=== PATIENT | female | born 1935 | race Caucasian/White ===

== ENCOUNTER 2022-09-24 17:08 | Emergency (ER) | payer MEDICARE ==
--- NOTE | 2022-09-24 18:20 | ED ---
Recheck HPI - General Chief Complaint: Recheck/Abnormal Lab/Rx Stated Complaint: abn labs Time Seen by Provider: 09/24/22 18:20 Source: patient, family Mode of arrival: wheelchair - History of Present Illness Initial Comments: Jo Ann is a pleasant 87-year-old female presents the ER today after outpatient labs revealed a hemoglobin of 6.8. Patient was admitted to [facility] in July she had a cardiac cath which identified clean coronary arteries however she had atrial fibrillation and was started on eliquis and Plavix. Since that time she has had frequent nosebleeds she's been seen in the ER for the nosebleeds. Today she had outpatient follow-up with the cardiology office they performed labs and called her to tell her that her hemoglobin was 6.8. Patient does re port that she has some fatigue, she gets short of breath with any activity. She is not having any chest pain. - Related Data Home Medications Medication Instructions Recorded Confirmed Apixaban [Eliquis] 2.5 mg PO DIRECTED 09/24/22 09/24/22 Clopidogrel [Plavix] 75 mg PO DIRECTED 09/24/22 09/24/22 Empagliflozin [Jardiance] 10 mg PO DIRECTED 09/24/22 09/24/22 Metoprolol Succinate [Toprol XL] 100 mg PO DIRECTED 09/24/22 09/24/22 Allergies Allergy/AdvReac Type Severity Reaction Status Date / Time codeine Allergy Unknown Verified 09/24/22 18:10 Review of Systems ROS Statement: Those systems with pertinent positive or pertinent negative responses have been documented in the HPI. ROS Other: All systems not noted in ROS Statement are negative. Past Medical History Past Medical History: Atrial Flutter, Hyperlipidemia, Hypertension, Myocardial Infarction ([place]) History of Any Multi-Drug Resistant Organisms: None Reported Past Surgical History: Adenoidectomy, Heart Catheterization, Tonsillectomy Past Psychological History: No Psychological Hx Reported Smoking Status: Never smoker Past Alcohol Use History: None Reported Past Drug Use History: None Reported General Exam - General Exam Comments Initial Comments: Physical Exam GENERAL: Patient is well-developed and well-nourished. Patient is nontoxic and well-hydrated and is in no distress HENT: Normocephalic, Atraumatic EYES: PERRL, EOMI Conjuntival pallor PULMONARY: Unlabored respirations CARDIOVASCULAR: Tachycardic Warm and well perfused extremities ABDOMEN: Non-distended SKIN: Pale : Deferred NEUROLOGIC: Alert and oriented Normal speech Normal gait MUSCULOSKELETAL: Moving all extremities with no apparent injury PSYCHIATRIC: No SI/HI Course Vital Signs 09/24/22 09/24/22 09/24/22 17:10 20:30 20:40 Temperature 97.7 F Pulse Rate 125 H Respiratory 18 Rate Blood Pressure 114/70 102/72 104/69 O2 Sat by Pulse 97 Oximetry 09/24/22 09/24/22 09/24/22 20:50 21:00 21:20 Temperature 97.1 F L 97.1 F L 98.0 F Pulse Rate 94 93 94 Respiratory 18 18 18 Rate Blood Pressure 103/72 98/67 102/68 O2 Sat by Pulse Oximetry 09/24/22 21:40 Temperature 97.5 F L Pulse Rate 100 Respiratory 16 Rate Blood Pressure 100/65 O2 Sat by Pulse Oximetry Medical Decision Making - Medical Decision Making Patient was seen and evaluated history is obtained from the patient and review of her medical records from [facility]. Patient had outpatient lab with a hemoglobin of 6.8, labs were repeated today and her 7.5 however patient does have symptomatic anemia with tachycardia and exertional dyspnea. Patient consented to blood transfusion, considering that she is a cardiac patient with acute anemia secondary to blood loss and she is symptomatic we will transfuse one unit. A unit of blood was ordered for transfusion. Patient received transf usion without reaction, heart rate improved patient reported feeling somewhat better and was comfortable with plan for discharge home continued outpatient management. Was pt. sent in by a medical professional or institution (, PA, ADVERTISING DISPATCH CLERK, urgent care, hospital, or prison...) When possible be specific @ -Yes, some by char filter operator helper office Did you speak to anyone other than the patient for history (EMS, parent, family, police, friend...)? What history was obtained from this source @ -No Did you review nursing and triage notes (agree or disagree)? Why? @ -I reviewed and agree with nursing and triage notes Were old charts reviewed (outside hosp., previous admission, EMS record, old EKG, old radiological studies, urgent care reports/EKG's, prison records)? Report findings @ -Charts from [facility] were reviewed Differential Diagnosis (chest pain, altered mental status, abdominal pain women, abdominal pain men, vaginal bleeding, weakness, fever, dyspnea, syncope, headache, dizziness, GI bleed, back pain, seizure, CVA, palpatations, mental health, musculoskeletal)? @ -not applicable EKG interpreted by me (3pts min.). @ -As above X-rays interpreted by me (1pt min.). @ -None done CT interpreted by me (1pt min.). @ -None done U/S interpreted by me (1pt. min.). @ -None done What testing was considered but not performed or refused? (CT, X-rays, U/S, labs)? Why? @ -None What meds were considered but not given or refused? Why? @ -None Did you discuss the management of the patient with other professionals (professionals i.e. , PA, ADVERTISING DISPATCH CLERK, lab, RT, psych nurse, social contact worker, scuba instructor, teacher, chief customer officer, correctional case manager)? Give summary @ -No Was smoking cessation discussed for >3mins.? @ -No Was critical care preformed (if so, how long)? @ -Acute symptomatic anemia requiring blood transfusion, critical care time 30 minutes Were there social determinants of health that impacted care today? How? (Homelessness, low income, unemployed, alcoholism, drug addiction, transportation, low edu. Level, literacy, decrease access to med. care, penitentiary, rehab)? @ -No Was there de-escalation of care discussed even if they declined (Discuss DNR or withdrawal of care, Hospice)? DNR status @ -No What co-morbidities impacted this encounter? (DM, HTN, Smoking, COPD, CAD, Cancer, CVA, ARF, Chemo, Hep., AIDS, mental health diagnosis, sleep apnea, morbid obesity)? @ -None Was patient admitted / discharged? Hospital course, mention meds given and route, prescriptions, significant lab abnormalities, going to OR and other p ertinent info. @ -Discharge Undiagnosed new problem with uncertain prognosis? @ -No Drug Therapy requiring intensive monitoring for toxicity (Heparin, Nitro, Insulin, Cardizem)? @ -No Were any procedures done? @ -No Diagnosis/symptom? @ -Symptomatic anemia Acute, or Chronic, or Acute on Chronic? @ -Acute Uncomplicated (without systemic symptoms) or Complicated (systemic symptoms)? @ -Complicated Side effects of treatment? @ -No Exacerbation, Progression, or Severe Exacerbation? @ -No Poses a threat to life or bodily function? How? (Chest pain, [place], [place], pneumonia, PE, COPD, DKA, ARF, appy, cholecystitis, CVA, Diverticulitis, Homicidal, Suicidal, threat to staff... and all critical care pts) @ -Yes - Lab Data Result diagrams: 09/24/22 18:19 09/24/22 18:19 Lab Results 09/24/22 09/24/22 09/24/22 Range/Units 17:40 18:00 18:19 WBC 6.9 (3.8-10.6) k/uL RBC 2.64 L (3.80-5.40) m/uL Hgb 7.5 L (11.4-16.0) gm/dL Hct 23.3 L (34.0-46.0) % MCV 88.4 (80.0-100.0) fL MCH 28.4 (25.0-35.0) pg MCHC 32.2 (31.0-37.0) g/dL RDW 15.7 H (11.5-15.5) % Plt Count 330 (150-450) k/uL MPV 7.8 Neutrophils % 56 % Lymphocytes % 23 % Monocytes % 11 % Eosinophils % 6 % Basophils % 1 % Neutrophils # 3.9 (1.3-7.7) k/uL Lymphocytes # 1.6 (1.0-4.8) k/uL Monocytes # 0.8 (0-1.0) k/uL Eosinophils # 0.4 (0-0.7) k/uL Basophils # 0.1 (0-0.2) k/uL Hypochromasia Marked Poikilocytosis Moderate Sodium (137-145) mmol/L Potassium (3.5-5.1) mmol/L Chloride (98-107) mmol/L Carbon Dioxide (22-30) mmol/L Anion Gap mmol/L BUN (7-17) mg/dL Creatinine (0.52-1.04) mg/dL Est GFR (CKD-EPI)AfAm (>60 ml/min/1.73 sqM) Est GFR (CKD-EPI)NonAf (>60 ml/min/1.73 sqM) Glucose (74-99) mg/dL Calcium (8.4-10.2) mg/dL Total Bilirubin (0.2-1.3) mg/dL AST (14-36) U/L ALT (4-34) U/L Alkaline Phosphatase (38-126) U/L Total Protein (6.3-8.2) g/dL Albumin (3.5-5.0) g/dL Blood Type O Negative Blood Type Confirm O Negative Blood Type Recheck No Previous Record Bld Type Recheck Status CABO Indicated Antibody Screen NEGATIVE Crossmatch See Detail Spec Expiration Date 09/27/2022 - 233909/24/22 Range/Units 18:19 WBC (3.8-10.6) k/uL RBC (3.80-5.40) m/uL Hgb (11.4-16.0) gm/dL Hct (34.0-46.0) % MCV (80.0-100.0) fL MCH (25.0-35.0) pg MCHC (31.0-37.0) g/dL RDW (11.5-15.5) % Plt Count (150-450) k/uL MPV Neutrophils % % Lymphocytes % % Monocytes % % Eosinophils % % Basophils % % Neutrophils # (1.3-7.7) k/uL Lymphocytes # (1.0-4.8) k/uL Monocytes # (0-1.0) k/uL Eosinophils # (0-0.7) k/uL Basophils # (0-0.2) k/uL Hypochromasia Poikilocytosis Sodium 136 L (137-145) mmol/L Potassium 3.9 (3.5-5.1) mmol/L Chloride 108 H (98-107) mmol/L Carbon Dioxide 15 L (22-30) mmol/L Anion Gap 13 mmol/L BUN 23 H (7-17) mg/dL Creatinine 0.72 (0.52-1.04) mg/dL Est GFR (CKD-EPI)AfAm 88 (>60 ml/min/1.73 sqM) Est GFR (CKD-EPI)NonAf 76 (>60 ml/min/1.73 sqM) Glucose 137 H (74-99) mg/dL Calcium 9.0 (8.4-10.2) mg/dL Total Bilirubin 0.8 (0.2-1.3) mg/dL AST 26 (14-36) U/L ALT 21 (4-34) U/L Alkaline Phosphatase 81 (38-126) U/L Total Protein 6.3 (6.3-8.2) g/dL Albumin 3.3 L (3.5-5.0) g/dL Blood Type Blood Type Confirm Blood Type Recheck Bld Type Recheck Status Antibody Screen Crossmatch Spec Expiration Date Disposition Clinical Impression: Symptomatic anemia Disposition: HOME SELF-CARE Condition: Stable Additional Instructions: Follow with your primary care for continued monitoring, return to the ER for evaluation of any worsening fatigue, shortness of breath or any new or concerning symptoms. Is patient prescribed a controlled substance at d/c from ED?: No Referrals: Lynette Valdez DO [Primary Care Provider] - 1-2 days
[2022-09-24 18:38] LABS: Basophils # (A) 0.1 k/uL (0-0.2); Basophils % (A) 1 %; Eosinophils # (A) 0.4 k/uL (0-0.7); Eosinophils % (A) 6 %; HCT 23.3 % (34.0-46.0); HGB 7.5 gm/dL (11.4-16.0); Hypochromasia Marked; Lymphocytes # (A) 1.6 k/uL (1.0-4.8); Lymphocytes % (A) 23 %; MCH 28.4 pg (25.0-35.0); MCHC 32.2 g/dL (31.0-37.0); MCV 88.4 fL (80.0-100.0); Mean Platelet Volume 7.8; Monocytes # (A) 0.8 k/uL (0-1.0); Monocytes % (A) 11 %; Neutrophils # (A) 3.9 k/uL (1.3-7.7); Neutrophils % (A) 56 %; Platelet Count 330 k/uL (150-450); Poikilocytosis Moderate; RBC 2.64 m/uL (3.80-5.40); RDW 15.7 % (11.5-15.5); WBC 6.9 k/uL (3.8-10.6)
[2022-09-24 18:58] LABS: ALT 21 U/L (4-34); AST 26 U/L (14-36); African American GFR (CKD) 88 (>60 ml/min/1.73 sqM); Albumin 3.3 g/dL (3.5-5.0); Alkaline Phosphatase 81 U/L (38-126); Anion Gap 13 mmol/L; Blood Urea Nitrogen 23 mg/dL (7-17); Carbon Dioxide 15 mmol/L (22-30); Chloride 108 mmol/L (98-107); Glucose 137 mg/dL (74-99); Non-African American GFR(CKD) 76 (>60 ml/min/1.73 sqM); Potassium 3.9 mmol/L (3.5-5.1); Sodium 136 mmol/L (137-145); Total Bilirubin 0.8 mg/dL (0.2-1.3); Total Protein 6.3 g/dL (6.3-8.2)
[2022-09-24 22:44] VITALS: RESP 16
[2022-09-24 23:04] VITALS: BP 105/73; PULSE 75; TEMP 98
== END 2022-09-24 23:24 | disposition home or self-care (01) ==
LOC: EC 17:08
DX: D64.9 Anemia, unspecified (principal); I10 Essential (primary) hypertension; I25.2 Old myocardial infarction; I48.91 Unspecified atrial fibrillation; Z88.5 Allergy status to narcotic agent; Z79.01 Long term (current) use of anticoagulants; Z79.899 Other long term (current) drug therapy
CPT/HCPCS: 36415; 86900; 86901; 80053; 85025; 86850; 86920; 99284; 36430; P9016

== ENCOUNTER → 2022-10-08 | Outpatient (CLI) | payer MEDICARE ==
[2022-10-09 02:56] LABS: ALT 23 U/L (8-44); AST 25 U/L (13-35); Albumin 3.3 d/dL (3.8-4.9); Albumin/Globulin Ratio 1.43 Ratio (1.60-3.17); Alkaline Phosphatase 79 U/L (41-126); BUN/Creat Ratio 22.89 Ratio (12.00-20.00); Blood Urea Nitrogen 20.6 mg/dL (9.0-27.0); Calcium 8.7 mg/dL (8.7-10.3); Carbon Dioxide 17.8 mmol/L (21.6-31.8); Chloride 103 mmol/L (96-109); Chol/HDL Ratio 2.99 Ratio; Globulin 2.3 d/dL (1.6-3.3); Glucose 101 mg/dL (70-110); LDL Cholesterol,Calculated 40.6 mg/dL (0.0-131.0); Potassium 3.9 mmol/L (3.5-5.5); Sodium 137 mmol/L (135-145); Total Bilirubin 0.7 mg/dL (0.3-1.2); Total Protein 5.6 d/dL (6.2-8.2)
[2022-10-09 03:05] LABS: HCT 27.5 % (37.2-46.3); HGB 7.7 d/dL (12.0-15.0); MCH 25.7 pg (27.0-32.0); MCV 91.7 FL (80.0-97.0); Mean Platelet Volume 10.2 FL (9.5-12.2); NRBC Per 100 WBC 0 X 10*3/uL (0.00-0.01); Platelet Count 273 X 10*3/uL (140-440); RDW 17.2 % (11.5-14.5); WBC 7.16 X 10*3/uL (4.50-10.00)
== END | disposition home or self-care (01) ==
LOC: LABWHC1 16:18
PROVIDERS: ATTEND Family Medicine
DX: I10 Essential (primary) hypertension (principal); E11.9 Type 2 diabetes mellitus without complications; D64.9 Anemia, unspecified; I48.91 Unspecified atrial fibrillation
CPT/HCPCS: 36415; 80053; 80061; 83036; 84443; 85027

== ENCOUNTER → 2022-12-21 | Outpatient (CLI) | payer MEDICARE ==
[2022-12-21 11:03] LABS: HCT 33.4 % (37.2-46.3); HGB 9.8 d/dL (12.0-15.0); MCH 24.2 pg (27.0-32.0); MCHC 29.3 d/dL (32.0-37.0); MCV 82.5 FL (80.0-97.0); Mean Platelet Volume 9.8 FL (9.5-12.2); NRBC Per 100 WBC 0 X 10*3/uL (0.00-0.01); Platelet Count 242 X 10*3/uL (140-440); RBC 4.05 X 10*6/uL (4.10-5.20); RDW 21.2 % (11.5-14.5)
[2022-12-21 11:38] LABS: ALT 20 U/L (8-44); AST 22 U/L (13-35); Albumin/Globulin Ratio 1.15 Ratio (1.60-3.17); Alkaline Phosphatase 94 U/L (41-126); Blood Urea Nitrogen 31.3 mg/dL (9.0-27.0); Chloride 99 mmol/L (96-109); Globulin 2.6 d/dL (1.6-3.3); Glucose 125 mg/dL (70-110); Potassium 2.3 mmol/L (3.5-5.5); Sodium 143 mmol/L (135-145); Total Bilirubin 1.2 mg/dL (0.3-1.2); Total Protein 5.6 d/dL (6.2-8.2)
== END | disposition home or self-care (01) ==
LOC: LABWHC1 07:18
PROVIDERS: ATTEND Family Medicine
DX: R69 Illness, unspecified (principal)
CPT/HCPCS: 36415; 80053; 85027

== ENCOUNTER 2022-12-28 06:26 | Inpatient (IN) | payer MEDICARE ==
--- NOTE | 2022-12-28 06:43 | ED ---
General Adult HPI - General Source: patient, family, RN notes reviewed Mode of arrival: wheelchair Limitations: altered mental status <Amish Baez - Last Filed: 12/28/22 06:42> <Britt Maradiaga - Last Filed: 12/28/22 16:28> - General Chief complaint: Altered Mental Status Stated complaint: Confusion, leg edema, shaky Time Seen by Provider: 12/28/22 06:42 - History of Present Illness Initial comments: 87-year-old female presents emergency department with family for evaluation of increased confusion, weakness. Patient recently has been placed on Lasix and is had 25 pound weight loss during diuresis. Patient noticed that she's had some notable change in mental status and generalized weakness without any focal weakness patient denies any chest pain she does still have some mild leg edema. They are concerned about possible urinary tract infection. (Amish Baez) 87-year-old female with past history of A. fib, hypertension, hyperlipidemia who presents to the emergency department with weakness. Daughters are at bedside and provided the history. States the patient has been more weak and confused recently. She has had significant water weight gain. It was recommended by her primary that she be admitted to the hospital for diuresis however the patient did not want to be admitted. They then placed the patient on a second diuretic for which the patient has been taking and she lost a significant amount of weight within the past 3 weeks. Patient denies any pain. She denies any difficulty breathing. No abdominal pain. Denies any difficulties having bowel movements. No reported fevers. No falls. No other alleviating, precipitating or modifying factors (Britt Maradiaga) - Related Data Home Medications Medication Instructions Recorded Confirmed B-Core 2 tab PO TID 12/28/22 12/28/22 Cardio Plus 2 cap PO TID 12/28/22 12/28/22 Chlorophyll 1 tab PO TID 12/28/22 12/28/22 L.acidoph,Paracasei, B.lactis 1 cap PO DAILY 12/28/22 12/28/22 [Probiotic] Lifeblood 2 tab PO W/LUNCH 12/28/22 12/28/22 Metoprolol Succinate (ER) [Toprol 25 mg PO HS 12/28/22 12/28/22 Xl] Acton-3 3 cap PO BID 12/28/22 12/28/22 Potassium Chloride [Klor-Con M20] 20 meq PO BID@0600,1200 12/28/22 12/28/22 Prot 1 dose PO TID 12/28/22 12/28/22 Renafood 3 tab PO BID 12/28/22 12/28/22 Therafood 2 tab PO W/LUNCH 12/28/22 12/28/22 Torsemide [Demadex] 20 mg PO DAILY 12/28/22 12/28/22 Vitamin C 1 tab PO DAILY@1900 12/28/22 12/28/22 metOLazone 2.5 mg PO Q2D 12/28/22 12/28/22 Allergies Allergy/AdvReac Type Severity Reaction Status Date / Time codeine Allergy Unknown Verified 12/28/22 12:14 ticagrelor [From Brilinta] AdvReac ASHISH Verified 12/28/22 12:15 Review of Systems ROS Other: All systems not noted in ROS Statement are negative. <Amish Baez - Last Filed: 12/28/22 06:42> ROS Other: All systems not noted in ROS Statement are negative. <Britt Maradiaga - Last Filed: 12/28/22 16:28> ROS Statement: Those systems with pertinent positive or pertinent negative responses have been documented in the HPI. Past Medical History Past Medical History: Atrial Flutter, Hyperlipidemia, Hypertension, Myocardial Infarction ([place]) History of Any Multi-Drug Resistant Organisms: None Reported Past Surgical History: Adenoidectomy, Heart Catheterization, Tonsillectomy Past Psychological History: No Psychological Hx Reported Smoking Status: Never smoker Past Alcohol Use History: None Reported Past Drug Use History: None Reported <Amish Baez - Last Filed: 12/28/22 06:42> General Exam Limitations: altered mental status General appearance: alert, in no apparent distress Head exam: Present: atraumatic, normocephalic, normal inspection <Amish Baez - Last Filed: 12/28/22 06:42> General appearance: alert, in no apparent distress Head exam: Present: atraumatic, normocephalic, normal inspection Eye exam: Present: normal appearance, PERRL, EOMI. Absent: scleral icterus, conjunctival injection, periorbital swelling ENT exam: Present: normal exam, mucous membranes moist Neck exam: Present: normal inspection. Absent: tenderness, meningismus, lymphadenopathy Respiratory exam: Present: rales. Absent: respiratory distress, wheezes, rhonchi, stridor Cardiovascular Exam: Present: tachycardia, irregular rhythm, normal heart sounds. Absent: systolic murmur, diastolic murmur, rubs, gallop, clicks GI/Abdominal exam: Present: soft, normal bowel sounds. Absent: distended, tenderness, guarding, rebound, rigid Extremities exam: Present: normal inspection, full ROM, normal capillary refill. Absent: tenderness, pedal edema, joint swelling, calf tenderness Back exam: Present: normal inspection Neurological exam: Present: alert, oriented X3, CN II-XII intact Psychiatric exam: Present: normal affect, normal mood Skin exam: Present: warm, dry, intact, normal color. Absent: rash <Britt Maradiaga - Last Filed: 12/28/22 16:28> - General Exam Comments Initial Comments: Visual Physical Exam Vital signs reviewed General: Well-appearing, nontoxic, no acute distress. Head: Normocephalic, atraumatic Eyes: PERRLA, EOMI ENT: Airway patent Chest: Nonlabored breathing Skin: No visual rash, normal skin tone Neuro: Alert and oriented 3 Musculoskeletal: No gross abnormalities (Amish Baez) Course Vital Signs 12/28/22 12/28/22 12/28/22 06:32 08:50 09:00 Temperature 97.8 F Pulse Rate 111 H 86 86 Respiratory 18 20 20 Rate Blood Pressure 118/67 145/79 149/85 O2 Sat by Pulse 95 98 98 Oximetry 12/28/22 12/28/22 12/28/22 10:00 12:00 13:00 Temperature Pulse Rate 103 H 110 H 107 H Respiratory 20 20 16 Rate Blood Pressure 98/62 98/60 109/87 O2 Sat by Pulse 98 94 L 94 L Oximetry 12/28/22 12/28/22 14:00 16:00 Temperature Pulse Rate 102 H 95 Respiratory 20 20 Rate Blood Pressure 109/64 105/60 O2 Sat by Pulse 94 L 98 Oximetry Medical Decision Making <Amish Baez - Last Filed: 12/28/22 06:42> - Lab Data Result diagrams: 12/28/22 08:46 12/28/22 08:46 <Britt Maradiaga - Last Filed: 12/28/22 16:28> - Medical Decision Making I performed a quick note portion of this chart signed Amish Baez PA-C (Amish Baez) Was pt. sent in by a medical professional or institution (HOMAR Adame, UNMANNED AIRCRAFT SYSTEMS ROBOTICIST, urgent care, hospital, or shelter...) When possible be specific @ -[No] Did you speak to anyone other than the patient for history (EMS, parent, family, police, friend...)? What history was obtained from this source @ -[No] Did you review nursing and triage notes (agree or disagree)? Why? @ -[I reviewed and agree with nursing and triage notes] Were old charts reviewed (outside hosp., previous admission, EMS record, old EKG, old radiological studies, urgent care reports/EKG's, shelter records)? Report findings @ -[No old charts were reviewed] Differential Diagnosis (chest pain, altered mental status, abdominal pain women, abdominal pain men, vaginal bleeding, weakness, fever, dyspnea, syncope, headache, dizziness, GI bleed, back pain, seizure, CVA, palpatations, mental health, musculoskeletal)? @ -[not applicable] EKG interpreted by me (3pts min.). @ -Yes and demonstrates A. fib with a rate of 108. QRS 117. QTC of 439. Multiple PVCs. No identifiable ST segment elevation or depression. Significant baseline artifact X-rays interpreted by me (1pt min.). @ -[None done] CT interpreted by me (1pt min.). @ -[None done] U/S interpreted by me (1pt. min.). @ -[None done] What testing was considered but not performed or refused? (CT, X-rays, U/S, labs)? Why? @ -[None] What meds were considered but not given or refused? Why? @ -[None] Did you discuss the management of the patient with other professionals (professionals i.e. HOMAR Adame, UNMANNED AIRCRAFT SYSTEMS ROBOTICIST, lab, RT, psych nurse, social and political studies professor, assistant offset press operator, teacher, training systems officer, manager case)? Give summary @ -[No] Was smoking cessation discussed for >3mins.? @ -[No] Was critical care preformed (if so, how long)? @ -[No] Were there social determinants of health that impacted care today? How? (Homelessness, low income, unemployed, alcoholism, drug addiction, transportation, low edu. Level, literacy, decrease access to med. care, correction, rehab)? @ -[No] Was there de-escalation of care discussed even if they declined (Discuss DNR or withdrawal of care, Hospice)? DNR status @ -[No] What co-morbidities impacted this encounter? (DM, HTN, Smoking, COPD, CAD, Cancer, CVA, ARF, Chemo, Hep., AIDS, mental health diagnosis, sleep apnea, morbid obesity)? @ -[None] Was patient admitted / discharged? Hospital course, mention meds given and route, prescriptions, significant lab abnormalities, going to OR and other pertinent info. @ -Upon arrival patient was placed into room 6. Thorough history and physical exam is performed. IV access is established and laboratory studies were conducted. Potassium markedly low at 2.3. Troponin is mildly elevated at 0.044. Chest x-ray demonstrated some pulmonary vascular congestion. Due to patient's reported altered mental status, hypokalemia and elevated troponin she will be admitted. Spoke with Dr. Damon who agreed to admit the patient. I we'll trend the patient's troponins. I will replace her potassium before having her Lasix. Cardiology will be counseled it. Patient is waiting a bed on the floor Undiagnosed new problem with uncertain prognosis? @ -[No] Drug Therapy requiring intensive monitoring for toxicity (Heparin, Nitro, Insulin, Cardizem)? @ -[No] Were any procedures done? @ -[No] Diagnosis/symptom? @ -[default] Acute, or Chronic, or Acute on Chronic? @ -[default] Uncomplicated (without systemic symptoms) or Complicated (systemic symptoms)? @ -[default] Side effects of treatment? @ -[No] Exacerbation, Progression, or Severe Exacerbation? @ -[No] Poses a threat to life or bodily function? How? (Chest pain, [place], [place], pneumonia, PE, COPD, DKA, ARF, appy, cholecystitis, CVA, Diverticulitis, Homicidal, Suic idal, threat to staff... and all critical care pts) @ -[No] (Britt Maradiaga) - Lab Data Lab Results 12/28/22 12/28/22 12/28/22 Range/Units 08:46 08:46 08:46 WBC 7.4 (3.8-10.6) k/uL RBC 4.24 (3.80-5.40) m/uL Hgb 10.6 L (11.4-16.0) gm/dL Hct 35.0 (34.0-46.0) % MCV 82.6 (80.0-100.0) fL MCH 25.0 (25.0-35.0) pg MCHC 30.3 L (31.0-37.0) g/dL RDW 19.5 H (11.5-15.5) % Plt Count 239 (150-450) k/uL MPV 8.3 Neutrophils % 60 % Lymphocytes % 26 % Monocytes % 8 % Eosinophils % 2 % Basophils % 0 % Neutrophils # 4.4 (1.3-7.7) k/uL Lymphocytes # 1.9 (1.0-4.8) k/uL Monocytes # 0.6 (0-1.0) k/uL Eosinophils # 0.2 (0-0.7) k/uL Basophils # 0.0 (0-0.2) k/uL Hypochromasia Marked Anisocytosis Slight Microcytosis Slight Sodium 138 (137-145) mmol/L Potassium 2.3 L* (3.5-5.1) mmol/L Chloride 93 L (98-107) mmol/L Carbon Dioxide 35 H (22-30) mmol/L Anion Gap 10 mmol/L BUN 39 H (7-17) mg/dL Creatinine 0.78 (0.52-1.04) mg/dL Est GFR (CKD-EPI)AfAm 79 (>60 ml/min/1.73 sqM) Est GFR (CKD-EPI)NonAf 69 (>60 ml/min/1.73 sqM) Glucose 175 H (74-99) mg/dL Calcium 8.9 (8.4-10.2) mg/dL Magnesium 1.8 (1.6-2.3) mg/dL Total Bilirubin 1.6 H (0.2-1.3) mg/dL AST 29 (14-36) U/L ALT 23 (4-34) U/L Alkaline Phosphatase 107 (38-126) U/L Troponin I (0.000-0.034) ng/mL NT-Pro-B Natriuret Pep 857 pg/mL Total Protein 6.2 L (6.3-8.2) g/dL Albumin 3.1 L (3.5-5.0) g/dL Urine Color Yellow Urine Appearance Clear (Clear) Urine pH 6.0 (5.0-8.0) Ur Specific [place] 1.013 (1.001-1.035) Urine Protein Trace H (Negative) Urine Glucose (UA) Negative (Negative) Urine Ketones Negative (Negative) Urine Blood Negative (Negative) Urine Nitrite Negative (Negative) Urine Bilirubin Negative (Negative) Urine Urobilinogen <2.0 (<2.0) mg/dL Ur Leukocyte Esterase Negative (Negative) 12/28/22 Range/Units 08:46 WBC (3.8-10.6) k/uL RBC (3.80-5.40) m/uL Hgb (11.4-16.0) gm/dL Hct (34.0-46.0) % MCV (80.0-100.0) fL MCH (25.0-35.0) pg MCHC (31.0-37.0) g/dL RDW (11.5-15.5) % Plt Count (150-450) k/uL MPV Neutrophils % % Lymphocytes % % Monocytes % % Eosinophils % % Basophils % % Neutrophils # (1.3-7.7) k/uL Lymphocytes # (1.0-4.8) k/uL Monocytes # (0-1.0) k/uL Eosinophils # (0-0.7) k/uL Basophils # (0-0.2) k/uL Hypochromasia Anisocytosis Microcytosis Sodium (137-145) mmol/L Potassium (3.5-5.1) mmol/L Chloride (98-107) mmol/L Carbon Dioxide (22-30) mmol/L Anion Gap mmol/L BUN (7-17) mg/dL Creatinine (0.52-1.04) mg/dL Est GFR (CKD-EPI)AfAm (>60 ml/min/1.73 sqM) Est GFR (CKD-EPI)NonAf (>60 ml/min/1.73 sqM) Glucose (74-99) mg/dL Calcium (8.4-10.2) mg/dL Magnesium (1.6-2.3) mg/dL Total Bilirubin (0.2-1.3) mg/dL AST (14-36) U/L ALT (4-34) U/L Alkaline Phosphatase (38-126) U/L Troponin I 0.044 H* (0.000-0.034) ng/mL NT-Pro-B Natriuret Pep pg/mL Total Protein (6.3-8.2) g/dL Albumin (3.5-5.0) g/dL Urine Color Urine Appearance (Clear) Urine pH (5.0-8.0) Ur Specific [place] (1.001-1.035) Urine Protein (Negative) Urine Glucose (UA) (Negative) Urine Ketones (Negative) Urine Blood (Negative) Urine Nitrite (Negative) Urine Bilirubin (Negative) Urine Urobilinogen (<2.0) mg/dL Ur Leukocyte Esterase (Negative) Disposition <Amish Baez - Last Filed: 12/28/22 06:42> Is patient prescribed a controlled substance at d/c from ED?: No Time of Disposition: 11:12 Decision to Admit Reason: Admit from EC Decision Date: 12/28/22 Decision Time: 11:12 <Britt Maradiaga - Last Filed: 12/28/22 16:28> Clinical Impression: Hypokalemia, CHF exacerbation, Elevated troponin Disposition: ADMITTED IP TO THIS HOSP Condition: Stable
[2022-12-28 09:05] LABS: Anisocytosis Slight; Basophils % (A) 0 %; Eosinophils # (A) 0.2 k/uL (0-0.7); Eosinophils % (A) 2 %; HGB 10.6 gm/dL (11.4-16.0); Hypochromasia Marked; Lymphocytes # (A) 1.9 k/uL (1.0-4.8); Lymphocytes % (A) 26 %; MCHC 30.3 g/dL (31.0-37.0); MCV 82.6 fL (80.0-100.0); Mean Platelet Volume 8.3; Microcytosis Slight; Monocytes # (A) 0.6 k/uL (0-1.0); Monocytes % (A) 8 %; Neutrophils # (A) 4.4 k/uL (1.3-7.7); Neutrophils % (A) 60 %; Platelet Count 239 k/uL (150-450); RBC 4.24 m/uL (3.80-5.40); RDW 19.5 % (11.5-15.5); WBC 7.4 k/uL (3.8-10.6)
[2022-12-28 09:12] LABS: Appearance,Urine Clear (Clear); Bilirubin,Urine Negative (Negative); Blood,Urine Negative (Negative); Color,Urine Yellow; Glucose,Urine (UA) Negative (Negative); Ketones,Urine Negative (Negative); Leukocyte Esterase,Urine Negative (Negative); Nitrite,Urine Negative (Negative); Protein,Urine Trace (Negative); Specific Gravity,Urine 1.013 (1.001-1.035); Urobilinogen,Urine <2.0 mg/dL (<2.0)
[2022-12-28 09:47] LABS: ALT 23 U/L (4-34); AST 29 U/L (14-36); African American GFR (CKD) 79 (>60 ml/min/1.73 sqM); Albumin 3.1 g/dL (3.5-5.0); Alkaline Phosphatase 107 U/L (38-126); Anion Gap 10 mmol/L; Blood Urea Nitrogen 39 mg/dL (7-17); Calcium 8.9 mg/dL (8.4-10.2); Carbon Dioxide 35 mmol/L (22-30); Chloride 93 mmol/L (98-107); Glucose 175 mg/dL (74-99); Magnesium 1.8 mg/dL (1.6-2.3); Non-African American GFR(CKD) 69 (>60 ml/min/1.73 sqM); Sodium 138 mmol/L (137-145); Total Bilirubin 1.6 mg/dL (0.2-1.3); Total Protein 6.2 g/dL (6.3-8.2)
[2022-12-28 09:48] LABS: Potassium 2.3 mmol/L (3.5-5.1)
[2022-12-28 09:50] LABS: NT-Pro-B-Type Natriuretic Pept 857 pg/mL
--- NOTE | 2022-12-28 10:22 | XR ---
EXAMINATION TYPE: XR chest 2V DATE OF EXAM: 12/28/2022 10:18 AM COMPARISON: Chest radiographs from 09/18/2022 TECHNIQUE: XR chest 2V Frontal and lateral views of the chest. CLINICAL INDICATION:Female, 87 years old with history of Cough/pain; FINDINGS: Lungs/Pleura: Moderate size right pleural effusion and small left pleural effusion. No pneumothorax. Right basilar atelectasis. Pulmonary vascularity: Pulmonary vascular congestion. Heart/mediastinum: Cardiomediastinal silhouette is enlarged and stable. Musculoskeletal: No acute osseous pathology. IMPRESSION: Cardiomegaly, pulmonary vascular congestion and bilateral pleural effusions. Correlate with BNP for c ongestive heart failure. Superimposed infectious process is not excluded.
[2022-12-28] MEDS ORDERED: POTASSIUM CHLORIDE 20 MEQ in WATER FOR INJECTION 1 100ML.BAG IVPB STA (11:09)
[2022-12-28] MEDS ORDERED: POTASSIUM CHLORIDE ER 20 MEQ TAB.ER PO STA (11:09)
[2022-12-28] MEDS ORDERED: NALOXONE 0.4 MG/ML 1 ML VIAL IV PRN (11:19)
[2022-12-28] MEDS ORDERED: Potassium Replacement Protocol 1 EACH MISC MISCELLANE PRN (11:28)
--- NOTE | 2022-12-28 13:30 | P.CRDCN ---
History of Present Illness History of present illness: HISTORY OF PRESENT ILLNESS: This is a 87-year-old female with a past medical history significant for acute coronary syndrome secondary to embolization, cardiomyopathy, hypertension, hyperlipidemia, permanent atrial fibrillation, and congestive heart failure. Patient follows in the office with Dr. Paredes. We have been asked to see the patient in consultation for congestive heart failure. Patient examined at the bedside. Patient is hard of hearing. Patient's feeling members are at the bedside. Patient was brought to the hospital for worsening shortness of breath over the past few days. She denies having any chest pain or pressure. The patient's family states she has lost almost 20 pounds in the past few weeks. It is noted that she was seen by Dr. Paredes 12/07/2022. Apparently patient was not responding well to Lasix and she was changed to Demadex. * EKG reveals atrial fibrillation with mild RVR * Chest xray cardiomegaly, pulmonary vascular congestion and bilateral pleural effusions. * Laboratory data: WBC 7.4. Hemoglobin 10.6. Platelet count 239. Sodium 138. Potassium 2.3. BUN 39. Creatinine 0.78. Troponin 0.044. ProBNP 857. * Current home cardiac medications include Demadex 20 mg daily and metoprolol succinate 25 mg at night * Most recent echocardiogram obtained in October 2022 at [facility] revealing ejection fraction 43% with global hypokinesia, trace aortic valve regurgitation, moderate tricuspid valve regurgitation and mild pulmonary hypertension * Cardiac catheterization history: July 2022 at [facility] revealing acute coronary syndrome due to coronary embolism of the distal OM with 95% stenosis status post coronary thrombectomy with 0% residual stenosis. No evidence of underlying atherosclerotic coronary disease. REVIEW OF SYSTEMS: At the time of my exam: CONSTITUTIONAL: Denies fever or chills. HEENT: Denies blurred vision, vision changes, or eye pain. Denies hemoptysis CARDIOVASCULAR: Denies chest pain. Denies orthopnea. Denies PND. Denies palpitations RESPIRATORY: Denies shortness of breath. GASTROINTESTINAL: Denies abdominal pain. Denies nausea or vomiting. HEMATOLOGIC: Denies bleeding disorders. GENITOURINARY: Denies any blood in urine. SKIN: Denies pruitis. Denies rash. PHYSICAL EXAM: VITAL SIGNS: Reviewed. GENERAL: Well-developed in no acute distress. HEENT: Head is normocephalic. Pupils are equal, round. Sclerae anicteric. Mucous membranes of the mouth are moist. Neck supple. No JVD or thyromegaly LUNGS: Respirations even and unlabored. Lungs essentially clear to auscultation bilaterally. HEART: Irregular rate and rhythm. S1 and S2 heard. ABDOMEN: Soft. Nondistended. Nontender. EXTREMITIES: Normal range of motion. No clubbing or cyanosis. Peripheral pulses intact. Minimal bilateral lower extremity edema NEUROLOGIC: Awake and alert. Oriented x 3. ASSESSMENT: Shortness of breath Bilateral pleural effusions, right greater than left Abnormal troponins, flat, not suggestive of acute coronary syndrome Chronic heart failure with reduced ejection fraction, 43%, proBNP 857 History of ACS due to embolization of distal OM with 95% stenosis with thrombectomy Permanent atrial fibrillation, not on anticoagulation on an outpatient basis secondary to history of rectal bleeding per family Hypertension Hyperlipidemia Hypokalemia PLAN: No need to repeat echocardiogram as this was performed in October 2022 Resume home cardiac medications Continue oral diuretics Consult IR for possible right-sided thoracentesis Further recommendations pending patient course Nurse practitioner note has been reviewed by physician. Signing provider agrees with the documented findings, assessment, and plan of care. Past Medical History Past Medical History: Atrial Flutter, Hyperlipidemia, Hypertension, Myocardial I nfarction ([place]) History of Any Multi-Drug Resistant Organisms: None Reported Past Surgical History: Adenoidectomy, Heart Catheterization, Tonsillectomy Past Psychological History: No Psychological Hx Reported Smoking Status: Never smoker Past Alcohol Use History: None Reported Past Drug Use History: None Reported Medications and Allergies Home Medications Medication Instructions Recorded Confirmed Type B-Core 2 tab PO TID 12/28/22 12/28/22 History Cardio Plus 2 cap PO TID 12/28/22 12/28/22 History Chlorophyll 1 tab PO TID 12/28/22 12/28/22 History L.acidoph,Paracasei, B.lactis 1 cap PO DAILY 12/28/22 12/28/22 History [Probiotic] Lifeblood 2 tab PO W/LUNCH 12/28/22 12/28/22 History Metoprolol Succinate (ER) [Toprol 25 mg PO HS 12/28/22 12/28/22 History Xl] [place]-3 3 cap PO BID 12/28/22 12/28/22 History Potassium Chloride [Klor-Con M20] 20 meq PO BID@0600,1200 12/28/22 12/28/22 History Prot 1 dose PO TID 12/28/22 12/28/22 History Renafood 3 tab PO BID 12/28/22 12/28/22 History Therafood 2 tab PO W/LUNCH 12/28/22 12/28/22 History Torsemide [Demadex] 20 mg PO DAILY 12/28/22 12/28/22 History Vitamin C 1 tab PO DAILY@1900 12/28/22 12/28/22 History metOLazone 2.5 mg PO Q2D 12/28/22 12/28/22 History Allergies Allergy/AdvReac Type Severity Reaction Status Date / Time codeine Allergy Unknown Verified 12/28/22 12:14 ticagrelor [From Brilinta] AdvReac ASHISH Verified 12/28/22 12:15 Physical Exam Vitals: Vital Signs Temp Pulse Resp BP Pulse Ox 12/28/22 10:00 103 H 20 98/62 98 12/28/22 09:00 86 20 149/85 98 12/28/22 08:50 86 20 145/79 98 12/28/22 06:32 97.8 F 111 H 18 118/67 95 Intake and Output 12/27/22 12/28/22 12/28/22 22:59 06:59 14:59 Other: Weight 82.1 kg Results 12/28/22 08:46 12/28/22 08:46 Cardiac Enzymes 12/28/22 12/28/22 Range/Units 08:46 08:46 AST 29 (14-36) U/L Troponin I 0.044 H* (0.000-0.034) ng/mL CBC 12/28/22 Range/Units 08:46 WBC 7.4 (3.8-10.6) k/uL RBC 4.24 (3.80-5.40) m/uL Hgb 10.6 L (11.4-16.0) gm/dL Hct 35.0 (34.0-46.0) % Plt Count 239 (150-450) k/uL Comprehensive Metabolic Panel 12/28/22 Range/Units 08:46 Sodium 138 (137-145) mmol/L Potassium 2.3 L* (3.5-5.1) mmol/L Chloride 93 L (98-107) mmol/L Carbon Dioxide 35 H (22-30) mmol/L BUN 39 H (7-17) mg/dL Creatinine 0.78 (0.52-1.04) mg/dL Glucose 175 H (74-99) mg/dL Calcium 8.9 (8.4-10.2) mg/dL AST 29 (14-36) U/L ALT 23 (4-34) U/L Alkaline Phosphatase 107 (38-126) U/L Total Protein 6.2 L (6.3-8.2) g/dL Albumin 3.1 L (3.5-5.0) g/dL Current Medications Generic Name Dose Route Start Last Admin Trade Name Freq PRN Reason Stop Dose Admin Furosemide 40 mg 12/28/22 16:00 Furosemide 10 Mg/Ml 2 Ml Vial IV 12/28/22 16:01 ONCE ONE Potassium Chloride 20 meq/ IV 100 mls @ 50 mls/hr 12/28/22 11:09 12/28/22 1 1:30 Solution IVPB 12/28/22 13:08 50 mls/hr ONCE STA Administration Miscellaneous Information 1 each 12/28/22 11:28 Potassium Replacement Protocol 1 Each Misc MISCELLANE DAILY PRN Per Protocol Protocol Naloxone HCl 0.2 mg 12/28/22 11:19 Naloxone 0.4 Mg/Ml 1 Ml Vial IV Q2M PRN Opioid Reversal Intake and Output 12/27/22 12/28/22 12/28/22 22:59 06:59 14:59 Other: Weight 82.1 kg 12/28/22 08:46 12/28/22 08:46
[2022-12-28] MEDS: TORSEMIDE 20 MG TAB PO SCH (13:38)
[2022-12-28] MEDS: metOLazone 2.5 MG TAB PO SCH (13:38)
[2022-12-28 14:46] LABS: INR 1.2 (<1.2); Partial Thromboplastin Time 24.9 sec (22.0-30.0); Prothrombin Time 13.1 sec (10.0-12.5)
--- NOTE | 2022-12-28 14:54 | US ---
EXAMINATION TYPE: US chest DATE OF EXAM: 12/28/2022 COMPARISON: Chest x-ray today CLINICAL INDICATION: Female, 87 years old with history of u/s chest to assess for fluid pocket.; TECHNIQUE: Targeted ultrasound of the posterior lower bilateral hemithoraces EXAM MEASUREMENTS: Right Pleural Effusion pocket size: 10.9 cm Right skin surface to fluid distance: 2.9 cm Left Pleural Effusion pocket size: 6.8 cm Left skin surface to fluid distance: 2.8 cm Right side marked for possible thoracentesis outside the dept. Left side NOT marked for possible thoracentesis outside the dept. Pulmonologists are able to review the images in the patient?s EMR. IMPRESSIONS: 1. Moderate right pleural effusion. 2. Small left pleural effusion.
[2022-12-28] MEDS ORDERED: FUROSEMIDE 10 MG/ML 2 ML VIAL IV ONE (16:00)
[2022-12-28] MEDS ORDERED: METOPROLOL SUCCINATE (ER) 50 MG TAB.ER.24H PO STA (19:41)
[2022-12-28] MEDS: METOPROLOL SUCCINATE (ER) 25 MG TAB.ER.24H PO SCH (20:32)
[2022-12-29 06:03] LABS: Glucose,Whole Blood 169 mg/dL (70-110)
[2022-12-29] MEDS: TORSEMIDE 20 MG TAB PO SCH (09:10)
[2022-12-29 09:21] LABS: African American GFR (CKD) 77 (>60 ml/min/1.73 sqM); Anion Gap 12 mmol/L; Blood Urea Nitrogen 39 mg/dL (7-17); Calcium 8.8 mg/dL (8.4-10.2); Carbon Dioxide 32 mmol/L (22-30); Chloride 95 mmol/L (98-107); Glucose 143 mg/dL (74-99); Non-African American GFR(CKD) 67 (>60 ml/min/1.73 sqM); Sodium 139 mmol/L (137-145)
[2022-12-29 09:24] LABS: Anisocytosis Slight; Basophils # (A) 0.1 k/uL (0-0.2); Basophils % (A) 1 %; Eosinophils # (A) 0.1 k/uL (0-0.7); Eosinophils % (A) 2 %; HGB 10.9 gm/dL (11.4-16.0); Hypochromasia Marked; Lymphocytes # (A) 1.5 k/uL (1.0-4.8); Lymphocytes % (A) 22 %; MCH 25.5 pg (25.0-35.0); MCHC 30.4 g/dL (31.0-37.0); Mean Platelet Volume 9.1; Microcytosis Slight; Monocytes # (A) 0.7 k/uL (0-1.0); Monocytes % (A) 10 %; Neutrophils # (A) 4.4 k/uL (1.3-7.7); Neutrophils % (A) 63 %; Platelet Count 210 k/uL (150-450); RBC 4.28 m/uL (3.80-5.40); RDW 19.5 % (11.5-15.5); WBC 6.9 k/uL (3.8-10.6)
[2022-12-29 09:25] LABS: Potassium 2.6 mmol/L (3.5-5.1)
--- NOTE | 2022-12-29 10:51 | P.HPIM ---
History of Present Illness H&P Date: 12/29/22 Chief Complaint: Dyspnea, bilateral lower extremity edema This is a 87-year-old female with past medical history significant for permanent atrial fibrillation, atrial flutter, hypertension, hyperlipidemia, CAD, [place], cardiomyopathy, CHF, presented to the ER with worsening dyspnea. Family members at bedside report patient had shortness of breath for the last month.Followed up last with Dr. Owens on , at which time ,diuretics were changed over to torsemide and placed on metolazone every 2 days. Patient lost 24 pounds over 10 days, developed increased confusion accompanied by increased weakness. Family reports patient baseline is alert and oriented 3, writes letters and is usually active. On Wednesday night patient had increased confusion, alert only to her name and tripped on a heavy stationary rubber rug. Troponins serially 0.044, 0.035, 0.062.EKG report atrial fibrillation with heart rates low 100s, further review as per cardiology. Potassium 2.3 on admission, currently 2.6, receiving further supplementation. O2 sat in the low 90s on room air. BNP 857, chest x-ray reporting cardiomegaly, pulmonary vascular congestion and bilateral pleural effusions. Ultrasound of the chest reported moderate right pleural effusion, marked for potential thoracentesis, small left pleural effusion. INR 1.2. Afebrile, normal WBC. Hemoglobin 10.9, platelets 210. Sodium 139, potassium 2.6, bicarb 32, BUN 39, creatinine 0.8. Blood sugars controlled. Denies chest pain, palpitations, maintaining O2 sats in the mid to high 90s on room air. Review of Systems ROS Statement: Those systems with pertinent positive or pertinent negative responses have been documented in the HPI. ROS Other: All systems not noted in ROS Statement are negative. Past Medical History Past Medical History: Atrial Flutter, Hyperlipidemia, Hypertension, Myocardial Infarction ([place]) Last Myocardial Infarction Date:: august 13, 2022 History of Any Multi-Drug Resistant Organisms: None Reported Past Surgical History: Adenoidectomy, Heart Catheterization, Tonsillectomy Past Anesthesia/Blood Transfusion Reactions: No Reported Reaction Past Psychological History: No Psychological Hx Reported Smoking Status: Never smoker Past Alcohol Use History: None Reported Past Drug Use History: None Reported Medications and Allergies Home Medications Medication Instructions Recorded Confirmed Type B-Core 2 tab PO TID 12/28/22 12/28/22 History Cardio Plus 2 cap PO TID 12/28/22 12/28/22 History Chlorophyll 1 tab PO TID 12/28/22 12/28/22 History L.acidoph,Paracasei, B.lactis 1 cap PO DAILY 12/28/22 12/28/22 History [Probiotic] Lifeblood 2 tab PO W/LUNCH 12/28/22 12/28/22 History Metoprolol Succinate (ER) [Toprol 25 mg PO HS 12/28/22 12/28/22 History Xl] [place]-3 3 cap PO BID 12/28/22 12/28/22 History Potassium Chloride [Klor-Con M20] 20 meq PO BID@0600,1200 12/28/22 12/28/22 History Prot 1 dose PO TID 12/28/22 12/28/22 History Renafood 3 tab PO BID 12/28/22 12/28/22 History Therafood 2 tab PO W/LUNCH 12/28/22 12/28/22 History Torsemide [Demadex] 20 mg PO DAILY 12/28/22 12/28/22 History Vitamin C 1 tab PO DAILY@1900 12/28/22 12/28/22 History metOLazone 2.5 mg PO Q2D 12/28/22 12/28/22 History Allergies Allergy/AdvReac Type Severity Reaction Status Date / Time codeine Allergy Unknown Verified 12/28/22 12:14 ticagrelor [From Brilinta] AdvReac ASHISH Verified 12/28/22 12:15 Physical Exam Vitals: Vital Signs Temp Pulse Pulse Resp BP BP Pulse Ox 12/29/22 09:09 97.5 F L 79 16 103/64 96 12/29/22 04:29 98.3 F 104 H 19 114/83 92 L 12/28/22 23:08 109 H 18 95/64 93 L 12/28/22 20:47 97.9 F 100 18 106/71 92 L 12/28/22 20:30 114 H 18 98/70 95 12/28/22 19:36 141 H 18 103/74 95 12/28/22 17:00 114 H 20 104/38 98 12/28/22 16:00 95 20 105/60 98 12/28/22 14:00 102 H 20 109/64 94 L 12/28/22 13:00 107 H 16 109/87 94 L 12/28/22 12:00 110 H 20 98/60 94 L Intake and Output 12/28/22 12/29/22 12/29/22 22:59 06:59 14:59 Output Total 250 Balance -250 Output: Urine 250 Other: Voiding Method External Catheter # Voids 1 # Bowel Movements 1 2 Weight 82.1 kg PHYSICAL EXAM: VITAL SIGNS: As above GENERAL: Sitting up in bed, no acute distress, [place] HEENT: Normocephalic Conjunctivae normal. eyes normal. NECK: Supple, No JVD. No thyroid enlargement. No LNs CARDIOVASCULAR: S1, S2.irregular. No murmur RESPIRATION: Unlabored, essentially clear with bilateral bases diminished No rhonchi or crackles. No bronchial breathing. ABDOMEN: Soft, nondistended, nontender . No guarding. no masses palpable. No ascites, No hepatosplenomegaly.Bowel sounds heard. LEGS: Positive pitting edema PSYCHIATRY: Alert and oriented X2, mood and affect normal. NERVOUS SYSTEM: Cranial N 2-12 grossly normal. Skin: Warm and dry, no rash Results CBC & Chem 7: 12/29/22 08:05 12/29/22 08:05 Labs: Abnormal Lab Results - Last 24 Hours (Table) 12/28/22 12/28/22 12/29/22 Range/Units 12:02 14:30 06:01 Hgb (11.4-16.0) gm/dL MCHC (31.0-37.0) g/dL RDW (11.5-15.5) % PT 13.1 H (10.0-12.5) sec INR 1.2 H (<1.2) Potassium (3.5-5.1) mmol/L Chloride (98-107) mmol/L Carbon Dioxide (22-30) mmol/L BUN (7-17) mg/dL Glucose (74-99) mg/dL POC Glucose (mg/dL) 169 H (70-110) mg/dL Troponin I 0.035 H* (0.000-0.034) ng/mL 12/29/22 12/29/22 12/29/22 Range/Units 08:05 08:05 08:05 Hgb 10.9 L (11.4-16.0) gm/dL MCHC 30.4 L (31.0-37.0) g/dL RDW 19.5 H (11.5-15.5) % PT (10.0-12.5) sec INR (<1.2) Potassium 2.6 L* (3.5-5.1) mmol/L Chloride 95 L (98-107) mmol/L Carbon Dioxide 32 H (22-30) mmol/L BUN 39 H (7-17) mg/dL Glucose 143 H (74-99) mg/dL POC Glucose (mg/dL) (70-110) mg/dL Troponin I 0.062 H* (0.000-0.034) ng/mL Thrombosis Risk Factor Assmnt - Choose All That Apply Any of the Below Risk Factors Present?: Yes Each Factor Represents 1 point: Obesity (BMI >25) Other Risk Factors: Yes Each Risk Factor Represents 3 Points: Age 75 years or older Thrombosis Risk Factor Assessment Total Risk Factor Score: 4 Thrombosis Risk Factor Assessment Level: Moderate Risk Assessment and Plan Assessment: Dyspnea, secondary to bilateral pleural effusions, right greater than left Metabolic encephalopathy secondary to the above Reported Weight loss of 24 pounds within the last 10 days secondary to diuresing Fall, possibly related to the above Hypokalemia secondary to diuresing Chronic systolic CHF, EF 43%, proBNP 857 Elevated troponins, not suggestive of ACS as per cardiology Chronic atrial fibrillation, not on anticoagulation secondary to history of rectal bleeding CAD, history of [place] Obesity, BMI 29 Plan: Continue on current medication regime ,monitoring and symptomatic treatment. Potassium supplementation in progress. Magnesium level ordered. Oral diuretics /Cardiology following. Pulmonary and interventional radiology consulted, potential thoracentesis. PT OT consulted. The impression and plan of care has been dictated as directed. : I performed a history and examination of this patient, discussed the same with the dictator. I agree with the dictator's note ,documented as a scribe. Any additional findings or plans will be noted.
[2022-12-29 11:37] LABS: Glucose,Whole Blood 185 mg/dL (70-110)
--- NOTE | 2022-12-29 11:50 | P.PN ---
Subjective HISTORY OF PRESENT ILLNESS: This is a 87-year-old female with a past medical history significant for acute coronary syndrome secondary to embolization, cardiomyopathy, hypertension, hyperlipidemia, permanent atrial fibrillation, and congestive heart failure. Patient follows in the office with Dr. Paredes. We have been asked to see the patient in consultation for congestive heart failure. Patient examined at the bedside. Patient is hard of hearing. Patient's feeling members are at the bedside. Patient was brought to the hospital for worsening shortness of breath over the past few days. She denies having any chest pain or pressure. The patient's family states she has lost almost 20 pounds in the past few weeks. It is noted that she was seen by Dr. Paredes 12/07/2022. Apparently patient was not responding well to Lasix and she was changed to Demadex. * EKG reveals atrial fibrillation with mild RVR * Chest xray cardiomegaly, pulmonary vascular congestion and bilateral pleural effusions. * Laboratory data: WBC 7.4. Hemoglobin 10.6. Platelet count 239. Sodium 138. Potassium 2.3. BUN 39. Creatinine 0.78. Troponin 0.044. ProBNP 857. * Current home cardiac medications include Demadex 20 mg daily and metoprolol succinate 25 mg at night * Most recent echocardiogram obtained in October 2022 at [facility] revealing ejection fraction 43% with global hypokinesia, trace aortic valve regurgitation, moderate tricuspid valve regurgitation and mild pulmonary hypertension * Cardiac catheterization history: July 2022 at [facility] revealing acute coronary syndrome due to coronary embolism of the distal OM with 95% stenosis status post coronary thrombectomy with 0% residual stenosis. No evid ence of underlying atherosclerotic coronary disease. 12/29/2022 Patient examined this morning at the bedside. Patient currently denies chest pain or pressure. She denies shortness of breath. She remains on oral diuretics. She has been evaluated by pulmonary this morning with no plans for thoracentesis. PHYSICAL EXAM: VITAL SIGNS: Reviewed. GENERAL: Well-developed in no acute distress. HEENT: Head is normocephalic. Pupils are equal, round. Sclerae anicteric. Mucous membranes of the mouth are moist. Neck supple. No JVD or thyromegaly LUNGS: Respirations even and unlabored. Lungs essentially clear to auscultation bilaterally. HEART: Irregular rate and rhythm. S1 and S2 heard. ABDOMEN: Soft. Nondistended. Nontender. EXTREMITIES: Normal range of motion. No clubbing or cyanosis. Peripheral pulses intact. Minimal bilateral lower extremity edema NEUROLOGIC: Awake and alert. Oriented x 3. ASSESSMENT: Shortness of breath Bilateral pleural effusions, right greater than left Abnormal troponins, flat, not suggestive of acute coronary syndrome Chronic heart failure with reduced ejection fraction, 43%, proBNP 857 History of ACS due to embolization of distal OM with 95% stenosis with thrombectomy Permanent atrial fibrillation, not on anticoagulation on an outpatient basis secondary to history of rectal bleeding per family Hypertension Hyperlipidemia Hypokalemia PLAN: No need to repeat echocardiogram as this was performed in October 2022 Resume home cardiac medications Continue oral diuretics Pulmonary following. We will defer thoracentesis to their service. Further recommendations pending patient course Nurse practitioner note has been reviewed by physician. Signing provider agrees with the documented findings, assessment, and plan of care. Objective - Vital Signs Vital signs: Vital Signs Temp 98.3 F 12/29/22 04:29 Pulse 104 H 12/29/22 04:29 Resp 19 12/29/22 04:29 BP 114/83 12/29/22 04:29 Pulse Ox 92 L 12/29/22 04:29 FiO2 Intake & Output 12/28/22 12/29/22 12/29/22 18:59 06:59 18:59 Output Total 1999 Balance -1999 Weight 82.1 kg Output: Urine 1999 Other: Voiding Method External Catheter # Voids 1 # Bowel Movements 1 - Labs CBC & Chem 7: 12/29/22 08:05 12/29/22 08:05 Labs: Abnormal Lab Results - Last 24 Hours (Table) 12/28/22 12/28/22 12/28/22 Range/Units 08:46 08:46 08:46 Hgb 10.6 L (11.4-16.0) gm/dL MCHC 30.3 L (31.0-37.0) g/dL RDW 19.5 H (11.5-15.5) % PT (10.0-12.5) sec INR (<1.2) Potassium 2.3 L* (3.5-5.1) mmol/L Chloride 93 L (98-107) mmol/L Carbon Dioxide 35 H (22-30) mmol/L BUN 39 H (7-17) mg/dL Glucose 175 H (74-99) mg/dL POC Glucose (mg/dL) (70-110) mg/dL Total Bilirubin 1.6 H (0.2-1.3) mg/dL Troponin I (0.000-0.034) ng/mL Total Protein 6.2 L (6.3-8.2) g/dL Albumin 3.1 L (3.5-5.0) g/dL Urine Protein Trace H (Negative) 12/28/22 12/28/22 12/28/22 Range/Units 08:46 12:02 14:30 Hgb (11.4-16.0) gm/dL MCHC (31.0-37.0) g/dL RDW (11.5-15.5) % PT 13.1 H (10.0-12.5) sec INR 1.2 H (<1.2) Potassium (3.5-5.1) mmol/L Chloride (98-107) mmol/L Carbon Dioxide (22-30) mmol/L BUN (7-17) mg/dL Glucose (74-99) mg/dL POC Glucose (mg/dL) (70-110) mg/dL Total Bilirubin (0.2-1.3) mg/dL Troponin I 0.044 H* 0.035 H* (0.000-0.034) ng/mL Total Protein (6.3-8.2) g/dL Albumin (3.5-5.0) g/dL Urine Protein (Negative) 12/29/22 Range/Units 06:01 Hgb (11.4-16.0) gm/dL MCHC (31.0-37.0) g/dL RDW (11.5-15.5) % PT (10.0-12.5) sec INR (<1.2) Potassium (3.5-5.1) mmol/L Chloride (98-107) mmol/L Carbon Dioxide (22-30) mmol/L BUN (7-17) mg/dL Glucose (74-99) mg/dL POC Glucose (mg/dL) 169 H (70-110) mg/dL Total Bilirubin (0.2-1.3) mg/dL Troponin I (0.000-0.034) ng/mL Total Protein (6.3-8.2) g/dL Albumin (3.5-5.0) g/dL Urine Protein (Negative)
[2022-12-29] MEDS: POTASSIUM CHLORIDE ER 20 MEQ TAB.ER PO SCH ×3 (12:07→17:01)
--- NOTE | 2022-12-29 14:13 | P.CNPUL ---
History of Present Illness Consult date: 12/29/22 Requesting physician: Akin Hopper Reason for consult: pleural effusion Chief complaint: Increased confusion and weakness History of present illness: This is an 87-year-old female with known history of chronic atrial fibrillation, hypertension, dyslipidemia, cardiomyopathy, LV dysfunction, congestive heart failure, patient has been following up with Dr. Owens on outpatient basis, and since then 12/07/22, patient has been Receiving treatment for congestive heart failure with multiple diuretics including Demadex and metolazone. Patient has been diuresing and responding well to diuretics and she lost basically over 24 pounds in a period of 10 days. However the patient has been developing increased confusion and weakness,, although the shortness of breath has not been a major issue patient was brought into the ER, chest x-ray showed bilateral pleural effusions, right more so than left. Patient was also noted to have significant fluid retention in her lower extremities. Patient was admitted, and this consult was initiated. Patient is not on any anticoagulation therapy, I evaluated the patient with daughter at bedside, and recommended that we continue diuretics for now, will consider thoracentesis of the patient's pleural effusion does not improve after diuresis. Reviewed the results of the ultrasound, thoracentesis could be performed, but considering the patient's history and considering her congestive heart failure history I would recommend medical therapy for now and if that fails would definitely recommend thoracentesis. Review of Systems CONSTITUTIONAL: Negative. Except for generalized weakness HEENT: Negative CARDIOVASCULAR: As noted in HPI RESPIRATORY: No shortness of breath no chest pain no cough no wheezing GASTROINTESTINAL: Negative. HEMATOLOGIC: Negative GENITOURINARY: Negative SKIN: No rash NEUROLOGIC : Worsening confusion according to daughter. Past Medical History Past Medical History: Atrial Flutter, Hyperlipidemia, Hypertension, Myocardial Infarction (CT) Last Myocardial Infarction Date:: august 13, 2022 History of Any Multi-Drug Resistant Organisms: None Reported Past Surgical History: Adenoidectomy, Heart Catheterization, Tonsillectomy Past Anesthesia/Blood Transfusion Reactions: No Reported Reaction Past Psychological History: No Psychological Hx Reported Smoking Status: Never smoker Past Alcohol Use History: None Reported Past Drug Use History: None Reported Medications and Allergies Home Medications Medication Instructions Recorded Confirmed Type B-Core 2 tab PO TID 12/28/22 12/28/22 History Cardio Plus 2 cap PO TID 12/28/22 12/28/22 History Chlorophyll 1 tab PO TID 12/28/22 12/28/22 History L.acidoph,Paracasei, B.lactis 1 cap PO DAILY 12/28/22 12/28/22 History [Probiotic] Lifeblood 2 tab PO W/LUNCH 12/28/22 12/28/22 History Metoprolol Succinate (ER) [Toprol 25 mg PO HS 12/28/22 12/28/22 History Xl] [place]-3 3 cap PO BID 12/28/22 12/28/22 History Potassium Chloride [Klor-Con M20] 20 meq PO BID@0600,1200 12/28/22 12/28/22 History Prot 1 dose PO TID 12/28/22 12/28/22 History Renafood 3 tab PO BID 12/28/22 12/28/22 History Therafood 2 tab PO W/LUNCH 12/28/22 12/28/22 History Torsemide [Demadex] 20 mg PO DAILY 12/28/22 12/28/22 History Vitamin C 1 tab PO DAILY@1900 12/28/22 12/28/22 History metOLazone 2.5 mg PO Q2D 12/28/22 12/28/22 History Allergies Allergy/AdvReac Type Severity Reaction Status Date / Time codeine Allergy Unknown Verified 12/28/22 12:14 ticagrelor [From Brilinta] AdvReac ASHISH Verified 12/28/22 12:15 Physical Exam Vitals: Vital Signs Temp Pulse Pulse Resp BP BP Pulse Ox 12/29/22 12:06 101 H 18 96/61 94 L 12/29/22 09:09 97.5 F L 79 16 103/64 96 12/29/22 04:29 98.3 F 104 H 19 114/83 92 L 12/28/22 23:08 109 H 18 95/64 93 L 12/28/22 20:47 97.9 F 100 18 106/71 92 L 12/28/22 20:30 114 H 18 98/70 95 12/28/22 19:36 141 H 18 103/74 95 12/28/22 17:00 114 H 20 104/38 98 12/28/22 16:00 95 20 105/60 98 Intake and Output 12/28/22 12/29/22 12/29/22 22:59 06:59 14:59 Output Total 250 Balance -250 Output: Urine 250 Other: Voiding Method External Catheter External Catheter # Voids 1 1 # Bowel Movements 1 1 Weight 82.1 kg Physical Exam: Revealed 87-year-old female in no distress on room air, O2 sats is 94% Head: Atraumatic, normocephalic. HEENT:[Neck is supple.] [No neck masses.] [No thyromegaly.] [No JVD.] Chest: [Clear throughout, no crackles, no rhonchi, no wheezes.] Cardiac Exam: Irregular irregular rhythm. Normal S1 and S2, 2/6 systolic murmur thought the precordium Abdomen: [Soft, nontender, no megaly, no rebound, no guarding, normal bowel sounds.] Extremities: [No clubbing, no edema, no cyanosis.] Neurological Exam: Patient is awake, alert oriented 3. No gross focal neurologic deficit Psychiatric: Normal mood, affect and normal mental status examination Results - Laboratory Findings CBC and BMP: 12/29/22 08:05 12/29/22 08:05 PT/INR, D-dimer PT 13.1 sec (10.0-12.5) H 12/28/22 14:30 INR 1.2 (<1.2) H 12/28/22 14:30 Abnormal lab findings: Abnormal Labs 12/28/22 12/28/22 12/28/22 08:46 08:46 08:46 Hgb 10.6 L MCHC 30.3 L RDW 19.5 H PT INR Potassium 2.3 L* Chloride 93 L Carbon Dioxide 35 H BUN 39 H Glucose 175 H POC Glucose (mg/dL) Total Bilirubin 1.6 H Troponin I Total Protein 6.2 L Albumin 3.1 L Urine Protein Trace H 12/28/22 12/28/22 12/28/22 08:46 12:02 14:30 Hgb MCHC RDW PT 13.1 H INR 1.2 H Potassium Chloride Carbon Dioxide BUN Glucose POC Glucose (mg/dL) Total Bilirubin Troponin I 0.044 H* 0.035 H* Total Protein Albumin Urine Protein 12/29/22 12/29/22 12/29/22 06:01 08:05 08:05 Hgb 10.9 L MCHC 30.4 L RDW 19.5 H PT INR Potassium Chloride Carbon Dioxide BUN Glucose POC Glucose (mg/dL) 169 H Total Bilirubin Troponin I 0.062 H* Total Protein Albumin Urine Protein 12/29/22 12/29/22 08:05 11:36 Hgb MCHC RDW PT INR Potassium 2.6 L* Chloride 95 L Carbon Dioxide 32 H BUN 39 H Glucose 143 H POC Glucose (mg/dL) 185 H Total Bilirubin Troponin I Total Protein Albumin Urine Protein - Diagnostic Findings Chest x-ray: image reviewed (As noted in HPI) Assessment and Plan Assessment: Impression: Acute on chronic systolic congestive heart failure with bilateral pleural effusions Chronic systolic congestive heart failure Abnormal troponins, being addressed by cardiology Chronic atrial fibrillation, not on anticoagulation therapy because of previous history of rectal bleeding Benign essential hypertension Dyslipidemia Electrolytes imbalance with hypokalemia Possible metabolic encephalopathy with increased confusion at home according to daughter. Recommendation: Continue present treatment plan Continue Demadex and metolazone Continue to monitor and correct electrolytes accordingly Resume home meds/beta blockers for her atrial fibrillation We will reassess in the next 24 hours, if no improvement in her pleural effusion could consider thoracentesis/right sided thoracentesis. We will continue to follow Time with Patient: Greater than 30
[2022-12-29] MEDS: TRIAMCINOLONE 0.1% CREAM 80 GM TUBE TOPICAL SCH ×2 (15:14→21:22)
[2022-12-29 16:49] LABS: Glucose,Whole Blood 169 mg/dL (70-110)
[2022-12-29 20:18] LABS: Glucose,Whole Blood 154 mg/dL (70-110)
[2022-12-29] MEDS: METOPROLOL SUCCINATE (ER) 25 MG TAB.ER.24H PO SCH (21:21)
[2022-12-30 06:07] LABS: Glucose,Whole Blood 163 mg/dL (70-110)
--- NOTE | 2022-12-30 07:22 | XR ---
EXAMINATION TYPE: XR chest 1V portable DATE OF EXAM: 12/30/2022 7:17 AM COMPARISON: Chest radiographs from 12/28/2022 TECHNIQUE: XR chest 1V portable Portable AP radiograph of the chest. CLINICAL INDICATION:Female, 87 years old with history of CHF; FINDINGS: Lungs/Pleura: Moderate size right pleural effusion and small left pleural effusion redemonstrated. No pneumothorax. Right basilar atelectasis/consolidation. Pulmonary vascularity: Decreased pulmonary vascular congestion. Heart/mediastinum: Cardiomediastinal silhouette is enlarged and stable. Musculoskeletal: No acute osseous pathology. IMPRESSION: Similar moderate right and small left pleural effusions with right basilar atelectasis/consolidation. Decreased pulmonary vascular congestion from prior exam.
[2022-12-30 09:06] LABS: African American GFR (CKD) 71 (>60 ml/min/1.73 sqM); Anion Gap 10 mmol/L; Blood Urea Nitrogen 46 mg/dL (7-17); Calcium 8.8 mg/dL (8.4-10.2); Carbon Dioxide 36 mmol/L (22-30); Chloride 95 mmol/L (98-107); Glucose 176 mg/dL (74-99); Non-African American GFR(CKD) 61 (>60 ml/min/1.73 sqM); Potassium 2.8 mmol/L (3.5-5.1); Sodium 141 mmol/L (137-145)
[2022-12-30] MEDS: TRIAMCINOLONE 0.1% CREAM 80 GM TUBE TOPICAL SCH ×3 (09:56→19:41)
[2022-12-30] MEDS: POTASSIUM BICARBONATE/CIT AC 20 MEQ TABLET.EFF NG-TUBE SCH ×3 (09:56→14:28)
[2022-12-30] MEDS: TORSEMIDE 20 MG TAB PO SCH (09:56)
[2022-12-30 11:24] LABS: Glucose,Whole Blood 202 mg/dL (70-110)
[2022-12-30] MEDS: LACTOBACILLUS ACIDOPHILUS/PECT 1 EACH CAPSULE PO SCH (11:55)
[2022-12-30] MEDS: PSYLLIUM HUSK 100% 6 GM PACKET PO SCH (11:55)
[2022-12-30] MEDS: ACETAMINOPHEN TAB 325 MG TAB PO PRN (11:55)
--- NOTE | 2022-12-30 12:37 | P.PN ---
Subjective HISTORY OF PRESENT ILLNESS: This is a 87-year-old female with a past medical history significant for acute coronary syndrome secondary to embolization, cardiomyopathy, hypertension, hyperlipidemia, permanent atrial fibrillation, and congestive heart failure. Patient follows in the office with Dr. Paredes. We have been asked to see the patient in consultation for congestive heart failure. Patient examined at the bedside. Patient is hard of hearing. Patient's feeling members are at the bedside. Patient was brought to the hospital for worsening shortness of breath over the past few days. She denies having any chest pain or pressure. The patient's family states she has lost almost 20 pounds in the past few weeks. It is noted that she was seen by Dr. Paredes 12/07/2022. Apparently patient was not responding well to Lasix and she was changed to Demadex. * EKG reveals atrial fibrillation with mild RVR * Chest xray cardiomegaly, pulmonary vascular congestion and bilateral pleural effusions. * Laboratory data: WBC 7.4. Hemoglobin 10.6. Platelet count 239. Sodium 138. Potassium 2.3. BUN 39. Creatinine 0.78. Troponin 0.044. ProBNP 857. * Current home cardiac medications include Demadex 20 mg daily and metoprolol succinate 25 mg at night * Most recent echocardiogram obtained in October 2022 at [facility] revealing ejection fraction 43% with global hypokinesia, trace aortic valve regurgitation, moderate tricuspid valve regurgitation and mild pulmonary hypertension * Cardiac catheterization history: July 2022 at [facility] revealing acute coronary syndrome due to coronary embolism of the distal OM with 95% stenosis status post coronary thrombectomy with 0% residual stenosis. No evid ence of underlying atherosclerotic coronary disease. 12/29/2022 Patient examined this morning at the bedside. Patient currently denies chest pain or pressure. She denies shortness of breath. She remains on oral diuretics. She has been evaluated by pulmonary this morning with no plans for thoracentesis. 12/30/2022 Patient examined this morning at the bedside. Patient's family is present. Patient currently denies any chest pain or pressure. She denies any shortness of breath. She is laying flat in bed and appears comfortable. Patient was offered thoracentesis today by pulmonary services in which patient and family declined. PHYSICAL EXAM: VITAL SIGNS: Reviewed. GENERAL: Well-developed in no acute distress. HEENT: Head is normocephalic. Pupils are equal, round. Sclerae anicteric. Mucous membranes of the mouth are moist. Neck supple. No JVD or thyromegaly LUNGS: Respirations even and unlabored. Lungs essentially clear to auscultation bilaterally. HEART: Irregular rate and rhythm. S1 and S2 heard. ABDOMEN: Soft. Nondistended. Nontender. EXTREMITIES: Normal range of motion. No clubbing or cyanosis. Peripheral pulses intact. Minimal bilateral lower extremity edema NEUROLOGIC: Awake and alert. Oriented x 3. ASSESSMENT: Shortness of breath Bilateral pleural effusions, right greater than left Abnormal troponins, flat, not suggestive of acute coronary syndrome Chronic heart failure with reduced ejection fraction, 43%, proBNP 857 History of ACS due to embolization of distal OM with 95% stenosis with throm bectomy Permanent atrial fibrillation, not on anticoagulation on an outpatient basis secondary to history of rectal bleeding per family Hypertension Hyperlipidemia Hypokalemia PLAN: Patient was offered thoracentesis today by pulmonary services in which patient and family declined Continue current cardiac medications Patient is currently stable from a cardiac standpoint with no further inpatient recommendations We will sign off. Please reconsult if needed. Nurse practitioner note has been reviewed by physician. Signing provider agrees with the documented findings, assessment, and plan of care. Objective - Vital Signs Vital signs: Vital Signs Temp 98.3 F 12/30/22 09:45 Pulse 101 H 12/30/22 09:45 Resp 18 12/30/22 09:45 BP 123/88 12/30/22 09:45 Pulse Ox 97 12/30/22 09:45 FiO2 Intake & Output 12/29/22 12/30/22 12/30/22 18:59 06:59 18:59 Intake Total 0 Output Total 250 Balance -250 0 Intake: Oral 0 Output: Urine 250 Other: Voiding Method External Catheter Diaper Diaper Incontinent Incontinent # Voids 1 1 # Bowel Movements 1 1 - Labs CBC & Chem 7: 12/29/22 08:05 12/30/22 08:19 Labs: Abnormal Lab Results - Last 24 Hours (Table) 12/29/22 12/29/22 12/30/22 Range/Units 16:47 20:15 06:03 Potassium (3.5-5.1) mmol/L Chloride (98-107) mmol/L Carbon Dioxide (22-30) mmol/L BUN (7-17) mg/dL Glucose (74-99) mg/dL POC Glucose (mg/dL) 169 H 154 H 163 H (70-110) mg/dL 12/30/22 12/30/22 Range/Units 08:19 11:23 Potassium 2.8 L (3.5-5.1) mmol/L Chloride 95 L (98-107) mmol/L Carbon Dioxide 36 H (22-30) mmol/L BUN 46 H (7-17) mg/dL Glucose 176 H (74-99) mg/dL POC Glucose (mg/dL) 202 H (70-110) mg/dL
--- NOTE | 2022-12-30 12:56 | CDI ---
Documentation Clarification Form Date: From: Odalys Anthony Phone: [phone] Admit Date: 12/28/2022 11:27:00 AM Patient Name: Jo Ann Skinner Visit Number: [id number] Discharge Date: ATTENTION: The Clinical Documentation Specialists (CDI) and [facility] Coding Staff appreciate your assistance in clarifying documentation. Please respond to the clarification below the line at the bottom and electronically sign. The CDI & [facility] Coding staff will review the response and follow-up if needed. Please note: Queries are made part of the Legal Health Record. If you have any questions, please contact the author of this message via ITS. Dr. Akin Hopper Your patient has elevated troponin levels. Please clarify if there is an additional diagnosis and/or clinical significance related to this value. Patient history/risk factors: "87-year-old female with past medical history significant for permanent atrial fibrillation, atrial flutter, hypertension, hyperlipidemia, CAD, NM, cardiomyopathy, CHF, presented to the ER with worsening dyspnea." - Per Medical H&P on 12/29 Clinical indicators: "Dyspnea, secondary to bilateral pleural effusions" "Abnormal troponins, flat, not suggestive of acute coronary syndrome" - Per Cardiology Note on 12/29 "Acute on chronic systolic congestive heart failure with bilateral pleural effusions" - Per Pulmonology Note on 12/29 Troponin: 12/28 - 0.044, 0.035, 12/29 - 0.062 Treatment: Per Cardiology Note on 12/29 "No need to repeat echocardiogram as this was performed in October 2022 Resume home cardiac medications Continue oral diuretics" "Continue Demadex and metolazone" - Per Pulmonology Note on 12/29 Is there an additional diagnosis and/or clinical significance related to the above lab result/information: [ X ] 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
--- NOTE | 2022-12-30 13:42 | P.PN ---
Subjective Progress Note Date: 12/30/22 Principal diagnosis: Acute on chronic systolic congestive heart failure with bilateral pleural effusions This is an 87-year-old female with known history of chronic atrial fibrillation, hypertension, dyslipidemia, cardiomyopathy, LV dysfunction, congestive heart failure, patient has been following up with Dr. Owens on outpatient basis, and since then 12/07/22, patient has been Receiving treatment for congestive heart failure with multiple diuretics including Demadex and metolazone. Patient has been diuresing and responding well to diuretics and she lost basically over 24 pounds in a period of 10 days. However the patient has been developing increased confusion and weakness,, although the shortness of breath has not been a major issue patient was brought into the ER, chest x-ray showed bilateral pleural effusions, right more so than left. Patient was also noted to have significant fluid retention in her lower extremities. Patient was admitted, and this consult was initiated. Patient is not on any anticoagulation therapy, I evaluated the patient with daughter at bedside, and recommended that we continue diuretics for now, will consider thoracentesis of the patient's pleural effusion does not improve after diuresis. Reviewed the results of the ultrasound, thoracentesis could be performed, but considering the patient's history and considering her congestive heart failure history I would recommend medical therapy for now and if that fails would definitely recommend thoracentesis. Patient was reevaluated today on 12/30/2022, patient is resting in bed, O2 sats is 95% on room air, multiple family members at bedside. Reviewed chest x-ray findings with the family members and explained to them that the patient continues to have significant right-sided pleural effusion, and would recommend thoracentesis if family is agreeable. Apparently family seems to be more inclined to consider comfort care measures, this has not been fully decided yet, but they seem to be inclined to consider that trial. Family members Prefer not to have thoracentesis for the time being, prefer to continue present medical management for now, and again they seem to be more inclined to seriously consider comfort care on this patient. Not to mention the patient is not in any distress at this point, she is on room air, and O2 sats is 95%. Labs today were reviewed, creatinine is 0.86 potassium is 2.8 Objective - Vital Signs Vital signs: Vital Signs Temp 98.3 F 12/30/22 09:45 Pulse 100 12/30/22 12:00 Resp 17 12/30/22 12:00 BP 131/67 12/30/22 12:00 Pulse Ox 95 12/30/22 12:00 FiO2 Intake & Output 12/29/22 12/30/22 12/30/22 18:59 06:59 18:59 Intake Total 0 Output Total 250 Balance -250 0 Intake: Oral 0 Output: Urine 250 Other: Voiding Method External Catheter Diaper Diaper Incontinent Incontinent # Voids 1 1 # Bowel Movements 1 1 - Exam Physical Exam: Revealed 87-year-old female in no distress on room air, O2 sats is 94% Head: Atraumatic, normocephalic. HEENT:[Neck is supple.] [No neck masses.] [No thyromegaly.] [No JVD.] Chest: [Clear throughout, no crackles, no rhonchi, no wheezes.] Cardiac Exam: Irregular irregular rhythm. Normal S1 and S2, 2/6 systolic murmur thought the precordium Abdomen: [Soft, nontender, no megaly, no rebound, no guarding, normal bowel sounds.] Extremities: [No clubbing, 2+ bipedal edema, no cyanosis.] Neurological Exam: Patient is awake, alert oriented 3. No gross focal neurologic deficit Psychiatric: Normal mood, affect and normal mental status examination - Labs CBC & Chem 7: 12/29/22 08:05 12/30/22 08:19 Labs: Abnormal Lab Results - Last 24 Hours (Table) 12/29/22 12/29/22 12/30/22 Range/Units 16:47 20:15 06:03 Potassium (3.5-5.1) mmol/L Chloride (98-107) mmol/L Carbon Dioxide (22-30) mmol/L BUN (7-17) mg/dL Glucose (74-99) mg/dL POC Glucose (mg/dL) 169 H 154 H 163 H (70-110) mg/dL 12/30/22 12/30/22 Range/Units 08:19 11:23 Potassium 2.8 L (3.5-5.1) mmol/L Chloride 95 L (98-107) mmol/L Carbon Dioxide 36 H (22-30) mmol/L BUN 46 H (7-17) mg/dL Glucose 176 H (74-99) mg/dL POC Glucose (mg/dL) 202 H (70-110) mg/dL Assessment and Plan Assessment: Impression: Acute on chronic systolic congestive heart failure with bilateral pleural effusions Chronic systolic congestive heart failure Abnormal troponins, being addressed by cardiology Chronic atrial fibrillation, not on anticoagulation therapy because of previous history of rectal bleeding Benign essential hypertension Dyslipidemia Electrolytes imbalance with hypokalemia Possible metabolic encephalopathy with increased confusion at home according to daughter. Recommendation: Family is declining thoracentesis at this point. Continue present treatment plan Continue Demadex and metolazone Continue to monitor and correct electrolytes accordingly Resume home meds/beta blockers for her atrial fibrillation Family is considering possibly comfort care measures We will continue to follow Time with Patient: Less than 30
[2022-12-30] MEDS: metOLazone 2.5 MG TAB PO SCH (14:28)
[2022-12-30 16:24] LABS: Glucose,Whole Blood 197 mg/dL (70-110)
[2022-12-30] MEDS: METOPROLOL SUCCINATE (ER) 25 MG TAB.ER.24H PO SCH (19:41)
[2022-12-30 20:48] LABS: Glucose,Whole Blood 232 mg/dL (70-110)
[2022-12-31 06:11] LABS: Glucose,Whole Blood 173 mg/dL (70-110)
[2022-12-31] MEDS: PSYLLIUM HUSK 100% 6 GM PACKET PO SCH (09:38)
[2022-12-31] MEDS: TORSEMIDE 20 MG TAB PO SCH (09:38)
[2022-12-31] MEDS: TRIAMCINOLONE 0.1% CREAM 80 GM TUBE TOPICAL SCH ×3 (09:38→20:51)
[2022-12-31] MEDS: LACTOBACILLUS ACIDOPHILUS/PECT 1 EACH CAPSULE PO SCH (09:38)
[2022-12-31] MEDS ORDERED: POTASSIUM CHLORIDE 20 MEQ in WATER FOR INJECTION 1 100ML.BAG IVPB ONE (11:00)
[2022-12-31 11:41] LABS: Glucose,Whole Blood 186 mg/dL (70-110)
[2022-12-31] MEDS: POTASSIUM CHLORIDE ER 20 MEQ TAB.ER PO SCH ×4 (11:45→20:11)
[2022-12-31] MEDS: ACETAMINOPHEN TAB 325 MG TAB PO PRN (12:09)
--- NOTE | 2022-12-31 12:16 | P.PN ---
Subjective Progress Note Date: 12/30/22 H&P Date: 12/29/22 Chief Complaint: Dyspnea, bilateral lower extremity edema This is a 87-year-old female with past medical history significant for permanent atrial fibrillation, atrial flutter, hypertension, hyperlipidemia, CAD, [place], cardiomyopathy, CHF, presented to the ER with worsening dyspnea. Family members at bedside report patient had shortness of breath for the last month.Followed up last with Dr. Owens on , at which time ,diuretics were changed over to torsemide and placed on metolazone every 2 days. Patient lost 24 pounds over 10 days, developed increased confusion accompanied by increased weakness. Family reports patient baseline is alert and oriented 3, writes letters and is usually active. On Wednesday night patient had increased confusion, alert only to her name and tripped on a heavy stationary rubber rug. Troponins serially 0.044, 0.035, 0.062.EKG report atrial fibrillation with heart rates low 100s, further review as per cardiology. Potassium 2.3 on admission, currently 2.6, receiving further supplementation. O2 sat in the low 90s on room air. BNP 857, chest x-ray reporting cardiomegaly, pulmonary vascular congestion and bilateral pleural effusions. Ultrasound of the chest reported moderate right pleural effusion, marked for potential thoracentesis, small left pleural effusion. INR 1.2. Afebrile, normal WBC. Hemoglobin 10.9, platelets 210. Sodium 139, potassium 2.6, bicarb 32, BUN 39, creatinine 0.8. Blood sugars controlled. Denies chest pain, palpitations, maintaining O2 sats in the mid to high 90s on room air. 12/30/22 CXR reported similar moderate right and small pleural effusions with right basilar atelectasis/consolidation, decreased pulmonary vascular congestion from prior exam. Pulmonary consult in place. Sitting up in bed, feels better, eating breakfast. Denies chest pain, palpitations or shortness of breath. Potential thoracentesis discussed, pending pulmonary recommendations. Objective - Vital Signs Vital signs: Vital Signs Temp 97 F L 12/30/22 16:19 Pulse 101 H 12/30/22 16:19 Resp 18 12/30/22 16:19 BP 95/61 12/30/22 16:19 Pulse Ox 95 12/30/22 16:19 FiO2 Intake & Output 12/29/22 12/30/22 12/30/22 18:59 06:59 18:59 Intake Total 0 Output Total 250 Balance -250 0 Intake: Oral 0 Output: Urine 250 Other: Voiding Method External Catheter Diaper Diaper Incontinent Incontinent # Voids 1 1 # Bowel Movements 1 1 - Exam PHYSICAL EXAM: VITAL SIGNS: As above GENERAL: Sitting up in bed, no acute distress, [place] HEENT: Normocephalic Conjunctivae normal. eyes normal. NECK: Supple, No JVD. CARDIOVASCULAR: S1, S2.irregular. No murmur RESPIRATION: Unlabored, clear with bilateral bases diminished. ABDOMEN: Soft, nondistended, nontender . No guarding. +BS LEGS: Minimal edema. PSYCHIATRY: Alert and oriented X3, mood and affect normal. NERVOUS SYSTEM: Cranial N 2-12 grossly normal. Skin: Warm and dry, no rash - Labs CBC & Chem 7: 12/29/22 08:05 12/31/22 09:57 Labs: Abnormal Lab Results - Last 24 Hours (Table) 12/29/22 12/29/22 12/30/22 Range/Units 16:47 20:15 06:03 Potassium (3.5-5.1) mmol/L Chloride (98-107) mmol/L Carbon Dioxide (22-30) mmol/L BUN (7-17) mg/dL Glucose (74-99) mg/dL POC Glucose (mg/dL) 169 H 154 H 163 H (70-110) mg/dL 12/30/22 12/30/22 12/30/22 Range/Units 08:19 11: 16:20 Potassium 2.8 L (3.5-5.1) mmol/L Chloride 95 L (98-107) mmol/L Carbon Dioxide 36 H (22-30) mmol/L BUN 46 H (7-17) mg/dL Glucose 176 H (74-99) mg/dL POC Glucose (mg/dL) 202 H 197 H (70-110) mg/dL Assessment and Plan Assessment: Dyspnea, secondary to bilateral pleural effusions, right greater than left. Metabolic encephalopathy secondary to the above Reported Weight loss of 24 pounds within the last 10 days secondary to diuresing Fall, possibly related to the above Hypokalemia secondary to diuresing Chronic systolic CHF, EF 43%, proBNP 857 Elevated troponins, not suggestive of ACS as per cardiology Chronic atrial fibrillation, not on anticoagulation secondary to history of rectal bleeding CAD, history of [place] Obesity, BMI 29 Plan: Continue on current medication regime ,monitoring and symptomatic treatment. Repeat potassium level ordered .Oral diuretics. Potential thoracentesis, Pulmonary evaluation pending. The impression and plan of care has been dictated as directed. : I performed a history and examination of this patient, discussed the same with the dictator. I agree with the dictator's note ,documented as a scribe. Any additional findings or plans will be noted.
--- NOTE | 2022-12-31 12:28 | P.PN ---
Subjective Progress Note Date: 12/31/22 H&P Date: 12/29/22 Chief Complaint: Dyspnea, bilateral lower extremity edema This is a 87-year-old female with past medical history significant for permanent atrial fibrillation, atrial flutter, hypertension, hyperlipidemia, CAD, [place], cardiomyopathy, CHF, presented to the ER with worsening dyspnea. Family members at bedside report patient had shortness of breath for the last month.Followed up last with Dr. Owens on , at which time ,diuretics were changed over to torsemide and placed on metolazone every 2 days. Patient lost 24 pounds over 10 days, developed increased confusion accompanied by increased weakness. Family reports patient baseline is alert and oriented 3, writes letters and is usually active. On Wednesday night patient had increased confusion, alert only to her name and tripped on a heavy stationary rubber rug. Troponins serially 0.044, 0.035, 0.062.EKG report atrial fibrillation with heart rates low 100s, further review as per cardiology. Potassium 2.3 on admission, currently 2.6, receiving further supplementation. O2 sat in the low 90s on room air. BNP 857, chest x-ray reporting cardiomegaly, pulmonary vascular congestion and bilateral pleural effusions. Ultrasound of the chest reported moderate right pleural effusion, marked for potential thoracentesis, small left pleural effusion. INR 1.2. Afebrile, normal WBC. Hemoglobin 10.9, platelets 210. Sodium 139, potassium 2.6, bicarb 32, BUN 39, creatinine 0.8. Blood sugars controlled. Denies chest pain, palpitations, maintaining O2 sats in the mid to high 90s on room air. 12/30/22 CXR reported similar moderate right and small pleural effusions with right basilar atelectasis/consolidation, decreased pulmonary vascular congestion from prior exam. Pulmonary consult in place. Sitting up in bed, feels better, eating breakfast. Denies chest pain, palpitations or shortness of breath. Potential thoracentesis discussed, pending pulmonary recommendations. 12/31/2022 evaluated by pulmonary, thoracentesis recommended, family declined. Family had also considered home with hospice, but now leaning towards proceeding with subacute rehab. Maintained on Demadex and metolazone, potassium 2.5, IV and oral supplements initiated. Magnesium level ordered and pending. Maintaining O2 sats in the low 90s on room air currently. Denies chest pain, palpitations. Objective - Vital Signs Vital signs: Vital Signs Temp 98 F 12/31/22 07:55 Pulse 107 H 12/31/22 07:57 Resp 16 12/31/22 07:55 BP 92/58 12/31/22 07:55 Pulse Ox 92 L 12/31/22 07:55 FiO2 Intake & Output 12/30/22 12/31/22 12/31/22 18:59 06:59 18:59 Intake Total 0 Balance 0 Intake: Oral 0 Other: Voiding Method Diaper Diaper Diaper Incontinent Incontinent Incontinent # Voids 1 # Bowel Movements 1 4 - Exam PHYSICAL EXAM: VITAL SIGNS: As above GENERAL: Alert and oriented 2-3, Resting in bed, no acute distress, [place] HEENT: Normocephalic Conjunctivae normal. eyes normal. NECK: Supple, No JVD. CARDIOVASCULAR: S1, S2.irregular. No murmur RESPIRATION: Unlabored, clear with bilateral bases diminished. ABDOMEN: Soft, nondistended, nontender . No guarding. +BS LEGS: no edema. NERVOUS SYSTEM: Cranial N 2-12 grossly normal. Skin: Warm and dry, no rash - Labs CBC & Chem 7: 12/29/22 08:05 12/31/22 09:57 Labs: Abnormal Lab Results - Last 24 Hours (Table) 12/30/22 12/30/22 12/31/22 Range/Units 16:20 20:46 06:02 Potassium (3.5-5.1) mmol/L POC Glucose (mg/dL) 197 H 232 H 173 H (70-110) mg/dL 12/31/22 12/31/22 Range/Units 09:57 11:37 Potassium 2.5 L* (3.5-5.1) mmol/L POC Glucose (mg/dL) 186 H (70-110) mg/dL Assessment and Plan Assessment: Dyspnea, secondary to bilateral pleural effusions, right greater than left. Metabolic encephalopathy secondary to the above and electrolyte abnorm. Reported Weight loss of 24 pounds within the last 10 days secondary to diuresing Fall, possibly related to the above Hypokalemia secondary to diuresing Chronic systolic CHF, EF 43%, proBNP 857 Elevated troponins, not suggestive of ACS as per cardiology Chronic atrial fibrillation, not on anticoagulation secondary to history of rectal bleeding CAD, history of [place] Obesity, BMI 29 Hypokalemia Plan: Continue on current medication regime ,monitoring and symptomatic treatmen t. Potassium supplements ordered with repeat potassium level at 1600 .magnesium level ordered. Discharge planning in progress for subacute rehab potential for tomorrow pending stable electrolytes. Discussed with case management. The impression and plan of care has been dictated as directed. : I performed a history and examination of this patient, discussed the same with the dictator. I agree with the dictator's note ,documented as a scribe. Any additional findings or plans will be noted.
--- NOTE | 2022-12-31 14:08 | P.PN ---
Subjective Progress Note Date: 12/31/22 This is an 87-year-old female with known history of chronic atrial fibrillation, hypertension, dyslipidemia, cardiomyopathy, LV dysfunction, congestive heart failure, patient has been following up with Dr. Owens on outpatient basis, and since then 12/07/22, patient has been Receiving treatment for congestive heart failure with multiple diuretics including Demadex and metolazone. Patient has been diuresing and responding well to diuretics and she lost basically over 24 pounds in a period of 10 days. However the patient has been developing increased confusion and weakness,, although the shortness of breath has not been a major issue patient was brought into the ER, chest x-ray showed bilateral ple ural effusions, right more so than left. Patient was also noted to have significant fluid retention in her lower extremities. Patient was admitted, and this consult was initiated. Patient is not on any anticoagulation therapy, I evaluated the patient with daughter at bedside, and recommended that we continue diuretics for now, will consider thoracentesis of the patient's pleural effusion does not improve after diuresis. Reviewed the results of the ultrasound, thoracentesis could be performed, but considering the patient's history and considering her congestive heart failure history I would recommend medical therapy for now and if that fails would definitely recommend thoracentesis. Patient was reevaluated today on 12/30/2022, patient is resting in bed, O2 sats is 95% on room air, multiple family members at bedside. Reviewed chest x-ray findings with the family members and explained to them that the patient continues to have significant right-sided pleural effusion, and would recommend thoracentesis if family is agreeable. Apparently family seems to be more inclined to consider comfort care measures, this has not been fully decided yet, but they seem to be inclined to consider that trial. Family members Prefer not to have thoracentesis for the time being, prefer to continue present medical management for now, and again they seem to be more inclined to seriously consider comfort care on this patient. Not to mention the patient is not in any distress at this point, she is on room air, and O2 sats is 95%. Labs today were reviewed, creatinine is 0.86 potassium is 2.8 The patient is seen today 12/31/2022 and follow-up on the selective care unit. She is currently sitting up in a chair. Awake and alert in no acute distress. Maintaining good O2 saturations in the 90s on room air. Blood glucose 173. Potassium level 2.5. Currently being replaced. She is on Demadex and Zaroxolyn. Family is at the bedside and still prefer no intervention including thoracentesis. The patient is in no pulmonary distress. Objective - Vital Signs Vital signs: Vital Signs Temp 98 F 12/31/22 07:55 Pulse 107 H 12/31/22 07:57 Resp 16 12/31/22 07:55 BP 92/58 12/31/22 07:55 Pulse Ox 92 L 12/31/22 07:55 FiO2 Intake & Output 12/30/22 12/31/22 12/31/22 18:59 06:59 18:59 Intake Total 0 Balance 0 Intake: Oral 0 Other: Voiding Method Diaper Diaper Diaper Incontinent Incontinent Incontinent # Voids 1 # Bowel Movements 1 4 - Exam GENERAL EXAM: Alert, pleasant 87-year-old female, up in a chair, on room air, comfortable in no apparent distress. HEAD: Normocephalic. EYES: Normal reaction of pupils, equal size. NOSE: Clear with pink turbinates. THROAT: No erythema or exudates. NECK: No masses, no JVD. CHEST: No chest wall deformity. LUNGS: Equal air entry with crackles, diminished in the bilateral bases right greater than left. CVS: S1 and S2 normal with no audible murmur, regular rhythm. ABDOMEN: No hepatosplenomegaly, normal bowel sounds, no guarding or rigidity. SPINE: No scoliosis or deformity SKIN: No rashes CENTRAL NERVOUS SYSTEM: No focal deficits, tone is normal in all 4 extremities. EXTREMITIES: There is no peripheral edema. No clubbing, no cyanosis. Peripheral pulses are intact. - Labs CBC & Chem 7: 12/29/22 08:05 12/31/22 09:57 Labs: Abnormal Lab Results - Last 24 Hours (Table) 12/30/22 12/30/22 12/31/22 Range/Units 16:20 20:46 06:02 Potassium (3.5-5.1) mmol/L POC Glucose (mg/dL) 197 H 232 H 173 H (70-110) mg/dL 12/31/22 12/31/22 Range/Units 09:57 11:37 Potassium 2.5 L* (3.5-5.1) mmol/L POC Glucose (mg/dL) 186 H (70-110) mg/dL Assessment and Plan Assessment: Acute on chronic systolic congestive heart failure with bilateral pleural effusions, right greater than left Chronic systolic congestive heart failure Abnormal troponins, being addressed by cardiology Chronic atrial fibrillation, not on anticoagulation therapy because of previous history of rectal bleeding Benign essential hypertension Dyslipidemia Electrolytes imbalance with hypokalemia Possible metabolic encephalopathy with increased confusion at home according to daughter Plan: The patient was seen and evaluated Labs and medications reviewed Potassium being replaced Currently on Demadex and Zaroxolyn Currently stable and on room air Sitting up in a chair DO NOT RESUSCITATE/DO NOT INTUBATE CODE STATUS Plan is for subacute rehab at discharge We will continue to follow I have personally seen and examined the patient, performed the documentation and the assessment and plan as written. Number of minutes spent on the visit: 10.
[2022-12-31] MEDS ORDERED: Magnesium Replacement Protocol 1 EACH MISC MISCELLANE PRN (14:15)
[2022-12-31 16:15] LABS: Glucose,Whole Blood 224 mg/dL (70-110)
[2022-12-31] MEDS ORDERED: MAGNESIUM SULFATE-D5W PMX 1 GM in DEXTROSE/WATER 1 100ML.BAG IVPB ONE (17:06)
[2022-12-31] MEDS: INSULIN ASPART (NovoLOG) 100 UNIT/ML VIAL SQ SCH ×2 (17:21→20:11)
[2022-12-31 20:02] LABS: Glucose,Whole Blood 192 mg/dL (70-110)
[2022-12-31] MEDS: METOPROLOL SUCCINATE (ER) 25 MG TAB.ER.24H PO SCH (20:12)
[2022-12-31] MEDS: ZINC OXIDE PASTE (Z-GUARD) 1 APPLIC APPLIC TOPICAL PRN ×2 (20:50→23:56)
[2022-12-31] MEDS: POTASSIUM BICARBONATE/CIT AC 20 MEQ TABLET.EFF NG-TUBE SCH ×2 (22:38→23:56)
[2023-01-01 06:32] LABS: Glucose,Whole Blood 129 mg/dL (70-110)
[2023-01-01] MEDS: INSULIN ASPART (NovoLOG) 100 UNIT/ML VIAL SQ SCH ×2 (06:36→13:05)
[2023-01-01] MEDS: LACTOBACILLUS ACIDOPHILUS/PECT 1 EACH CAPSULE PO SCH (09:11)
[2023-01-01] MEDS: TORSEMIDE 20 MG TAB PO SCH (09:11)
[2023-01-01] MEDS: PSYLLIUM HUSK 100% 6 GM PACKET PO SCH (09:11)
[2023-01-01] MEDS: TRIAMCINOLONE 0.1% CREAM 80 GM TUBE TOPICAL SCH (09:12)
[2023-01-01 09:55] LABS: African American GFR (CKD) 62 (>60 ml/min/1.73 sqM); Anion Gap 14 mmol/L; Blood Urea Nitrogen 46 mg/dL (7-17); Calcium 8.7 mg/dL (8.4-10.2); Carbon Dioxide 25 mmol/L (22-30); Chloride 97 mmol/L (98-107); Glucose 145 mg/dL (74-99); Non-African American GFR(CKD) 53 (>60 ml/min/1.73 sqM); Sodium 136 mmol/L (137-145)
[2023-01-01 10:12] LABS: Potassium 4.6 mmol/L (3.5-5.1)
--- NOTE | 2023-01-01 10:42 | P.DS ---
Providers Date of admission: 12/28/22 11:27 Expected date of discharge: 01/01/23 Attending physician: Akin Hopper MD Consults: 12/29/22 08:40 Consult Physician Routine Consulting Provider: Roverto Wells Consult Reason/Comments: Pleural effusion Do you want consulting provider notified?: Yes Primary care physician: Lynette Valdez Hospital Course: Final Diagnoses: Dyspnea, secondary to bilateral pleural effusions, right greater than left. Metabolic encephalopathy secondary to the above and electrolyte abnorm. Reported Weight loss of 24 pounds within the last 10 days secondary to diuresing Fall, possibly related to the above Hypokalemia secondary to diuresing Chronic systolic CHF, EF 43%, proBNP 857 Elevated troponins, not suggestive of ACS as per cardiology Chronic atrial fibrillation, not on anticoagulation secondary to history of rectal bleeding CAD, history of [place] Obesity, BMI 29 Hospital course:This is a 87-year-old female with past medical history signi ficant for permanent atrial fibrillation, atrial flutter, hypertension, hyperlipidemia, CAD, [place], cardiomyopathy, CHF, presented to the ER with worsening dyspnea. Family members at bedside report patient had shortness of breath for the last month.Followed up last with Dr. Owens on , at which time ,diuretics were changed over to torsemide and placed on metolazone every 2 days. Patient lost 24 pounds over 10 days, developed increased confusion accompanied by increased weakness. Family reports patient baseline is alert and oriented 3, writes letters and is usually active. On Wednesday night patient had increased confusion, alert only to her name and tripped on a heavy stationary rubber rug. Troponins serially 0.044, 0.035, 0.062.EKG report atrial fibrillation with heart rates low 100s, further review as per cardiology. Potassium 2.3 on admission, currently 2.6, receiving further supplementation. O2 sat in the low 90s on room air. BNP 857, chest x-ray reporting cardiomegaly, pulmonary vascular congestion and bilateral pleural effusions. Ultrasound of the chest reported moderate right pleural effusion, marked for potential thoracentesis, small left pleural effusion. INR 1.2. Afebrile, normal WBC. Hemoglobin 10.9, platelets 210. Sodium 139, potassium 2.6, bicarb 32, BUN 39, creatinine 0.8. Blood sugars controlled. Denies chest pain, palpitations, maintaining O2 sats in the mid to high 90s on room air. 12/30/22 CXR reported similar moderate right and small pleural effusions with right basilar atelectasis/consolidation, decreased pulmonary vascular congestion from prior exam. Pulmonary consult in place. Sitting up in bed, feels better, eating breakfast. Denies chest pain, palpitations or shortness of breath. Potential thoracentesis discussed, pending pulmonary recommendations. 12/31/2022 evaluated by pulmonary, thoracentesis recommended, family declined. Family had also considered home with hospice, but now leaning towards proceeding with subacute rehab. Maintained on Demadex and metolazone, potassium 2.5, IV and oral supplements initiated. Magnesium level ordered and pending. Maintaining O2 sats in the low 90s on room air currently. Denies chest pain, palpitations. 01/01/2023 potassium supplemented throughout the day yesterday currently 4.6, magnesium 2. Mild tachycardia post-showering. Alert and oriented 3. Denies chest pain, palpitations or shortness of breath. Maintaining O2 sats in the high 90s on room air. Afebrile. As per cardiology's recommendations patient continues on Demadex daily and metolazone q 2days. Requires close monitoring of electrolytes, renal function. Cleared by cardiology for discharge. Patient will be discharged to [facility] subacute rehab today in a stable condition with guarded prognosis pending final DC recommendations and clearance per pulmonary. The impression and plan of care has been dictated as directed. : I performed a history and examination of this patient, discussed the same with the dictator. I agree with the dictator's note ,documented as a scribe. Any additional findings or plans will be noted. Patient Condition at Discharge: Stable Plan - Discharge Summary Discharge Rx Participant: No New Discharge Prescriptions: New Lactobacillus Acidophilus [Acidophilus Probiotic] 1 each PO DAILY #30 capsule Triamcinolone 0.1% Cream [Kenalog 0.1% Cream] 1 applic TOPICAL TID each Acetaminophen Tab [Tylenol] 650 mg PO Q6HR PRN tab PRN Reason: Fever And/ Or Pain Zinc Oxide 1 applic TOPICAL QID PRN #30 gm PRN Reason: Pain/Discomfort Psyllium Husk 100% [Metamucil Packet] 6 gm PO DAILY packet Continue Lifeblood 2 tab PO W/LUNCH Chlorophyll 1 tab PO TID Therafood 2 tab PO W/LUNCH Renafood 3 tab PO BID B-Core 2 tab PO TID metOLazone 2.5 mg PO Q2D Prot 1 dose PO TID Vitamin C 1 tab PO DAILY@1900 Metoprolol Succinate (ER) [Toprol XL] 25 mg PO HS L.acidoph,Paracasei, B.lactis [Probiotic] 1 cap PO DAILY [place]-3 3 cap PO BID Cardio Plus 2 cap PO TID Torsemide [Demadex] 20 mg PO DAILY Changed Potassium Chloride [Klor-Con M20] 20 meq PO TID #0 Discharge Medication List B-Core 2 tab PO TID 12/28/22 [History] Cardio Plus 2 cap PO TID 12/28/22 [History] Chlorophyll 1 tab PO TID 12/28/22 [History] L.acidoph,Paracasei, B.lactis [Probiotic] 1 cap PO DAILY 12/28/22 [History] Lifeblood 2 tab PO W/LUNCH 12/28/22 [History] Metoprolol Succinate (ER) [Toprol XL] 25 mg PO HS 12/28/22 [History] [place]-3 3 cap PO BID 12/28/22 [History] Prot 1 dose PO TID 12/28/22 [History] Renafood 3 tab PO BID 12/28/22 [History] Therafood 2 tab PO W/LUNCH 12/28/22 [History] Torsemide [Demadex] 20 mg PO DAILY 12/28/22 [History] Vitamin C 1 tab PO DAILY@1900 12/28/22 [History] metOLazone 2.5 mg PO Q2D 12/28/22 [History] Acetaminophen Tab [Tylenol] 650 mg PO Q6HR PRN tab 12/31/22 [Rx] Lactobacillus Acidophilus [Acidophilus Probiotic] 1 each PO DAILY #30 capsule 12/31/22 [Rx] Psyllium Husk 100% [Metamucil Packet] 6 gm PO DAILY packet 12/31/22 [Rx] Triamcinolone 0.1% Cream [Kenalog 0.1% Cream] 1 applic TOPICAL TID each 12/31/22 [Rx] Zinc Oxide 1 applic TOPICAL QID PRN #30 gm 12/31/22 [Rx] Potassium Chloride [Klor-Con M20] 20 meq PO TID #0 01/01/23 [Rx] Follow up Appointment(s)/Referral(s): Akin Hopper MD [STAFF PHYSICIAN] - 1 Week (After discharge from subacute rehab) [facility] [NON-STAFF] - (For hospital bed delivery.) Activity/Diet/Wound Care/Special Instructions: [facility] subacute rehab. Requires Hospital Bed r/t CHF. Needs head of bed elevated greater then 30 deg ines to alleviate dyspnea caused by CHF. CBC, BMP, Magnesium in 2 days. Discharge/Stand Alone Forms: Who Do I Call?, Community Resources Discharge Disposition: TRANSFER TO SNF/ECF
[2023-01-01 11:29] LABS: Glucose,Whole Blood 175 mg/dL (70-110)
[2023-01-01 12:38] VITALS: BP 113/79; PULSE 86; RESP 22; TEMP 97.2
[2023-01-01] MEDS: metOLazone 2.5 MG TAB PO SCH (13:05)
--- NOTE | 2023-01-01 13:20 | P.PN ---
Subjective Progress Note Date: 01/01/23 Principal diagnosis: Acute on chronic systolic congestive heart failure with bilateral pleural effusions This is an 87-year-old female with known history of chronic atrial fibrillation, hypertension, dyslipidemia, cardiomyopathy, LV dysfunction, congestive heart failure, patient has been following up with Dr. Owens on outpatient basis, and since then 12/07/22, patient has been Receiving treatment for congestive heart failure with multiple diuretics including Demadex and metolazone. Patient has been diuresing and responding well to diuretics and she lost basically over 24 pounds in a period of 10 days. However the patient has been developing increased confusion and weakness,, although the shortness of breath has not been a major issue patient was brought into the ER, chest x-ray showed bilateral pleural effusions, right more so than left. Patient was also noted to have significant fluid retention in her lower extremities. Patient was admitted, and this consult was initiated. Patient is not on any anticoagulation therapy, I evaluated the patient with daughter at bedside, and recommended that we continue diuretics for now, will consider thoracentesis of the patient's pleural effusion does not improve after diuresis. Reviewed the results of the ultrasound, thoracentesis could be performed, but considering the patient's history and considering her congestive heart failure history I would recommend medical therapy for now and if that fails would definitely recommend thoracentesis. Patient was reevaluated today on 12/30/2022, patient is resting in bed, O2 sats is 95% on room air, multiple family members at bedside. Reviewed chest x-ray findings with the family members and explained to them that the patient continues to have significant right-sided pleural effusion, and would recommend thoracentesis if family is agreeable. Apparently family seems to be more inclined to consider comfort care measures, this has not been fully decided yet, but they seem to be inclined to consider that trial. Family members Prefer not to have thoracentesis for the time being, prefer to continue present medical management for now, and again they seem to be more inclined to seriously consider comfort care on this patient. Not to mention the patient is not in any distress at this point, she is on room air, and O2 sats is 95%. Labs today were reviewed, creatinine is 0.86 potassium is 2.8 Reevaluated today on 01/01/23, patient remains on room air, doing well, family is planning to take the patient to a pen[facility]entiary today. Patient is tolerating medical therapy well, she does not seem to be in any distress, and I would recommend that we continue diuretics and again no need for thoracentesis at this point. Basic metabolic profile is normal BUN is 46 creatinine 0.96 patient is relatively asymptomatic and not in distress, on room air Objective - Vital Signs Vital signs: Vital Signs Temp 97.2 F L 01/01/23 12:00 Pulse 86 01/01/23 12:00 Resp 22 01/01/23 12:00 BP 113/79 01/01/23 12:00 Pulse Ox 94 L 01/01/23 12:00 FiO2 Intake & Output 12/31/22 01/01/23 01/01/23 18:59 06:59 18:59 Intake Total 420 180 Balance 420 180 Weight 81.1 kg Intake: Oral 420 180 Other: Voiding Method Diaper Diaper Diaper Incontinent Incontinent Incontinent # Voids 4 1 # Bowel Movements 1 1 - Exam Physical Exam: Revealed 87-year-old female in no distress on room air, O2 sats is 94% Head: Atraumatic, normocephalic. HEENT:[Neck is supple.] [No neck masses.] [No thyromegaly.] [No JVD.] Chest: [Diminished breath sounds at the bases no crackles or rhonchi or wheezes Cardiac Exam: Irregular irregular rhythm. Normal S1 and S2, 2/6 systolic murmur thought the precordium Abdomen: [Soft, nontender, no megaly, no rebound, no guarding, normal bowel sounds.] Extremities: [No clubbing, 2+ bipedal edema, no cyanosis.] Neurological Exam: Patient is awake, alert oriented 3. No gross focal neurolo gic deficit Psychiatric: Normal mood, affect and normal mental status examination - Labs CBC & Chem 7: 12/29/22 08:05 01/01/23 08:35 Labs: Abnormal Lab Results - Last 24 Hours (Table) 12/31/22 12/31/22 12/31/22 Range/Units 16:08 16:14 20:01 Sodium (137-145) mmol/L Potassium 3.0 L (3.5-5.1) mmol/L Chloride (98-107) mmol/L BUN (7-17) mg/dL Glucose (74-99) mg/dL POC Glucose (mg/dL) 224 H 192 H (70-110) mg/dL 12/31/22 01/01/23 01/01/23 Range/Units 21:22 06:28 08:35 Sodium 136 L (137-145) mmol/L Potassium 3.2 L (3.5-5.1) mmol/L Chloride 97 L (98-107) mmol/L BUN 46 H (7-17) mg/dL Glucose 145 H (74-99) mg/dL POC Glucose (mg/dL) 129 H (70-110) mg/dL 01/01/23 Range/Units 11:27 Sodium (137-145) mmol/L Potassium (3.5-5.1) mmol/L Chloride (98-107) mmol/L BUN (7-17) mg/dL Glucose (74-99) mg/dL POC Glucose (mg/dL) 175 H (70-110) mg/dL Assessment and Plan Assessment: Impression: Acute on chronic systolic congestive heart failure with bilateral pleural effusions Chronic systolic congestive heart failure Abnormal troponins, being addressed by cardiology Chronic atrial fibrillation, not on anticoagulation therapy because of previous history of rectal bleeding Benign essential hypertension Dyslipidemia Electrolytes imbalance with hypokalemia Possible metabolic encephalopathy with increased confusion at home according to daughter. Recommendation: C incisions discharge planning today if cleared by other consultants continue present treatment plan Continue Demadex and metolazone Family is considering possibly comfort care meit for discharge from our perspective Time with Patient: Less than 30
== END 2023-01-01 15:46 | DRG 280 ==
LOC: EC 06:26 → 3SCARD 11:27
PROVIDERS: ADMIT Family Medicine; ATTEND Family Medicine
DX: I11.0 Hypertensive heart disease with heart failure (principal); G93.41 Metabolic encephalopathy; I21.A1 Myocardial infarction type 2; I50.23 Acute on chronic systolic (congestive) heart failure; J90 Pleural effusion, not elsewhere classified; I48.20 Chronic atrial fibrillation, unspecified; I27.20 Pulmonary hypertension, unspecified; I42.9 Cardiomyopathy, unspecified; Z51.5 Encounter for palliative care; E66.9 Obesity, unspecified; E78.5 Hyperlipidemia, unspecified; J44.9 Chronic obstructive pulmonary disease, unspecified; E87.6 Hypokalemia; I25.10 Atherosclerotic heart disease of native coronary artery without angina pectoris; I25.2 Old myocardial infarction; Z68.29 Body mass index [BMI] 29.0-29.9, adult; Z79.899 Other long term (current) drug therapy; Z88.5 Allergy status to narcotic agent; Z88.8 Allergy status to other drugs, medicaments and biological substances
CPT/HCPCS: 36415; 71045; 71046; 76604; 80048; 80053; 81003; 83735; 83880; 84132; 84484; 85025; 85610; 85730; 93005; 96365; 96366; 96375; 99285

== ENCOUNTER → 2023-01-09 | Outpatient (CLI) | payer MEDICARE ==
[2023-01-09 13:50] LABS: HCT 33.2 % (37.2-46.3); HGB 9.5 g/dL (12.0-15.0); MCH 24.2 pg (27.0-32.0); MCHC 28.6 g/dL (32.0-37.0); MCV 84.7 FL (80.0-97.0); Mean Platelet Volume 10.4 FL (9.5-12.2); NRBC Per 100 WBC 0.02 X 10*3/uL (0.00-0.01); Platelet Count 275 X 10*3/uL (140-440); RBC 3.92 X 10*6/uL (4.10-5.20); RDW 22.6 % (11.5-14.5); WBC 7.27 X 10*3/uL (4.50-10.00)
[2023-01-09 13:51] LABS: ALT 23 U/L (8-44); AST 25 U/L (13-35); Albumin 3.2 g/dL (3.8-4.9); Albumin/Globulin Ratio 1.14 Ratio (1.60-3.17); Alkaline Phosphatase 122 U/L (41-126); BUN/Creat Ratio 30.45 Ratio (12.00-20.00); Blood Urea Nitrogen 33.5 mg/dL (9.0-27.0); Calcium 9.1 mg/dL (8.7-10.3); Carbon Dioxide 27.8 mmol/L (21.6-31.8); Chloride 102 mmol/L (96-109); Globulin 2.8 g/dL (1.6-3.3); Glucose 114 mg/dL (70-110); Magnesium 1.8 mg/dL (1.5-2.4); Potassium 3.3 mmol/L (3.5-5.5); Sodium 143 mmol/L (135-145); Total Bilirubin 1.3 mg/dL (0.3-1.2)
== END | disposition home or self-care (01) ==
LOC: LABWHC1 08:41
PROVIDERS: ATTEND Family Medicine
DX: D64.9 Anemia, unspecified (principal); E87.6 Hypokalemia
CPT/HCPCS: 36415; 80053; 83735; 85027

== ENCOUNTER 2023-02-15 06:31 | Inpatient (IN) | payer MEDICARE ==
[2023-02-15] MEDS ORDERED: DILTIAZEM DRIP BOLUS FROM BAG 1 MG SOLN IV ONE (06:43)
[2023-02-15] MEDS ORDERED: DILTIAZEM 125 MG in SODIUM CHLORIDE 0.9% 100 ML IV SCH (06:45)
[2023-02-15] MEDS ORDERED: SODIUM CHLORIDE 0.9% 500 ML 500 ML IV STA (06:52)
[2023-02-15 07:01] LABS: Anisocytosis Moderate; Basophils % (A) 0 %; Eosinophils % (A) 0 %; HCT 40.2 % (34.0-46.0); HGB 12.4 gm/dL (11.4-16.0); Hypochromasia Marked; Lymphocytes % (A) 15 %; MCH 26.9 pg (25.0-35.0); MCHC 30.9 g/dL (31.0-37.0); MCV 87.3 fL (80.0-100.0); Mean Platelet Volume 8.1; Monocytes # (A) 1.1 k/uL (0-1.0); Monocytes % (A) 8 %; Neutrophils # (A) 9.5 k/uL (1.3-7.7); Neutrophils % (A) 74 %; Platelet Count 279 k/uL (150-450); RBC 4.61 m/uL (3.80-5.40); RDW 21.1 % (11.5-15.5); WBC 12.9 k/uL (3.8-10.6)
--- NOTE | 2023-02-15 07:05 | ED ---
Altered Mental Status HPI - General Chief Complaint: Altered Mental Status Stated Complaint: Afib Time Seen by Provider: 02/15/23 06:40 Source: family, EMS, RN notes reviewed Mode of arrival: EMS Limitations: altered mental status - History of Present Illness Initial Comments: This is an 87-year-old female who presents to the emergency department for alt ered mental status. Her family states that over the last 3 days she has been increasingly confused, increasingly weak, and less responsive. This morning, she was unable to get to the restroom, at which point they decided to call EMS. Her family states that she has a history of very low potassium, and when this occurs, she typically presents like this. When EMS arrived, they found her to be alert and oriented 1. They state that she is usually alert and oriented 4 when her potassium is within normal limits. She was also found to be in A. fib with RVR. She does have a history of a-fib and takes Metoprolol. However she is not anticoagulated due to her history of rectal bleeding. She knows her name, but is otherwise unable to provide any information. MD Complaint: altered mental status, confusion Onset/Timin -: days(s) - Related Data Home Medications Medication Instructions Recorded Confirmed Metoprolol Succinate (ER) [Toprol 25 mg PO HS 12/28/22 02/15/23 XL] Torsemide [Demadex] 20 mg PO DAILY 12/28/22 02/15/23 Potassium Chloride [Klor-Con M20] 20 meq PO QID 02/15/23 02/15/23 Previous Rx's Medication Instructions Recorded Triamcinolone 0.1% Cream [Kenalog 1 applic TOPICAL TID each 12/31/22 0.1% Cream] Zinc Oxide 1 applic TOPICAL QID PRN #30 gm 12/31/22 Allergies Allergy/AdvReac Type Severity Reaction Status Date / Time codeine Allergy Unknown Verified 02/15/23 06:38 ticagrelor [From Brilinta] AdvReac ASHISH Verified 02/15/23 06:38 Review of Systems ROS Statement: Those systems with pertinent positive or pertinent negative responses have been documented in the HPI. ROS Other: All systems not noted in ROS Statement are negative. Past Medical History Past Medical History: Atrial Flutter, Hyperlipidemia, Hypertension, Myocardial Infarction (NE) Last Myocardial Infarction Date:: august 13, 2022 History of Any Multi-Drug Resistant Organisms: None Reported Past Surgical History: Adenoidectomy, Heart Catheterization, Tonsillectomy Past Anesthesia/Blood Transfusion Reactions: No Reported Reaction Past Psychological History: No Psychological Hx Reported Smoking Status: Never smoker Past Alcohol Use History: None Reported Past Drug Use History: None Reported General Exam Limitations: altered mental status General appearance: alert, in no apparent distress Head exam: Present: atraumatic, normocephalic, normal inspection Respiratory exam: Present: normal lung sounds bilaterally. Absent: respiratory distress, wheezes, rales, rhonchi, stridor Cardiovascular Exam: Present: tachycardia, irregular rhythm GI/Abdominal exam: Present: soft. Absent: distended, tenderness Neurological exam: Present: alert, other (oriented x1) Skin exam: Present: warm, dry, intact, normal color. Absent: rash Course Vital Signs 02/15/23 02/15/23 02/15/23 06:33 06:45 07:00 Temperature 98.1 F Pulse Rate 153 H 152 H 152 H Pulse Rate [ Pulse Oximetery ] Respiratory 18 20 20 Rate Blood Pressure 121/90 121/90 128/78 Blood Pressure [Right Arm] O2 Sat by Pulse 97 94 L 93 L Oximetry 02/15/23 02/15/23 10:05 10:10 Temperature 97.4 F L 97.9 F Pulse Rate 102 H Pulse Rate [ 108 H Pulse Oximetery ] Respiratory 16 18 Rate Blood Pressure 106/72 Blood Pressure 92/59 [Right Arm] O2 Sat by Pulse 92 L 98 Oximetry Medical Decision Making - Medical Decision Making This is an 87 year old female who presents to the emergency department for altered mental status. Was pt. sent in by a medical professional or institution? @ -No Did you speak to anyone other than the patient for history? @ -Her family and EMS provided all of the information. Did you review nursing and triage notes? @ -Yes, and I agree, it is accurate with regards to the patient's symptoms. Were old charts reviewed? @ -Discharge summary from 01/01 discussing that the patient was admitted from 12/28/22 - 01/01/23 after presenting with dyspnea, confusion, and increased weakness. She was found to have a low potassium of 2.3. Troponins were elevated but remained flat and there was no concern for ACS. Pulmonology advised a thoracentesis, however the family had declined. They had considered hospice, however they opted to proceed with subacute rehab. The patient was discharged to [facility]. Differential Diagnosis? @ -Differential Altered Mental Status: Hypoglycemia, DKA, hypercapnia, ETOH, overdose, CO poisoning, trauma, myxedema coma, HTN encephalopathy, infection, encephalitis, psychosis, intercranial hemorrhage, hepatic encephalopathy, meningitis, CVA, this is not meant to be an all-inclusive list EKG interpreted by me (3pts min.)? @ -EKG interpreted by me demonstrating the following: Atrial fibrillation with rapid ventricular response. Ventricular rate 151 bpm, QRS duration 127 ms, QTC 383 ms. X-rays interpreted by me (1pt min.)? @ -Chest x-ray obtained. My interpretation identifies cardiomegaly and pulmonary vascular congestion. CT interpreted by me (1pt min.)? @ -Not obtained U/S interpreted by me (1pt. min.)? @ -Not obtained What testing was considered but not performed? (CT, X-rays, U/S, labs)? Why? @ -None What meds were considered but not given? Why? @ -None Did you discuss the management of the patient with other professionals? @ -Yes, Dr. Hopper, who accepts the patient for admission. Did you reconcile home meds? @ -No Was smoking cessation discussed for >3mins.? @ -No Was critical care preformed (if so, how long)? @ -No Were there social determinants of health that impacted care today? How? (Homelessness, low income, unemployed, alcoholism, drug addiction, transportation, low edu. Level, literacy, decrease access to med. care, halfway, rehab)? @ -No Was there de-escalation of care discussed even if they declined? (Discuss DNR or withdrawal of care, Hospice)? @ -No What co-morbidities impacted this encounter? (DM, HTN, Smoking, COPD, CAD, Cancer, CVA, Hep., AIDS, mental health diagnosis, sleep apnea, morbid obesity)? @ -A-fib, CHF, hypokalemia, HLD, HTN Was patient admitted / discharged? @ -Admitted. Patient was in a-fib with RVR on arrival and started on a Cardizem drip. Lab work obtained revealing leukocytosis, hyperkalemia with a p otassium of 6.3, acute kidney injury, liver enzymes elevation, elevated BNP of 2720, and elevated troponin of 0.048. BNP is elevated more so than it has been in the past. 40mg IV Lasix administered. AST and ALT are also acutely elevated without a history of prior elevation. However, bilirubin and alkaline phosphatase have been elevated before, but not to this extent. Chest x-ray demonstrates cardiomegaly and prominence of pulmonary vascular markings and infiltrate as well as a moderate right pleural effusion. Repeat potassium confirms elevation. Patient treated with hyperkalemia cocktail containing calcium gluconate, insulin, Lokelma, and bicarbonate. Patient admitted to medicine for altered mental status, hyperkalemia, LAM, transaminitis, and CHF exacerbation. Serial troponins ordered and consult placed for cardiology. Undiagnosed new problem with uncertain prognosis? @ -None Drug Therapy requiring intensive monitoring for toxicity (Heparin, Nitro, Insulin, Cardizem)? @ -Cardizem Were any procedures done? @ -None Diagnosis/symptom? @ -Hyperkalemia, LAM, transaminitis, altered mental status Acute, or Chronic, or Acute on Chronic? @ -Acute Uncomplicated (without systemic symptoms) or Complicated (systemic symptoms)? @ -Complicated Side effects of treatment? @ -None Exacerbation, Progression, or Severe Exacerbation] @ -Not applicable Poses a threat to life or bodily function? @ -Yes Diagnosis/symptom? @ -CHF exacerbation Acute, or Chronic, or Acute on Chronic? @ -Acute on chronic Uncomplicated (without systemic symptoms) or Complicated (systemic symptoms)? @ -Complicated Side effects of treatment? @ -None Exacerbation, Progression, or Severe Exacerbation] @ -Severe exacerbation Poses a threat to life or bodily function? @ -Yes This case was discussed in detail with the attending ED physician, Dr. Scott. Presentation, findings, and treatment plan discussed in detail as well. - Lab Data Result diagrams: 02/15/23 06:48 02/15/23 11:36 Lab Results 02/15/23 02/15/23 02/15/23 Range/Units 06:48 06:48 06:48 WBC 12.9 H (3.8-10.6) k/uL RBC 4.61 (3.80-5.40) m/uL Hgb 12.4 (11.4-16.0) gm/dL Hct 40.2 (34.0-46.0) % MCV 87.3 (80.0-100.0) fL MCH 26.9 (25.0-35.0) pg MCHC 30.9 L (31.0-37.0) g/dL RDW 21.1 H (11.5-15.5) % Plt Count 279 (150-450) k/uL MPV 8.1 Neutrophils % 74 % Lymphocytes % 15 % Monocytes % 8 % Eosinophils % 0 % Basophils % 0 % Neutrophils # 9.5 H (1.3-7.7) k/uL Lymphocytes # 2.0 (1.0-4.8) k/uL Monocytes # 1.1 H (0-1.0) k/uL Eosinophils # 0.0 (0-0.7) k/uL Basophils # 0.0 (0-0.2) k/uL Hypochromasia Marked Anisocytosis Moderate PT 17.1 H (10.0-12.5) sec INR 1.7 H (<1.2) APTT 24.8 (22.0-30.0) sec Sodium (137-145) mmol/L Potassium (3.5-5.1) mmol/L Chloride (98-107) mmol/L Carbon Dioxide (22-30) mmol/L Anion Gap mmol/L BUN (7-17) mg/dL Creatinine (0.52-1.04) mg/dL Est GFR (CKD-EPI)AfAm (>60 ml/min/1.73 sqM) Est GFR (CKD-EPI)NonAf (>60 ml/min/1.73 sqM) Glucose (74-99) mg/dL Calcium (8.4-10.2) mg/dL Magnesium (1.6-2.3) mg/dL Total Bilirubin (0.2-1.3) mg/dL AST (14-36) U/L ALT (4-34) U/L Alkaline Phosphatase (38-126) U/L Troponin I (0.000-0.034) ng/mL NT-Pro-B Natriuret Pep pg/mL Total Protein (6.3-8.2) g/dL Albumin (3.5-5.0) g/dL Urine Color Yellow Urine Appearance Cloudy H (Clear) Urine pH 5.5 (5.0-8.0) Ur Specific [place] 1.018 (1.001-1.035) Urine Protein 1+ H (Negative) Urine Glucose (UA) Negative (Negative) Urine Ketones Negative (Negative) Urine Blood Negative (Negative) Urine Nitrite Negative (Negative) Urine Bilirubin Negative (Negative) Urine Urobilinogen 2.0 (<2.0) mg/dL Ur Leukocyte Esterase Negative (Negative) Urine RBC <1 (0-5) /hpf Urine WBC 4 (0-5) /hpf Ur Squamous Epith Cells 1 (0-4) /hpf Urine Bacteria Rare H (None) /hpf Hyaline Casts 42 H (0-2) /lpf Urine Mucus Occasional H (None) /hpf Influenza Type A (PCR) (Not Detectd) Influenza Type B (PCR) (Not Detectd) RSV (PCR) (Not Detectd) SARS-CoV-2 (PCR) (Not Detectd) 02/15/23 02/15/23 02/15/23 Range/Units 06:48 06:48 06:48 WBC (3.8-10.6) k/uL RBC (3.80-5.40) m/uL Hgb (11.4-16.0) gm/dL Hct (34.0-46.0) % MCV (80.0-100.0) fL MCH (25.0-35.0) pg MCHC (31.0-37.0) g/dL RDW (11.5-15.5) % Plt Count (150-450) k/uL MPV Neutrophils % % Lymphocytes % % Monocytes % % Eosinophils % % Basophils % % Neutrophils # (1.3-7.7) k/uL Lymphocytes # (1.0-4.8) k/uL Monocytes # (0-1.0) k/uL Eosinophils # (0-0.7) k/uL Basophils # (0-0.2) k/uL Hypochromasia Anisocytosis PT (10.0-12.5) sec INR (<1.2) APTT (22.0-30.0) sec Sodium 134 L (137-145) mmol/L Potassium 6.3 H* (3.5-5.1) mmol/L Chloride 100 (98-107) mmol/L Carbon Dioxide 15 L (22-30) mmol/L Anion Gap 19 mmol/L BUN 31 H (7-17) mg/dL Creatinine 1.10 H (0.52-1.04) mg/dL Est GFR (CKD-EPI)AfAm 52 (>60 ml/min/1.73 sqM) Est GFR (CKD-EPI)NonAf 45 (>60 ml/min/1.73 sqM) Glucose 128 H (74-99) mg/dL Calcium 9.1 (8.4-10.2) mg/dL Magnesium 1.9 (1.6-2.3) mg/dL Total Bilirubin 2.8 H (0.2-1.3) mg/dL AST 271 H (14-36) U/L ALT 139 H (4-34) U/L Alkaline Phosphatase 191 H (38-126) U/L Troponin I 0.048 H* (0.000-0.034) ng/mL NT-Pro-B Natriuret Pep 2720 pg/mL Total Protein 6.3 (6.3-8.2) g/dL Albumin 3.0 L (3.5-5.0) g/dL Urine Color Urine Appearance (Clear) Urine pH (5.0-8.0) Ur Specific [place] (1.001-1.035) Urine Protein (Negative) Urine Glucose (UA) (Negative) Urine Ketones (Negative) Urine Blood (Negative) Urine Nitrite (Negative) Urine Bilirubin (Negative) Urine Urobilinogen (<2.0) mg/dL Ur Leukocyte Esterase (Negative) Urine RBC (0-5) /hpf Urine WBC (0-5) /hpf Ur Squamous Epith Cells (0-4) /hpf Urine Bacteria (None) /hpf Hyaline Casts (0-2) /lpf Urine Mucus (None) /hpf Influenza Type A (PCR) Not Detected (Not Detectd) Influenza Type B (PCR) Not Detected (Not Detectd) RSV (PCR) Not Detected (Not Detectd) SARS-CoV-2 (PCR) Not Detected (Not Detectd) 02/15/23 Range/Units 08:14 WBC (3.8-10.6) k/uL RBC (3.80-5.40) m/uL Hgb (11.4-16.0) gm/dL Hct (34.0-46.0) % MCV (80.0-100.0) fL MCH (25.0-35.0) pg MCHC (31.0-37.0) g/dL RDW (11.5-15.5) % Plt Count (150-450) k/uL MPV Neutrophils % % Lymphocytes % % Monocytes % % Eosinophils % % Basophils % % Neutrophils # (1.3-7.7) k/uL Lymphocytes # (1.0-4.8) k/uL Monocytes # (0-1.0) k/uL Eosinophils # (0-0.7) k/uL Basophils # (0-0.2) k/uL Hypochromasia Anisocytosis PT (10.0-12.5) sec INR (<1.2) APTT (22.0-30.0) sec Sodium (137-145) mmol/L Potassium 6.5 H* (3.5-5.1) mmol/L Chloride (98-107) mmol/L Carbon Dioxide (22-30) mmol/L Anion Gap mmol/L BUN (7-17) mg/dL Creatinine (0.52-1.04) mg/dL Est GFR (CKD-EPI)AfAm (>60 ml/min/1.73 sqM) Est GFR (CKD-EPI)NonAf (>60 ml/min/1.73 sqM) Glucose (74-99) mg/dL Calcium (8.4-10.2) mg/dL Magnesium (1.6-2.3) mg/dL Total Bilirubin (0.2-1.3) mg/dL AST (14-36) U/L ALT (4-34) U/L Alkaline Phosphatase (38-126) U/L Troponin I (0.000-0.034) ng/mL NT-Pro-B Natriuret Pep pg/mL Total Protein (6.3-8.2) g/dL Albumin (3.5-5.0) g/dL Urine Color Urine Appearance (Clear) Urine pH (5.0-8.0) Ur Specific [place] (1.001-1.035) Urine Protein (Negative) Urine Glucose (UA) (Negative) Urine Ketones (Negative) Urine Blood (Negative) Urine Nitrite (Negative) Urine Bilirubin (Negative) Urine Urobilinogen (<2.0) mg/dL Ur Leukocyte Esterase (Negative) Urine RBC (0-5) /hpf Urine WBC (0-5) /hpf Ur Squamous Epith Cells (0-4) /hpf Urine Bacteria (None) /hpf Hyaline Casts (0-2) /lpf Urine Mucus (None) /hpf Influenza Type A (PCR) (Not Detectd) Influenza Type B (PCR) (Not Detectd) RSV (PCR) (Not Detectd) SARS-CoV-2 (PCR) (Not Detectd) - Radiology Data Radiology results: report reviewed, image reviewed Disposition Clinical Impression: CHF exacerbation, Hyperkalemia, Transaminitis, LAM (acute kidney injury), AMS (altered mental status) Disposition: ADMITTED IP TO THIS HOSP
[2023-02-15 07:15] LABS: ALT 139 U/L (4-34); AST 271 U/L (14-36); African American GFR (CKD) 52 (>60 ml/min/1.73 sqM); Alkaline Phosphatase 191 U/L (38-126); Anion Gap 19 mmol/L; Blood Urea Nitrogen 31 mg/dL (7-17); Calcium 9.1 mg/dL (8.4-10.2); Carbon Dioxide 15 mmol/L (22-30); Chloride 100 mmol/L (98-107); Glucose 128 mg/dL (74-99); Magnesium 1.9 mg/dL (1.6-2.3); Non-African American GFR(CKD) 45 (>60 ml/min/1.73 sqM); Sodium 134 mmol/L (137-145); Total Bilirubin 2.8 mg/dL (0.2-1.3); Total Protein 6.3 g/dL (6.3-8.2)
[2023-02-15 07:21] LABS: INR 1.7 (<1.2); Partial Thromboplastin Time 24.8 sec (22.0-30.0); Prothrombin Time 17.1 sec (10.0-12.5)
[2023-02-15 07:22] LABS: NT-Pro-B-Type Natriuretic Pept 2720 pg/mL
--- NOTE | 2023-02-15 07:41 | XR ---
EXAMINATION TYPE: XR chest 2V DATE OF EXAM: 02/15/2023 COMPARISON: 12/30/2022 INDICATION: Altered mental status TECHNIQUE: Frontal and lateral views of the chest are obtained. FINDINGS: The heart size is prominent. The pulmonary vasculature is prominent. There is a moderate right pleural effusion. Mild increased lung markings are in the upper lung erickson .. IMPRESSION: 1. Cardiomegaly with mild prominence of pulmonary vascular markings and infiltrate. Evaluate for morgan estive heart failure. 2. Moderate right pleural effusion
[2023-02-15 07:42] LABS: Potassium 6.3 mmol/L (3.5-5.1)
[2023-02-15] MEDS ORDERED: SODIUM ZIRCONIUM CYCLOSILICATE 10 GM PACKET PO ONE ×2 (07:46→11:46)
[2023-02-15] MEDS ORDERED: CALCIUM GLUCONATE IN NACL 1 GM in SALINE 1 100ML.BAG IVPB ONE (07:46)
[2023-02-15] MEDS ORDERED: DEXTROSE 50% SYRINGE 50 ML IVP ONE (07:46)
[2023-02-15] MEDS ORDERED: INSULIN REGULAR 100 UNIT/ML VIAL (IV) IV ONE (07:46)
[2023-02-15] MEDS ORDERED: SODIUM BICARB 8.4% 50 ML SYR (1 MEQ/ML) IV STA (07:58)
[2023-02-15] MEDS ORDERED: FUROSEMIDE 10 MG/ML 4 ML VIAL IV STA (07:58)
[2023-02-15 08:15] LABS: Appearance,Urine Cloudy (Clear); Bacteria,Urine Rare /hpf; Bilirubin,Urine Negative (Negative); Blood,Urine Negative (Negative); Color,Urine Yellow; Glucose,Urine (UA) Negative (Negative); Hyaline Casts,Urine 42 /lpf (0-2); Ketones,Urine Negative (Negative); Leukocyte Esterase,Urine Negative (Negative); Mucus,Urine Occasional /hpf; Nitrite,Urine Negative (Negative); PH, Urine 5.5 (5.0-8.0); Protein,Urine 1+ (Negative); RBC,Urine <1 /hpf (0-5); Specific Gravity,Urine 1.018 (1.001-1.035); Squamous Epithelial Cell,Urine 1 /hpf (0-4); WBC,Urine 4 /hpf (0-5)
[2023-02-15] MEDS ORDERED: NALOXONE 0.4 MG/ML 1 ML VIAL IV PRN (08:22)
[2023-02-15] MEDS ORDERED: ONDANSETRON 4 MG/2 ML VIAL IVP PRN (08:22)
[2023-02-15] MEDS ORDERED: ACETAMINOPHEN TAB 325 MG TAB PO PRN (08:22)
[2023-02-15 09:04] LABS: Glucose,Whole Blood 121 mg/dL (70-110)
[2023-02-15] MEDS: METOPROLOL TARTRATE 50 MG TAB PO SCH ×2 (12:11→20:39)
--- NOTE | 2023-02-15 12:28 | P.CRDCN ---
History of Present Illness Consult date: 02/15/23 Consult reason: congestive heart failure History of present illness: HISTORY OF PRESENT ILLNESS: This is an 87-year-old female patient of Dr. Paredes with a past medical history significant for acute coronary syndrome secondary to embolization, cardiomyopathy, hypertension, hyperlipidemia, permanent atrial fibrillation, and congestive heart failure. We have been asked to see the patient in consultation for congestive heart failure exacerbation. Patient apparently has had diarrhea for the past 1 week for which the family describes as explosive. Over the past 3 days patient has had mental status changes and increasing weakness. This mo rning she could only stand and could not walk. Family decided to bring her into the emergency center for further evaluation. Patient was found to be in A. fib with RVR at 151 bpm and started on Cardizem bolus followed by a drip. She also was found to have severe hyperkalemia status post insulin, calcium gluconate, bicarb and lokelma. We have been asked to evaluate the patient for A. fib with RVR. Heart rate is now running 102 bpm. Patient was last hospitalized at the end of November at which time she had lost 20 pounds over a few weeks. Thoracentesis was recommended for moderate right-sided pleural effusion the family didn't climb and were considering hospice at that time. EKG reveals atrial fibrillation with mild RVR Chest xray cardiomegaly with mild prominence of pulmonary vascular markings and infiltrate evaluate for congestive heart failure. Moderate right pleural effusion. WBC 12.9, hemoglobin 12.4, platelet count 279. INR 1.7. Potassium 6.3 followed by 6.5 and now 5.2. Sodium 134, BUN 31 creatinine 1.1. Magnesium 1.9. AST 271, ALT 139, alkaline phosphatase 191. Troponin 0.048 and 0.056. ProBNP 2720. Influenza A, influenza B, RNC, Covid 19 not detected. Urinalysis negative for infection. Current home cardiac medications include Toprol-XL 25 mg at bedtime, potassium chloride 20 mEq 4 times daily, Demadex 20 g daily. Most recent echocardiogram obtained in October 2022 at [facility] revealing ejection fraction 43% with global hypokinesia, trace aortic valve regurgitation, moderate tricuspid valve regurgitation and mild pulmonary hypertension Cardiac catheterization history: July 2022 at [facility] revealing acute coronary syndrome due to coronary embolism of the distal OM with 95% stenosis status post coronary thrombectomy with 0% residual stenosis. No evidence of underlying atherosclerotic coronary disease. REVIEW OF SYSTEMS: At the time of my exam: CONSTITUTIONAL: Denies fever or chills. reports weakness HEENT: Denies blurred vision, vision changes, or eye pain. Denies hemoptysis CARDIOVASCULAR: Denies chest pain. Denies orthopnea. Denies PND. Denies palpitations RESPIRATORY: Denies shortness of breath. GASTROINTESTINAL: Denies abdominal pain. Denies nausea or vomiting. HEMATOLOGIC: Denies bleeding disorders. GENITOURINARY: Denies any blood in urine. SKIN: Denies pruitis. Denies rash. PHYSICAL EXAM: VITAL SIGNS: Reviewed. GENERAL: Well-developed in no acute distress. HEENT: Head is normocephalic. Pupils are equal, round. Sclerae anicteric. Mucous membranes of the mouth are moist. Neck supple. No JVD or thyromegaly LUNGS: Respirations even and unlabored. Lungs essentially clear to auscultation bilaterally. HEART: Irregular rate and rhythm. S1 and S2 heard. ABDOMEN: Soft. Nondistended. Nontender. EXTREMITIES: Normal range of motion. No clubbing or cyanosis. Peripheral pulses intact. Minimal bilateral lower extremity edema ASSESSMENT: Mental status change Weakness Hyperkalemia Dehydration Moderate right-sided pleural effusion Abnormal troponins, flat, not suggestive of acute coronary syndrome Chronic heart failure with reduced ejection fraction, 43% History of ACS due to embolization of distal OM with 95% stenosis with thrombectomy Permanent atrial fibrillation, not on anticoagulation on an outpatient basis secondary to history of rectal bleeding per family Hypertension Hyperlipidemia Hypokalemia PLAN: No need to repeat echocardiogram as this was performed in October 2022 Discontinue Cardizem drip Discontinue metoprolol succinate and start patient on Lopressor 50 mg twice d aily Repeat potassium level stat Further recommendations pending patient course Nurse practitioner note has been reviewed by physician. Signing provider agrees with the documented findings, assessment, and plan of care. Past Medical History Past Medical History: Atrial Flutter, Hyperlipidemia, Hypertension, Myocardial Infarction ([place]) Last Myocardial Infarction Date:: august 13, 2022 History of Any Multi-Drug Resistant Organisms: None Reported Past Surgical History: Adenoidectomy, Heart Catheterization, Tonsillectomy Past Anesthesia/Blood Transfusion Reactions: No Reported Reaction Past Psychological History: No Psychological Hx Reported Smoking Status: Never smoker Past Alcohol Use History: None Reported Past Drug Use History: None Reported Medications and Allergies Home Medications Medication Instructions Recorded Confirmed Type Metoprolol Succinate (ER) [Toprol 25 mg PO HS 12/28/22 02/15/23 History XL] Torsemide [Demadex] 20 mg PO DAILY 12/28/22 02/15/23 History Triamcinolone 0.1% Cream [Kenalog 1 applic TOPICAL TID each 12/31/22 02/15/23 Rx 0.1% Cream] Zinc Oxide 1 applic TOPICAL QID PRN #30 gm 12/31/22 02/15/23 Rx Potassium Chloride [Klor-Con M20] 20 meq PO QID 02/15/23 02/15/23 History Allergies Allergy/AdvReac Type Severity Reaction Status Date / Time codeine Allergy Unknown Verified 02/15/23 06:38 ticagrelor [From Brilinta] AdvReac ASHISH Verified 02/15/23 06:38 Physical Exam Vitals: Vital Signs Temp Pulse Pulse Resp BP BP Pulse Ox 02/15/23 10:10 97.9 F 102 H 18 106/72 98 02/15/23 10:05 97.4 F L 108 H 16 92/59 92 L 02/15/23 07:00 152 H 20 128/78 93 L 02/15/23 06:45 152 H 20 121/90 94 L 02/15/23 06:33 98.1 F 153 H 18 121/90 97 Intake and Output 02/14/23 02/15/23 02/15/23 22:59 06:59 14:59 Output Total 200 Balance -200 Output: Urine 200 Straight 200 Other: Weight 82.645 kg Results 02/15/23 06:48 02/15/23 11:36 Cardiac Enzymes 02/15/23 02/15/23 02/15/23 Range/Units 06:48 06:48 08:49 AST 271 H (14-36) U/L Troponin I 0.048 H* 0.056 H* (0.000-0.034) ng/mL Coagulation 02/15/23 Range/Units 06:48 PT 17.1 H (10.0-12.5) sec APTT 24.8 (22.0-30.0) sec CBC 02/15/23 Range/Units 06:48 WBC 12.9 H (3.8-10.6) k/uL RBC 4.61 (3.80-5.40) m/uL Hgb 12.4 (11.4-16.0) gm/dL Hct 40.2 (34.0-46.0) % Plt Count 279 (150-450) k/uL Comprehensive Metabolic Panel 02/15/23 02/15/23 Range/Units 06:48 08:14 Sodium 134 L (137-145) mmol/L Potassium 6.3 H* 6.5 H* (3.5-5.1) mmol/L Chloride 100 (98-107) mmol/L Carbon Dioxide 15 L (22-30) mmol/L BUN 31 H (7-17) mg/dL Creatinine 1.10 H (0.52-1.04) mg/dL Glucose 128 H (74-99) mg/dL Calcium 9.1 (8.4-10.2) mg/dL AST 271 H (14-36) U/L ALT 139 H (4-34) U/L Alkaline Phosphatase 191 H (38-126) U/L Total Protein 6.3 (6.3-8.2) g/dL Albumin 3.0 L (3.5-5.0) g/dL Current Medications Generic Name Dose Route Start Last Admin Trade Name Freq PRN Reason Stop Dose Admin Acetaminophen 650 mg 02/15/23 08:22 Acetaminophen Tab 325 Mg Tab PO Q6HR PRN Mild Pain or Fever > 100.5 Diltiazem HCl 125 mg/ Sodium 125 mls @ 5 mls/hr 02/15/23 06:45 02/15/23 07:03 Chloride IV 5 mg/hr .Q24H CATARINO 5 mls/hr Administration 5 MG/HR Naloxone HCl 0.2 mg 02/15/23 08:22 Naloxone 0.4 Mg/Ml 1 Ml Vial IV Q2M PRN Opioid Reversal Ondansetron HCl 4 mg 02/15/23 08:22 Ondansetron 4 Mg/2 Ml Vial IVP Q8HR PRN Nausea And Vomiting Intake and Output 02/14/23 02/15/23 02/15/23 22:59 06:59 14:59 Output Total 200 Balance -200 Output: Urine 200 Straight 200 Other: Weight 82.645 kg 02/15/23 06:48 02/15/23 08:14
[2023-02-15] MEDS ORDERED: ZINC OXIDE PASTE (Z-GUARD) 1 APPLIC APPLIC TOPICAL PRN (16:00)
[2023-02-15] MEDS: PSYLLIUM HUSK 100% 6 GM PACKET PO SCH (16:54)
[2023-02-15] MEDS: TRIAMCINOLONE 0.1% CREAM 80 GM TUBE TOPICAL SCH (23:31)
[2023-02-15] MEDS: NYSTATIN 100,000 UNIT/GM POWD 15 GM TOPICAL SCH (23:31)
[2023-02-16 03:39] VITALS: TEMP 97.5
[2023-02-16 06:51] LABS: African American GFR (CKD) 50 (>60 ml/min/1.73 sqM); Blood Urea Nitrogen 38 mg/dL (7-17); Carbon Dioxide 23 mmol/L (22-30); Chloride 100 mmol/L (98-107); Non-African American GFR(CKD) 43 (>60 ml/min/1.73 sqM)
[2023-02-16 07:03] LABS: Anion Gap 12 mmol/L; Calcium 9.1 mg/dL (8.4-10.2); Glucose 102 mg/dL (74-99); Potassium 4.8 mmol/L (3.5-5.1); Sodium 135 mmol/L (137-145)
[2023-02-16] MEDS ORDERED: FUROSEMIDE 20 MG TAB PO SCH (09:00)
[2023-02-16] MEDS ORDERED: POTASSIUM CHLORIDE ER 10 MEQ TAB.ER.PRT PO SCH (09:00)
[2023-02-16] MEDS: NYSTATIN 100,000 UNIT/GM POWD 15 GM TOPICAL SCH (09:03)
[2023-02-16] MEDS: TRIAMCINOLONE 0.1% CREAM 80 GM TUBE TOPICAL SCH (09:03)
[2023-02-16] MEDS: METOPROLOL TARTRATE 50 MG TAB PO SCH (09:03)
[2023-02-16] MEDS: PSYLLIUM HUSK 100% 6 GM PACKET PO SCH (09:04)
--- NOTE | 2023-02-16 10:51 | P.PN ---
Subjective Progress Note Date: 02/16/23 Consult reason: congestive heart failure History of present illness: HISTORY OF PRESENT ILLNESS: This is an 87-year-old female patient of Dr. Paredes with a past medical history significant for acute coronary syndrome secondary to embolization, cardiomy opathy, hypertension, hyperlipidemia, permanent atrial fibrillation, and congestive heart failure. We have been asked to see the patient in consultation for congestive heart failure exacerbation. Patient apparently has had diarrhea for the past 1 week for which the family describes as explosive. Over the past 3 days patient has had mental status changes and increasing weakness. This morning she could only stand and could not walk. Family decided to bring her into the emergency center for further evaluation. Patient was found to be in A. fib with RVR at 151 bpm and started on Cardizem bolus followed by a drip. She also was found to have severe hyperkalemia status post insulin, calcium g luconate, bicarb and lokelma. We have been asked to evaluate the patient for A. fib with RVR. Heart rate is now running 102 bpm. Patient was last hospitalized at the end of November at which time she had lost 20 pounds over a few weeks. Thoracentesis was recommended for moderate right-sided pleural effusion the family didn't climb and were considering hospice at that time. EKG reveals atrial fibrillation with mild RVR Chest xray cardiomegaly with mild prominence of pulmonary vascular markings and infiltrate evaluate for congestive heart failure. Moderate right pleural effusion. WBC 12.9, hemoglobin 12.4, platelet count 279. INR 1.7. Potassium 6.3 followed by 6.5 and now 5.2. Sodium 134, BUN 31 creatinine 1.1. Magnesium 1.9. AST 271, ALT 139, alkaline phosphatase 191. Troponin 0.048 and 0.056. ProBNP 2720. Influenza A, influenza B, RNC, Covid 19 not detected. Urinalysis negative for infection. Current home cardiac medications include Toprol-XL 25 mg at bedtime, potassium c hloride 20 mEq 4 times daily, Demadex 20 g daily. Most recent echocardiogram obtained in October 2022 at [facility] revealing ejection fraction 43% with global hypokinesia, trace aortic valve regurgitation, moderate tricuspid valve regurgitation and mild pulmonary hypertension Cardiac catheterization history: July 2022 at [facility] revealing acute coronary syndrome due to coronary embolism of the distal OM with 95% stenosis status post coronary thrombectomy with 0% residual stenosis. No evidence of underlying atherosclerotic coronary disease. 02/16 Yesterday, Cardizem drip was discontinued and patient was started also on Lopressor 50 g twice daily. A repeat potassium in the afternoon was 5.2 and this morning 4.8. Patient received a second dose of Lokelma Esterly afternoon. Patient seems to have more energy today. Blood pressure 103/68, heart rate in the 80s, afebrile, pulse ox 92% on room air. Patient has a follow-up appointment already scheduled on 02/[address] Paredes. We will plan on her keeping this appointment. PHYSICAL EXAM: VITAL SIGNS: Reviewed. GENERAL: Well-developed in no acute distress. HEENT: Head is normocephalic. Pupils are equal, round. Sclerae anicteric. Mucous membranes of the mouth are moist. Neck supple. No JVD or thyromegaly LUNGS: Respirations even and unlabored. Lungs essentially clear to auscultation bilaterally. HEART: Irregular rate and rhythm. S1 and S2 heard. ABDOMEN: Soft. Nondistended. Nontender. EXTREMITIES: Normal range of motion. No clubbing or cyanosis. Peripheral pulses intact. Minimal bilateral lower extremity edema ASSESSMENT: Mental status change Weakness Hyperkalemia Dehydration Moderate right-sided pleural effusion Abnormal troponins, flat, not suggestive of acute coronary syndrome Chronic heart failure with reduced ejection fraction, 43% History of ACS due to embolization of distal OM with 95% stenosis with thrombectomy Permanent atrial fibrillation, not on anticoagulation on an outpatient basis secondary to history of rectal bleeding per family Hypertension Hyperlipidemia Hypokalemia PLAN: No need to repeat echocardiogram as this was performed in October 2022 Start patient on Lasix 20 mg daily with plan to continue this at home versus torsemide Add potassium 10 mEq twice daily Patient is cleared from cardiology for discharge and may follow up as scheduled. Recommend repeat blood work on 02/20. Nurse practitioner note has been reviewed by physician. Signing provider agrees with the documented findings, assessment, and plan of care. Objective - Vital Signs Vital signs: Vital Signs Temp 97.5 F L 02/16/23 03:33 Pulse 85 02/16/23 03:33 Resp 18 02/16/23 03:33 BP 103/68 02/16/23 03:33 Pulse Ox 92 L 02/16/23 08:12 FiO2 Intake & Output 02/15/23 02/16/23 02/16/23 18:59 06:59 18:59 Intake Total 705 Output Total 200 350 0 Balance 505 -350 0 Weight 82.645 kg 82.5 kg Intake: Oral 705 Output: Urine 200 350 0 Straight 200 Other: Voiding Method Incontinent External Catheter # Bowel Movements 4 - Labs CBC & Chem 7: 02/15/23 06:48 02/16/23 06:02 Labs: Abnormal Lab Results - Last 24 Hours (Table) 02/15/23 02/15/23 02/15/23 Range/Units 08:14 08:49 09:02 Sodium (137-145) mmol/L Potassium 6.5 H* (3.5-5.1) mmol/L BUN (7-17) mg/dL Creatinine (0.52-1.04) mg/dL Glucose (74-99) mg/dL POC Glucose (mg/dL) 121 H (70-110) mg/dL Troponin I 0.056 H* (0.000-0.034) ng/mL 02/15/23 02/15/23 02/16/23 Range/Units 11:36 11:36 06:02 Sodium 135 L (137-145) mmol/L Potassium 5.2 H (3.5-5.1) mmol/L BUN 38 H (7-17) mg/dL Creatinine 1.15 H (0.52-1.04) mg/dL Glucose 102 H (74-99) mg/dL POC Glucose (mg/dL) (70-110) mg/dL Troponin I 0.062 H* (0.000-0.034) ng/mL
[2023-02-16 11:37] VITALS: BP 89/51; PULSE 82; RESP 17; BMI 29.3
--- NOTE | 2023-02-16 17:08 | P.HPIM ---
History of Present Illness H&P Date: 02/16/23 Chief Complaint: Hyperkalemia,CHF History and Physical and Discharge Summary This is a 87-year-old female with past medical history significant for CAD,[place], cardiomyopathy, CHF, permanent atrial fibrillation, atrial flutter, hypertension, hyperlipidemia, presented to the ER with worsening dyspnea hyperkalemia. Daughter reports patient had explosive diarrhea 1 week, developed the mental status changes and increased weakness towards the last 3 days. Home care nurse reported potassium low, notified PCPs office instructed to give additional potassium. Daughter complied and also decided that she would also hold her mom's Lasix. Potassium on admission 6.3, BUN 31, creatinine 1.1. Received hyperkalemic cocktail including lokelma. On admission patient was also discovered to be in A. fib with RVR heart rates in the 150s, bolused and started on Cardizem drip. EKG reported atrial fibrillation with RVR, chest x-ray reported cardiomegaly with mild prominence of pulmonary vascular markings and infiltrate, moderate right pleural effusion ( on prior admission in November 2022 thoracentesis was recommended for moderate right-sided pleural effusion, patient's family declined thoracentesis, initially considered hospice but then chose to proceed with subacute rehab). Afebrile. Admission labs:WBC 12.9, hemoglobin 12.4, platelets 279. INR 1.7. Potassium 6.3, 6.5 ,5.2 and currently 4.8. Sodium 134, BUN 31 creatinine 1.1. Magnesium 1.9. T bili 2.8, AST 271, ALT 139, alkaline phos 191. ProBNP 2720. Troponin 0.048, 0.056 and 0.062. I nfluenza A, B, RSV, Covid 19 not detected. UA negative. Cardizem drip was discontinued yesterday and started on Lopressor. Significant clinical improvement. This morning, daughter states patient is at baseline. Heart rate controlled/Vital signs stable. Cleared by cardiology for discharge. Review of Systems ROS Statement: Those systems with pertinent positive or pertinent negative responses have been documented in the HPI. ROS Other: All systems not noted in ROS Statement are negative. 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 Last Myocardial Infarction Date:: august 13, 2022 History of Any Multi-Drug Resistant Organisms: None Reported Past Surgical History: Adenoidectomy, Heart Catheterization, Tonsillectomy Additional Past Surgical History / Comment(s): had blood clot removed from aorta in July of this year Past Anesthesia/Blood Transfusion Reactions: No Reported Reaction Past Psychological History: No Psychological Hx Reported Smoking Status: Never smoker Past Alcohol Use History: None Reported Past Drug Use History: None Reported Medications and Allergies Home Medications Medication Instructions Recorded Confirmed Type Triamcinolone 0.1% Cream [Kenalog 1 applic TOPICAL TID each 12/31/22 02/15/23 Rx 0.1% Cream] Zinc Oxide 1 applic TOPICAL QID PRN #30 gm 12/31/22 02/15/23 Rx Furosemide [Lasix] 20 mg PO DAILY #30 tab 02/16/23 Rx Metoprolol Tartrate [Lopressor] 50 mg PO BID #60 tab 02/16/23 Rx Nystatin 100,000 Unit/gm Powd 1 applic TOPICAL BID each 02/16/23 Rx [Mycostatin Powder] Potassium Chloride ER [K-Dur 10] 10 meq PO BID #60 tab 02/16/23 Rx Psyllium Husk 100% [Metamucil 6 gm PO DAILY packet 02/16/23 Rx Packet] Allergies Allergy/AdvReac Type Severity Reaction Status Date / Time codeine Allergy Unknown Verified 02/15/23 06:38 ticagrelor [From Brilinta] AdvReac ASHISH Verified 02/15/23 06:38 Physical Exam Vitals: Vital Signs Temp Pulse Pulse Resp BP BP Pulse Ox 02/16/23 11:27 82 17 89/51 95 02/16/23 09:00 92 15 82/59 93 L 02/16/23 08:12 92 L 02/16/23 03:33 97.5 F L 85 18 103/68 92 L 02/16/23 01:32 84 18 02/16/23 00:00 97.3 F L 84 18 84/51 93/72 94 L 02/15/23 20:00 86 18 02/15/23 19:53 97.5 F L 86 18 92/61 93 L 02/15/23 16:50 90 18 90/61 94 L Intake and Output 02/16/23 02/16/23 02/16/23 06:59 14:59 22:59 Output Total 350 0 Balance -350 0 Output: Urine 350 0 Other: Voiding Method Incontinent Incontinent External Catheter External Catheter Weight 82.5 kg 82.5 kg PHYSICAL EXAM: VITAL SIGNS: As above GENERAL: Sitting up in bed, no acute distress, [place] HEENT: Normocephalic Conjunctivae normal. eyes normal. NECK: Supple, No JVD. No thyroid enlargement. No LNs CARDIOVASCULAR: S1, S2.irregular. No murmur RESPIRATION: Unlabored, essentially clear with bilateral bases diminished No rhonchi or crackles. No bronchial breathing. ABDOMEN: Soft, nondistended, nontender . No guarding. no masses palpable. No ascites, No hepatosplenomegaly.Bowel sounds heard. LEGS: Trace edema PSYCHIATRY: Alert and oriented X2, mood and affect normal. NERVOUS SYSTEM: Cranial N 2-12 grossly normal. Skin: Warm and dry, no rash Results CBC & Chem 7: 02/15/23 06:48 02/16/23 06:02 Labs: Abnormal Lab Results - Last 24 Hours (Table) 02/16/23 Range/Units 06:02 Sodium 135 L (137-145) mmol/L BUN 38 H (7-17) mg/dL Creatinine 1.15 H (0.52-1.04) mg/dL Glucose 102 H (74-99) mg/dL Thrombosis Risk Factor Assmnt - Choose All That Apply Each Factor Represents 1 point: Acute [place], Heart failure (<1month) Each Risk Factor Represents 2 Points: Patient confined to bed Each Risk Factor Represents 3 Points: Age 75 years or older Thrombosis Risk Factor Assessment Total Risk Factor Score: 7 Thrombosis Risk Factor Assessment Level: High Risk Assessment and Plan Assessment: Atrial fibrillation with RVR, patient with history of permanent atrial fibrillation not on anticoagulation secondary to history of rectal bleeding Dyspnea, secondary to the above, moderate right-sided pleural effusion, acute CHF systolic dysfunction secondary to fluid overload. Family decided to hold patient's Lasix at home. Hyperkalemia secondary to dehydration, plus giving supplement and holding Lasix at the same time. Dehydration secondary to diarrhea Acute kidney injury secondary to all the above Acute Metabolic encephalopathy secondary to the above and electrolyte abnorm. Increased generalized weakness secondary to all the above Abnormal troponins, not suggestive of ACS as per cardiology Chronic systolic CHF, EF 43% Elevated troponins, not suggestive of ACS as per cardiology CAD, history of [place] Obesity, BMI 29 Plan: Continue on current medication regime ,monitoring and symptomatic treatment. Cleared by cardiology for discharge. Patient will be discharged home with home care today in a stable condition with guarded prognosis. Close monitoring of electrolytes and renal function with recheck of BMP in 3 days with PCP. Discharge Medication List Triamcinolone 0.1% Cream [Kenalog 0.1% Cream] 1 applic TOPICAL TID each 12/31/22 [Rx] Zinc Oxide 1 applic TOPICAL QID PRN #30 gm 12/31/22 [Rx] Furosemide [Lasix] 20 mg PO DAILY #30 tab 02/16/23 [Rx] Metoprolol Tartrate [Lopressor] 50 mg PO BID #60 tab 02/16/23 [Rx] Nystatin 100,000 Unit/gm Powd [Mycostatin Powder] 1 applic TOPICAL BID each 02/16/23 [Rx] Potassium Chloride ER [K-Dur 10] 10 meq PO BID #60 tab 02/16/23 [Rx] Psyllium Husk 100% [Metamucil Packet] 6 gm PO DAILY packet 02/16/23 [Rx] The impression and plan of care has been dictated as directed. : I performed a history and examination of this patient, discussed the same with the dictator. I agree with the dictator's note ,documented as a scribe. Any additional findings or plans will be noted.
== END 2023-02-16 14:11 | disposition home health service (06) | DRG 308 ==
LOC: EC 06:31 → 3SCARD 08:24
PROVIDERS: ADMIT Family Medicine; ATTEND Family Medicine
DX: I48.21 Permanent atrial fibrillation (principal); G93.41 Metabolic encephalopathy; I50.23 Acute on chronic systolic (congestive) heart failure; N17.9 Acute kidney failure, unspecified; I48.92 Unspecified atrial flutter; I42.9 Cardiomyopathy, unspecified; Z20.822 Contact with and (suspected) exposure to COVID-19; E87.5 Hyperkalemia; I11.0 Hypertensive heart disease with heart failure; E66.9 Obesity, unspecified; E87.6 Hypokalemia; E78.5 Hyperlipidemia, unspecified; E86.0 Dehydration; E87.70 Fluid overload, unspecified; R19.7 Diarrhea, unspecified; Z68.29 Body mass index [BMI] 29.0-29.9, adult; R74.01 Elevation of levels of liver transaminase levels; I25.2 Old myocardial infarction; I25.10 Atherosclerotic heart disease of native coronary artery without angina pectoris; Z79.899 Other long term (current) drug therapy; Z88.5 Allergy status to narcotic agent
CPT/HCPCS: 36415; 71046; 80048; 80053; 81001; 83735; 83880; 84132; 84484; 85025; 85610; 85730; 87636; 93005; 94760; 96365; 96366; 96368; 96375; 99285

== ENCOUNTER → 2023-02-23 | Outpatient (CLI) | payer MEDICARE ==
[2023-02-23 18:40] LABS: HCT 37.1 % (37.2-46.3); HGB 11.2 g/dL (12.0-15.0); MCH 26.1 pg (27.0-32.0); MCHC 30.2 g/dL (32.0-37.0); MCV 86.5 FL (80.0-97.0); NRBC Per 100 WBC 0 X 10*3/uL (0.00-0.01); Platelet Count 240 X 10*3/uL (140-440); RBC 4.29 X 10*6/uL (4.10-5.20); RDW 23.8 % (11.5-14.5); WBC 8.01 X 10*3/uL (4.50-10.00)
[2023-02-23 19:02] LABS: ALT 111 U/L (8-44); AST 33 U/L (13-35); Albumin 3.2 g/dL (3.8-4.9); Alkaline Phosphatase 178 U/L (41-126); BUN/Creat Ratio 29.89 Ratio (12.00-20.00); Blood Urea Nitrogen 26.9 mg/dL (9.0-27.0); Calcium 9.2 mg/dL (8.7-10.3); Carbon Dioxide 19.2 mmol/L (21.6-31.8); Chloride 105 mmol/L (96-109); Globulin 3.2 g/dL (1.6-3.3); Glucose 122 mg/dL (70-110); Sodium 136 mmol/L (135-145); Total Bilirubin 1.3 mg/dL (0.3-1.2); Total Protein 6.4 g/dL (6.2-8.2)
== END | disposition home or self-care (01) ==
LOC: LABWHC1 15:17
PROVIDERS: ATTEND Family Medicine
DX: I50.9 Heart failure, unspecified (principal); E87.5 Hyperkalemia
CPT/HCPCS: 36415; 80053; 85027

== ENCOUNTER → 2023-03-02 | Outpatient (CLI) | payer MEDICARE ==
[2023-03-02 15:32] LABS: BUN/Creat Ratio 25.89 Ratio (12.00-20.00); Blood Urea Nitrogen 23.3 mg/dL (9.0-27.0); Carbon Dioxide 20.8 mmol/L (21.6-31.8); Chloride 102 mmol/L (96-109); Glucose 104 mg/dL (70-110); Potassium 4.5 mmol/L (3.5-5.5); Sodium 136 mmol/L (135-145)
== END | disposition home or self-care (01) ==
LOC: LABWHC1 08:07
PROVIDERS: ATTEND Internal Medicine Interventional Cardiology
DX: N18.9 Chronic kidney disease, unspecified (principal)
CPT/HCPCS: 36415; 80048

== ENCOUNTER 2023-03-19 12:34 | Inpatient (IN) | payer MEDICARE ==
--- NOTE | 2023-03-19 12:47 | ED ---
Weakness HPI - General Stated complaint: Weakness Time Seen by Provider: 03/19/23 12:43 Source: RN notes reviewed, old records reviewed, Caregiver Limitations: no limitations - History of Present Illness Initial comments: This 87-year-old female to the emergency department today. She presents today for evaluation regards to severe shortness of breath. Increasing shortness of breath for a few days now decreased activity level inability to tolerate activities of daily living. Patient brings to the ER today with history of CHF and increased weight gain over the last few days MD Complaint: generalized weakness (Or shortness of breath), lack of energy, difficulty walking Location: generalized Severity: severe Severity scale (1-10): 10 Quality: constant Consistency: constant Improves with: none Worsens with: none Context: history of similar Associated Symptoms: shortness of breath - Related Data Home Medications Medication Instructions Recorded Confirmed Ascorbic Acid [Vitamin C] 500 mg PO BID 03/19/23 03/19/23 B-Core 1 dose PO BID 03/19/23 03/19/23 Cardio Plus 1 dose PO BID 03/19/23 03/19/23 Chlorophyll 1 dose PO BID 03/19/23 03/19/23 Lifeblood 1 dose PO BID 03/19/23 03/19/23 Nystatin 100,000 Unit/gm Oint 1 applic TOPICAL BID 03/19/23 03/19/23 [Mycostatin Oint] Nystatin 100,000 Unit/gm Powd 1 applic TOPICAL BID PRN 03/19/23 03/19/23 [Mycostatin Powder] Potassium Chloride ER [K-Dur 20] 20 meq PO BID@0500,1100 03/19/23 03/19/23 Pro-T 1 dose PO BID 03/19/23 03/19/23 Renafood 1 dose PO BID 03/19/23 03/19/23 Therafood 1 dose PO BID 03/19/23 03/19/23 Triamcinolone 0.1% Cream [Kenalog 1 applic TOPICAL BID 03/19/23 03/19/23 0.1% Cream] Previous Rx's Medication Instructions Recorded Acetaminophen Tab [Tylenol] 650 mg PO Q6HR PRN tab 03/24/23 Metoprolol Tartrate [Lopressor] 25 mg PO TID #90 tab 03/24/23 Spironolactone [Aldactone] 25 mg PO DAILY #30 tab 03/24/23 Torsemide [Demadex] 40 mg PO DAILY #60 tab 03/24/23 Allergies Allergy/AdvReac Type Severity Reaction Status Date / Time codeine Allergy Unknown Verified 03/19/23 15:30 ticagrelor [From Brilinta] AdvReac ASHISH Verified 03/19/23 15:30 Review of Systems ROS Statement: Those systems with pertinent positive or pertinent negative responses have been documented in the HPI. ROS Other: All systems not noted in ROS Statement are negative. Past Medical History Past Medical History: Atrial Flutter, Hyperlipidemia, Hypertension, Myocardial Infarction ([place]) Additional Past Medical History / Comment(s): "blood clot in aorta" according to the daughter. Last Myocardial Infarction Date:: august 13, 2022 History of Any Multi-Drug Resistant Organisms: None Reported Past Surgical History: Adenoidectomy, Heart Catheterization, Tonsillectomy Additional Past Surgical History / Comment(s): had blood clot removed from aorta in July of this year Past Anesthesia/Blood Transfusion Reactions: No Reported Reaction Past Psychological History: No Psychological Hx Reported Smoking Status: Never smoker Past Alcohol Use History: None Reported Past Drug Use History: None Reported - Past Family History Mother Family Medical History: No Reported History Father Family Medical History: Myocardial Infarction ([place]) General Exam General appearance: alert, in no apparent distress, anxious, in distress Head exam: Present: atraumatic, normocephalic, normal inspection Eye exam: Present: normal appearance, PERRL, EOMI. Absent: scleral icterus, conjunctival injection, periorbital swelling ENT exam: Present: normal exam, mucous membranes moist Neck exam: Present: normal inspection. Absent: tenderness, meningismus, lymphadenopathy Respiratory exam: Present: normal lung sounds bilaterally, wheezes, decreased breath sounds, prolonged expiratory. Absent: respiratory distress, rales, rhonchi, stridor Cardiovascular Exam: Present: tachycardia, irregular rhythm, normal heart sounds. Absent: systolic murmur, diastolic murmur, rubs, gallop, clicks GI/Abdominal exam: Present: soft, normal bowel sounds. Absent: distended, tenderness, guarding, rebound, rigid Extremities exam: Present: normal inspection, full ROM, normal capillary refill. Absent: tenderness, pedal edema, joint swelling, calf tenderness Back exam: Present: normal inspection Neurological exam: Present: alert, oriented X3, CN II-XII intact Psychiatric exam: Present: normal affect, normal mood Skin exam: Present: warm, dry, intact, normal color. Absent: rash Course Vital Signs 03/19/23 03/19/23 03/19/23 12:45 12:55 13:59 Temperature 97.9 F Pulse Rate 124 H 121 H Pulse Rate [ Pulse Oximetery ] Respiratory 18 Rate Blood Pressure 109/93 Blood Pressure [Right Arm Sitting] O2 Sat by Pulse 94 L Oximetry 03/19/23 03/19/23 03/19/23 14:08 14:45 19:51 Temperature Pulse Rate 131 H 110 H 101 H Pulse Rate [ Pulse Oximetery ] Respiratory 20 18 16 Rate Blood Pressure 109/87 93/56 Blood Pressure [Right Arm Sitting] O2 Sat by Pulse 95 97 Oximetry 03/19/23 20:30 Temperature 97.5 F L Pulse Rate Pulse Rate [ 97 Pulse Oximetery ] Respiratory 22 Rate Blood Pressure Blood Pressure 109/76 [Right Arm Sitting] O2 Sat by Pulse 96 Oximetry - Reevaluation(s) Reevaluation #1: 03/19/23 15:49 Records reviewed Reevaluation #2: 03/19/23 15:49 Patient symptoms are unchanged Reevaluation #3: 03/19/23 15:49 Patient informed results and questions answered Reevaluation #4: 03/19/23 13:28 Was pt. sent in by a medical professional or institution (Dr. PA, BASIC SCIENCES PROFESSOR, urgent care, hospital, or senior care...) When possible be specific @ -no Did you speak to anyone other than the patient for history (EMS, parent, family, police, friend...)? What history was obtained from this source @ -no Did you review nursing and triage notes (agree or disagree)? Why? @ -agree Are old charts reviewed (outside hosp., previous admission, EMS record, old EKG, old radiological studies, urgent care reports/EKG's, senior care records)? Report findings @ -yes Differential Diagnosis (chest pain, altered mental status, abdominal pain women, abdominal pain men, vaginal bleeding, weakness, fever, dyspnea, syncope, headache, dizziness, GI bleed, back pain, seizure, CVA, palpatations, mental health, musculoskeletal)? @ -prior EKG interpreted by me (3pts min.). @ -yes X-rays interpreted by me (1pt min.). @ -yes positive for right-sided pleural effusion CT interpreted by me (1pt min.). @ -no U/S interpreted by me (1pt. min.). @ -no What testing was considered but not performed or refused? (CT, X-rays, U/S, labs)? Why? @ -none What meds were considered but not given or refused? Why? @ -none Did you discuss the management of the patient with other professionals (professionals i.e. , PA, BASIC SCIENCES PROFESSOR, lab, RT, psych nurse, forensic social worker, sprinkler installer, teacher, medical scientific officer, case hardener)? Give summary @ -no Was smoking cessation discussed for >3mins.? @ -no Was critical care preformed (if so, how long)? @ -yes31 Were there social determinants of health that impacted care today? How? (Homele ssness, low income, unemployed, alcoholism, drug addiction, transportation, low edu. Level, literacy, decrease access to med. care, shelter, rehab)? @ -none Was there de-escalation of care discussed even if they declined (Discuss DNR or withdrawal of care, Hospice)? DNR status @ -no What co-morbidities impacted this encounter? (DM, HTN, Smoking, COPD, CAD, Cancer, CVA, ARF, Chemo, Hep., AIDS, mental health diagnosis, sleep apnea, morbid obesity)? @ -none Was patient admitted / discharged? Hospital course, mention meds given and route, prescriptions, significant lab abnormalities, going to OR and other pertinent info. @ - 87 male presenting in significant distress atrial fibrillation with RVR, significant pleural effusion and respiratory distress. Patient will be admitted for significant supportive care Admitted Undiagnosed new problem with uncertain prognosis? @ -no Drug Therapy requiring intensive monitoring for toxicity (Heparin, Nitro, Insulin, Cardizem)? @ -no Were any procedures done? @ -no Diagnosis/symptom? @ -Right-sided pleural effusion, atrial fibrillation with RVR, dyspnea Acute, or Chronic, or Acute on Chronic? @ -Acute Uncomplicated (without systemic symptoms) or Complicated (systemic symptoms)? @ -Complicated Side effects of treatment? @ -no Exacerbation, Progression, or Severe Exacerbation? @ -exacerbation Poses a threat to life or bodily function? How? (Chest pain, [place], [place], pneumonia, PE, COPD, DKA, ARF, appy, cholecystitis, CVA, Diverticulitis, Homicidal, Suicidal, threat to staff... and all critical care pts) @ -yes significant pleural effusion Reevaluation #5: 03/19/23 15:50 Differential Dyspnea: Coronary syndrome, arrhythmia, tamponade, asthma, COPD, pulmonary embolism, pneumonia, pneumothorax, pulmonary effusion, anaphylaxis, diabetic ketoacidosis, flailed chest, pulmonary contusion, diaphragmatic rupture, anemia, neuromuscular, this is not meant to be an all-inclusive list. - Consultations Consultation #1: Spoke with [facility] were agrees to admit this patient EKG Findings - EKG Comments: EKG Findings:: EKG shows atrial fibrillation with RVR 142 QRS 107 QTC 378 - EKG Results: EKG: interpreted by ARMANDO Medical Decision Making - Medical Decision Making 87 male presenting in significant distress atrial fibrillation with RVR, significant pleural effusion and respiratory distress. Patient will be admitted for significant supportive care - Lab Data Result diagrams: 03/22/23 07:32 03/24/23 07:33 Lab Results 03/19/23 03/19/23 03/19/23 Range/Units 13:38 13:38 13:38 WBC 8.9 (3.8-10.6) k/uL RBC 4.65 (3.80-5.40) m/uL Hgb 13.1 (11.4-16.0) gm/dL Hct 42.6 (34.0-46.0) % MCV 91.7 (80.0-100.0) fL MCH 28.2 (25.0-35.0) pg MCHC 30.8 L (31.0-37.0) g/dL RDW 19.9 H (11.5-15.5) % Plt Count 253 (150-450) k/uL MPV 8.2 Neutrophils % 68 % Lymphocytes % 18 % Monocytes % 9 % Eosinophils % 2 % Basophils % 1 % Neutrophils # 6.1 (1.3-7.7) k/uL Lymphocytes # 1.7 (1.0-4.8) k/uL Monocytes # 0.8 (0-1.0) k/uL Eosinophils # 0.1 (0-0.7) k/uL Basophils # 0.1 (0-0.2) k/uL Hypochromasia Marked Anisocytosis Slight PT 14.8 H (10.0-12.5) sec INR 1.4 H (<1.2) APTT 26.1 (22.0-30.0) sec Sodium 137 (137-145) mmol/L Potassium 5.6 H (3.5-5.1) mmol/L Chloride 106 (98-107) mmol/L Carbon Dioxide 23 (22-30) mmol/L Anion Gap 8 mmol/L BUN 39 H (7-17) mg/dL Creatinine 1.01 (0.52-1.04) mg/dL Est GFR (CKD-EPI)AfAm 58 (>60 ml/min/1.73 sqM) Est GFR (CKD-EPI)NonAf 50 (>60 ml/min/1.73 sqM) Glucose 150 H (74-99) mg/dL Lactic Ac Sepsis Rflx Plasma Lactic Acid Arturo (0.7-2.0) mmol/L Calcium 9.1 (8.4-10.2) mg/dL Phosphorus 3.6 (2.5-4.5) mg/dL Magnesium 2.2 (1.6-2.3) mg/dL Total Bilirubin 1.6 H (0.2-1.3) mg/dL AST 37 H (14-36) U/L ALT 26 (4-34) U/L Alkaline Phosphatase 204 H (38-126) U/L Troponin I (0.000-0.034) ng/mL NT-Pro-B Natriuret Pep pg/mL Total Protein 6.9 (6.3-8.2) g/dL Albumin 3.2 L (3.5-5.0) g/dL TSH 3.910 (0.465-4.680) mIU/L 03/19/23 03/19/23 03/19/23 Range/Units 13:38 13:38 14:40 WBC (3.8-10.6) k/uL RBC (3.80-5.40) m/uL Hgb (11.4-16.0) gm/dL Hct (34.0-46.0) % MCV (80.0-100.0) fL MCH (25.0-35.0) pg MCHC (31.0-37.0) g/dL RDW (11.5-15.5) % Plt Count (150-450) k/uL MPV Neutrophils % % Lymphocytes % % Monocytes % % Eosinophils % % Basophils % % Neutrophils # (1.3-7.7) k/uL Lymphocytes # (1.0-4.8) k/uL Monocytes # (0-1.0) k/uL Eosinophils # (0-0.7) k/uL Basophils # (0-0.2) k/uL Hypochromasia Anisocytosis PT (10.0-12.5) sec INR (<1.2) APTT (22.0-30.0) sec Sodium (137-145) mmol/L Potassium (3.5-5.1) mmol/L Chloride (98-107) mmol/L Carbon Dioxide (22-30) mmol/L Anion Gap mmol/L BUN (7-17) mg/dL Creatinine (0.52-1.04) mg/dL Est GFR (CKD-EPI)AfAm (>60 ml/min/1.73 sqM) Est GFR (CKD-EPI)NonAf (>60 ml/min/1.73 sqM) Glucose (74-99) mg/dL Lactic Ac Sepsis Rflx Plasma Lactic Acid Arturo 2.5 H* (0.7-2.0) mmol/L Calcium (8.4-10.2) mg/dL Phosphorus (2.5-4.5) mg/dL Magnesium (1.6-2.3) mg/dL Total Bilirubin (0.2-1.3) mg/dL AST (14-36) U/L ALT (4-34) U/L Alkaline Phosphatase (38-126) U/L Troponin I 0.013 (0.000-0.034) ng/mL NT-Pro-B Natriuret Pep 1290 pg/mL Total Protein (6.3-8.2) g/dL Albumin (3.5-5.0) g/dL TSH (0.465-4.680) mIU/L 03/19/23 Range/Units 14:56 WBC (3.8-10.6) k/uL RBC (3.80-5.40) m/uL Hgb (11.4-16.0) gm/dL Hct (34.0-46.0) % MCV (80.0-100.0) fL MCH (25.0-35.0) pg MCHC (31.0-37.0) g/dL RDW (11.5-15.5) % Plt Count (150-450) k/uL MPV Neutrophils % % Lymphocytes % % Monocytes % % Eosinophils % % Basophils % % Neutrophils # (1.3-7.7) k/uL Lymphocytes # (1.0-4.8) k/uL Monocytes # (0-1.0) k/uL Eosinophils # (0-0.7) k/uL Basophils # (0-0.2) k/uL Hypochromasia Anisocytosis PT (10.0-12.5) sec INR (<1.2) APTT (22.0-30.0) sec Sodium (137-145) mmol/L Potassium (3.5-5.1) mmol/L Chloride (98-107) mmol/L Carbon Dioxide (22-30) mmol/L Anion Gap mmol/L BUN (7-17) mg/dL Creatinine (0.52-1.04) mg/dL Est GFR (CKD-EPI)AfAm (>60 ml/min/1.73 sqM) Est GFR (CKD-EPI)NonAf (>60 ml/min/1.73 sqM) Glucose (74-99) mg/dL Lactic Ac Sepsis Rflx Y Plasma Lactic Acid Arturo (0.7-2.0) mmol/L Calcium (8.4-10.2) mg/dL Phosphorus (2.5-4.5) mg/dL Magnesium (1.6-2.3) mg/dL Total Bilirubin (0.2-1.3) mg/dL AST (14-36) U/L ALT (4-34) U/L Alkaline Phosphatase (38-126) U/L Troponin I (0.000-0.034) ng/mL NT-Pro-B Natriuret Pep pg/mL Total Protein (6.3-8.2) g/dL Albumin (3.5-5.0) g/dL TSH (0.465-4.680) mIU/L - EKG Data -: EKG Interpreted by Me - Radiology Data Radiology results: report reviewed (Significant chest x-ray shows significant right-sided pleural effusion), image reviewed Critical Care Time Critical Care Time: Yes Total Critical Care Time: 31 Disposition Clinical Impression: CHF exacerbation, LAM (acute kidney injury), Elevated troponin, Pleural effusion, right, Atrial fibrillation with rapid ventricular response Disposition: ADMITTED IP TO THIS HOSP Condition: Stable Is patient prescribed a controlled substance at d/c from ED?: No Time of Disposition: 15:45
[2023-03-19] MEDS ORDERED: SODIUM CHLORIDE 0.9% 1,000 ML IV STA (12:50)
[2023-03-19] MEDS ORDERED: IPRATROPIUM-ALBUTEROL 3 ML NEB INHALATION STA (13:19)
[2023-03-19 13:46] LABS: Anisocytosis Slight; Basophils # (A) 0.1 k/uL (0-0.2); Basophils % (A) 1 %; Eosinophils # (A) 0.1 k/uL (0-0.7); Eosinophils % (A) 2 %; HCT 42.6 % (34.0-46.0); HGB 13.1 gm/dL (11.4-16.0); Hypochromasia Marked; Lymphocytes # (A) 1.7 k/uL (1.0-4.8); Lymphocytes % (A) 18 %; MCH 28.2 pg (25.0-35.0); MCHC 30.8 g/dL (31.0-37.0); MCV 91.7 fL (80.0-100.0); Mean Platelet Volume 8.2; Monocytes # (A) 0.8 k/uL (0-1.0); Monocytes % (A) 9 %; Neutrophils # (A) 6.1 k/uL (1.3-7.7); Neutrophils % (A) 68 %; Platelet Count 253 k/uL (150-450); RBC 4.65 m/uL (3.80-5.40); RDW 19.9 % (11.5-15.5); WBC 8.9 k/uL (3.8-10.6)
[2023-03-19] MEDS ORDERED: DILTIAZEM 5 MG/ML 5 ML VIAL IVP STA (13:46)
[2023-03-19 13:55] LABS: INR 1.4 (<1.2); Partial Thromboplastin Time 26.1 sec (22.0-30.0); Prothrombin Time 14.8 sec (10.0-12.5)
--- NOTE | 2023-03-19 14:14 | XR ---
EXAMINATION TYPE: XR chest 1V DATE OF EXAM: 03/19/2023 COMPARISON: 02/15/2023 HISTORY: Shortness of breath TECHNIQUE: Single frontal view of the chest is obtained. FINDINGS: Moderate to large size right pleural effusion with consolidation. Heart is enlarged. Arthr opathy of the shoulders, degenerative change of the spine and diffuse osteopenia. No pneumothorax. No overt failure. IMPRESSION: 1. Moderate to large size right pleural effusion with basilar consolidation.
[2023-03-19 14:23] LABS: ALT 26 U/L (4-34); AST 37 U/L (14-36); African American GFR (CKD) 58 (>60 ml/min/1.73 sqM); Albumin 3.2 g/dL (3.5-5.0); Alkaline Phosphatase 204 U/L (38-126); Anion Gap 8 mmol/L; Blood Urea Nitrogen 39 mg/dL (7-17); Calcium 9.1 mg/dL (8.4-10.2); Carbon Dioxide 23 mmol/L (22-30); Chloride 106 mmol/L (98-107); Glucose 150 mg/dL (74-99); Magnesium 2.2 mg/dL (1.6-2.3); Non-African American GFR(CKD) 50 (>60 ml/min/1.73 sqM); Phosphorus 3.6 mg/dL (2.5-4.5); Potassium 5.6 mmol/L (3.5-5.1); Sodium 137 mmol/L (137-145); Total Bilirubin 1.6 mg/dL (0.2-1.3); Total Protein 6.9 g/dL (6.3-8.2)
[2023-03-19] MEDS ORDERED: ONDANSETRON 4 MG/2 ML VIAL IVP PRN (15:44)
[2023-03-19] MEDS ORDERED: MORPHINE SULFATE 4 MG/ML SYRINGE IV PRN (15:44)
[2023-03-19] MEDS ORDERED: NALOXONE 0.4 MG/ML 1 ML VIAL IV PRN (15:44)
[2023-03-19 23:17] LABS: Appearance,Urine Clear (Clear); Bacteria,Urine Rare /hpf; Bilirubin,Urine Negative (Negative); Blood,Urine Negative (Negative); Color,Urine Yellow; Glucose,Urine (UA) Negative (Negative); Ketones,Urine Negative (Negative); Leukocyte Esterase,Urine Moderate (Negative); Mucus,Urine Rare /hpf; Nitrite,Urine Negative (Negative); Protein,Urine 1+ (Negative); RBC,Urine 3 /hpf (0-5); Specific Gravity,Urine 1.019 (1.001-1.035); Squamous Epithelial Cell,Urine 1 /hpf (0-4); WBC,Urine 11 /hpf (0-5)
[2023-03-20] MEDS: PANTOPRAZOLE 40 MG/10 ML VIAL IV SCH (08:30)
[2023-03-20 09:00] LABS: Anisocytosis Slight; Basophils # (A) 0.1 k/uL (0-0.2); Basophils % (A) 1 %; Eosinophils # (A) 0.2 k/uL (0-0.7); Eosinophils % (A) 2 %; HCT 38.9 % (34.0-46.0); HGB 11.8 gm/dL (11.4-16.0); Hypochromasia Marked; Lymphocytes # (A) 1.9 k/uL (1.0-4.8); Lymphocytes % (A) 23 %; MCH 28.2 pg (25.0-35.0); MCHC 30.3 g/dL (31.0-37.0); MCV 93.2 fL (80.0-100.0); Macrocytosis Slight; Mean Platelet Volume 8.1; Monocytes # (A) 0.7 k/uL (0-1.0); Monocytes % (A) 8 %; Neutrophils # (A) 5.2 k/uL (1.3-7.7); Neutrophils % (A) 63 %; Platelet Count 263 k/uL (150-450); RBC 4.17 m/uL (3.80-5.40); RDW 19.9 % (11.5-15.5); WBC 8.2 k/uL (3.8-10.6)
[2023-03-20 09:30] LABS: ALT 24 U/L (4-34); AST 32 U/L (14-36); African American GFR (CKD) 72 (>60 ml/min/1.73 sqM); Albumin 2.9 g/dL (3.5-5.0); Alkaline Phosphatase 169 U/L (38-126); Anion Gap 8 mmol/L; Blood Urea Nitrogen 36 mg/dL (7-17); Calcium 8.9 mg/dL (8.4-10.2); Carbon Dioxide 21 mmol/L (22-30); Chloride 108 mmol/L (98-107); Glucose 123 mg/dL (74-99); Magnesium 2.1 mg/dL (1.6-2.3); Non-African American GFR(CKD) 62 (>60 ml/min/1.73 sqM); Phosphorus 3.7 mg/dL (2.5-4.5); Potassium 5.1 mmol/L (3.5-5.1); Sodium 137 mmol/L (137-145); Total Bilirubin 2.5 mg/dL (0.2-1.3); Total Protein 6.4 g/dL (6.3-8.2)
[2023-03-20] MEDS: METOPROLOL TARTRATE 25 MG TAB PO SCH ×2 (10:10→19:44)
[2023-03-20] MEDS: FUROSEMIDE 10 MG/ML 4 ML VIAL IV SCH ×3 (10:10→23:22)
--- NOTE | 2023-03-20 12:35 | P.CNPUL ---
History of Present Illness Consult date: 03/20/23 Reason for consult: dyspnea, pleural effusion History of present illness: 87-year-old. Patient has less for worsening shortness of breath and a large right-sided pleural effusion. Her last hospitalization for the same was in December 2022. At that time, thoracentesis was offered in the family declined due to her age and comorbidities. I was consulted for the same today. I see that the patient is on 3 L of Oxymizer nasal cannula. The patient is known to have CAD, CHF, hypertension hyperlipidemia and chronic atrial fibrillation. The patient is coming in for increased lower extremity edema, presacral edema and shortness of breath. The patient has been taken Demadex on outpatient basis. Her last cardiac catheterization was done in July 2022. This was done at [facility]. The patient has distal OM lesion 95% and the patient is undergone coronary thrombectomy with no significant residual disease. She denies having any chest pain. No cough or sputum production. She is not in favor of doing a thoracentesis of this point in time. She wants to be treated medically. He had DNR/DNI CODE STATUS. Review of Systems CONSTITUTIONAL: Denies fever or chills. reports weakness, the patient is very hard of hearing HEENT: Denies blurred vision, vision changes, or eye pain. Denies hemoptysis CARDIOVASCULAR: Denies chest pain. Denies orthopnea. Denies PND. Denies palpitations RESPIRATORY: Reports chronic shortness of breath GASTROINTESTINAL: Denies abdominal pain. Denies nausea or vomiting. HEMATOLOGIC: Denies bleeding disorders. GENITOURINARY: Denies any blood in urine. SKIN: Denies pruitis. Denies rash. 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" according to the daughter, history of rectal bleeding r/t hemrrhoids Last Myocardial Infarction Date:: august 13, 2022 History of Any Multi-Drug Resistant Organisms: None Reported Past Surgical History: Adenoidectomy, Heart Catheterization, Tonsillectomy Additional Past Surgical History / Comment(s): had blood clot removed from aorta in July of this year Past Anesthesia/Blood Transfusion Reactions: No Reported Reaction Past Psychological History: No Psychological Hx Reported Smoking Status: Never smoker Past Alcohol Use History: None Reported Past Drug Use History: None Reported - Past Family History Mother Family Medical History: No Reported History Father Family Medical History: Myocardial Infarction ([place]) Medications and Allergies Home Medications Medication Instructions Recorded Confirmed Type Ascorbic Acid [Vitamin C] 500 mg PO BID 03/19/23 03/19/23 History B-Core 1 dose PO BID 03/19/23 03/19/23 History Cardio Plus 1 dose PO BID 03/19/23 03/19/23 History Chlorophyll 1 dose PO BID 03/19/23 03/19/23 History Lifeblood 1 dose PO BID 03/19/23 03/19/23 History Metoprolol Succinate (ER) [Toprol 25 mg PO DAILY 03/19/23 03/19/23 History Xl] Nystatin 100,000 Unit/gm Oint 1 applic TOPICAL BID 03/19/23 03/19/23 History [Mycostatin Oint] Nystatin 100,000 Unit/gm Powd 1 applic TOPICAL BID PRN 03/19/23 03/19/23 History [Mycostatin Powder] Potassium Chloride ER [K-Dur 20] 10 meq PO DAILY@1700 03/19/23 03/19/23 History Potassium Chloride ER [K-Dur 20] 20 meq PO BID@0500,1100 03/19/23 03/19/23 History Pro-T 1 dose PO BID 03/19/23 03/19/23 History Renafood 1 dose PO BID 03/19/23 03/19/23 History Therafood 1 dose PO BID 03/19/23 03/19/23 History Torsemide [Demadex] 20 mg PO DAILY 03/19/23 03/19/23 History Triamcinolone 0.1% Cream [Kenalog 1 applic TOPICAL BID 03/19/23 03/19/23 History 0.1% Cream] Allergies Allergy/AdvReac Type Severity Reaction Status Date / Time codeine Allergy Unknown Verified 03/19/23 15:30 ticagrelor [From Brilinta] AdvReac ASHISH Verified 03/19/23 15:30 Physical Exam Vitals: Vital Signs Temp Pulse Pulse Resp BP BP Pulse Ox 03/20/23 03:36 97.7 F 112 H 18 108/72 97 03/19/23 23:28 97.8 F 112 H 20 105/69 94 L 03/19/23 20:30 97.5 F L 97 22 109/76 96 03/19/23 19:51 101 H 16 93/56 97 03/19/23 14:45 110 H 18 109/87 95 03/19/23 14:08 131 H 20 03/19/23 13:59 121 H 03/19/23 12:55 124 H 94 L 03/19/23 12:45 97.9 F 18 109/93 Intake and Output 03/19/23 03/20/23 03/20/23 22:59 06:59 14:59 Intake Total 240 Balance 240 Intake: Oral 240 Other: Voiding Method Diaper Diaper External Catheter External Catheter # Voids 2 # Bowel Movements 1 Weight 86.636 kg GENERAL EXAM: Alert, pleasant 87-year-old female, up in a chair, 3 liters comfortable in no apparent distress. HEAD: Normocephalic. EYES: Normal reaction of pupils, equal size. NOSE: Clear with pink turbinates. THROAT: No erythema or exudates. NECK: No masses, no JVD. CHEST: No chest wall deformity. LUNGS: Equal air entry with crackles, diminished in the bilateral bases right greater than left. CVS: Irregular rhythm consistent with atrial fibrillation and the patient has a murmur 3/6 over the left apex. ABDOMEN: No hepatosplenomegaly, normal bowel sounds, no guarding or rigidity. SPINE: No scoliosis or deformity SKIN: No rashes CENTRAL NERVOUS SYSTEM: No focal deficits, tone is normal in all 4 extremities. EXTREMITIES: There is no peripheral edema. No clubbing, no cyanosis. Peripheral pulses are intact. Results - Laboratory Findings CBC and BMP: 03/20/23 08:44 03/20/23 08:44 PT/INR, D-dimer PT 14.8 sec (10.0-12.5) H 03/19/23 13:38 INR 1.4 (<1.2) H 03/19/23 13:38 Abnormal lab findings: Abnormal Labs 03/19/23 03/19/23 03/19/23 13:38 13:38 13:38 MCHC 30.8 L RDW 19.9 H PT 14.8 H INR 1.4 H Potassium 5.6 H BUN 39 H Glucose 150 H Plasma Lactic Acid Arturo Total Bilirubin 1.6 H AST 37 H Alkaline Phosphatase 204 H Albumin 3.2 L Urine Protein Ur Leukocyte Esterase Urine WBC Urine Bacteria Urine Mucus 03/19/23 03/19/23 03/20/23 13:38 22:50 08:44 MCHC 30.3 L RDW 19.9 H PT INR Potassium BUN Glucose Plasma Lactic Acid Arturo 2.5 H* Total Bilirubin AST Alkaline Phosphatase Albumin Urine Protein 1+ H Ur Leukocyte Esterase Moderate H Urine WBC 11 H Urine Bacteria Rare H Urine Mucus Rare H - Diagnostic Findings Chest x-ray: image reviewed Assessment and Plan Plan: Acute on chronic dyspnea likely on the basis of CHF. The patient has obvious signs of fluid overload with positive JVD, presacral edema, and a large right- sided pleural effusion. Acute hypoxic respiratory failure currently on 3 L of oxygen by nasal cannula Acute on chronic systolic congestive heart failure Chronic systolic congestive heart failure Coronary artery disease with previous thrombectomy of OM, as the patient has an acute coronary syndrome 3 years back due to embolization to the distal OM and posterior thrombectomy, the patient had no residual stenosis Chronic atrial fibrillation, not on anticoagulation therapy because of previous history of rectal bleeding, slightly tachycardic on today's evaluation Benign essential hypertension Dyslipidemia Impaired hearing Plan I offered thoracentesis. The family and the patient were not in favor that the procedure done. We'll start the patient on Lasix 40 g IV every 8 hours Restart metoprolol 25 mg twice a day No anticoagulants for now for the above-mentioned reasons. The patient has not been taken anticoagulation no patient basis. Cardiology consultation Titrate Lexapro to maintain saturation above 90% currently on 3 L We'll continue to follow DNR/DNI CODE STATUS
--- NOTE | 2023-03-20 13:13 | P.HPIM ---
History of Present Illness H&P Date: 03/20/23 History of present illness; patient is a 87-year-old lady with past medical hist ory significant for acute coronary syndrome secondary to embolization, cardiomyopathy, hypertension, hyperlipidemia, permanent atrial fibrillation, and congestive heart failure who presented to the ER because of worsening shortness of breath. Patient stated that for the last few days she has been noticing that she's getting short of breath on exertion. Patient unable to carry on normal activities of daily living. States he gets short of breath on minimal exertion. Denies any chest pain. Denied palpitations. Patient also complaining of swelling of lower extremities. Patient was complaining of weight gain. Complaining of orthopnea but denies PND. There was no complain of any fever or chills. Denies any nausea, vomiting abdominal pain. Because of the symptoms, patient pr esented to the ER. Initial lab work done in the ER showed WBC 8.9, hemoglobin 13.1, platelet count 253, sodium 137, potassium 5.6, BUN 39, creatinine 1.01, glucose 150, lactate 2.5, bilirubin 1.6, before meals 37, alk phos 204 UA done showed moderate amount of leukocyte Estrace, urine WBC 11 EKG done in the ER showed heart rate of 122, irregular in rhythm , no ST segment elevation or depression seen, no T-wave inversions seen. Chest x-ray done in the ER moderate to large sized right pleural effusion with basilar consolidation Patient admitted to internal medicine service REVIEW OF SYSTEMS: CONSTITUTIONAL: No fever, no malaise, no fatigue. HEENT: No recent visual problems or hearing problems. Denied any sore throat. CARDIOVASCULAR: As mentioned in HPI PULMONARY: As mentioned in HPI GASTROINTESTINAL: No diarrhea, no nausea, no vomiting, no abdominal pain. NEUROLOGICAL: No headaches, no weakness, no numbness. HEMATOLOGICAL: Denies any bleeding or petechiae. GENITOURINARY: Denies any burning micturition, frequency, or urgency. MUSCULOSKELETAL/RHEUMATOLOGICAL: Denies any joint pain, swelling, or any muscle pain. ENDOCRINE: Denies any polyuria or polydipsia. The rest of the 14-point review of systems is negative. PHYSICAL EXAMINATION: GENERAL: The patient is alert and oriented x3, not in any acute distress. Chronically ill-looking HEENT: Pupils are round and equally reacting to light. EOMI. No scleral icterus .extremely hard of hearing. CARDIOVASCULAR: S1 and S2 present. No murmurs, rubs, or gallops. PULMONARY: Diminished breath sounds at the right lung base ABDOMEN: Soft, nontender, nondistended, normoactive bowel sounds. No palpable organomegaly. MUSCULOSKELETAL: No joint swelling or deformity. EXTREMITIES: No cyanosis, clubbing, or pedal edema. NEUROLOGICAL: Gross neurological examination did not reveal any focal deficits. SKIN: No rashes. Assessment and plan Acute hypoxic respiratory failure Moderate right-sided pleural effusion Acute on Chronic heart failure with reduced ejection fraction, 43% Hyperkalemia Lactic acidosis History of ACS due to embolization of distal OM with 95% stenosis with thrombectomy Permanent atrial fibrillation, not on anticoagulation on an outpatient basis secondary to history of rectal bleeding per family Hypertension Hyperlipidemia Monitor vital signs Monitor CBC Monitor CMP Continue telemetry monitoring Encourage use of I-S Strict I's and O's Daily weights Continue IV Lasix 40 mg every 8 hourly Continue Lopressor, not on anticoagulation because of history of GI bleeding Resume home meds Consult cardiology Consult pulmonology Labs and medication were reviewed.. Continue same treatment. Continue with symptomatic treatment. Resume home medication. Monitor labs and vitals. DVT and GI prophylaxis. Further recommendations as per clinical course of the patient Dictation was produced using [employer] dictation software. please excuse any grammatical, word or spelling errors. Past Medical History Past Medical History: Atrial Flutter, Hyperlipidemia, Hypertension, Myocardial Infarction ([place]) Additional Past Medical History / Comment(s): "blood clot in aorta" according to the daughter, history of rectal bleeding r/t hemrrhoids Last Myocardial Infarction Date:: august 13, 2022 History of Any Multi-Drug Resistant Organisms: None Reported Past Surgical History: Adenoidectomy, Heart Catheterization, Tonsillectomy Additional Past Surgical History / Comment(s): had blood clot removed from aorta in July of this year Past Anesthesia/Blood Transfusion Reactions: No Reported Reaction Past Psychological History: No Psychological Hx Reported Smoking Status: Never smoker Past Alcohol Use History: None Reported Past Drug Use History: None Reported - Past Family History Mother Family Medical History: No Reported History Father Family Medical History: Myocardial Infarction ([place]) Medications and Allergies Home Medications Medication Instructions Recorded Confirmed Type Ascorbic Acid [Vitamin C] 500 mg PO BID 03/19/23 03/19/23 History B-Core 1 dose PO BID 03/19/23 03/19/23 History Cardio Plus 1 dose PO BID 03/19/23 03/19/23 History Chlorophyll 1 dose PO BID 03/19/23 03/19/23 History Lifeblood 1 dose PO BID 03/19/23 03/19/23 History Metoprolol Succinate (ER) [Toprol 25 mg PO DAILY 03/19/23 03/19/23 History Xl] Nystatin 100,000 Unit/gm Oint 1 applic TOPICAL BID 03/19/23 03/19/23 History [Mycostatin Oint] Nystatin 100,000 Unit/gm Powd 1 applic TOPICAL BID PRN 03/19/23 03/19/23 History [Mycostatin Powder] Potassium Chloride ER [K-Dur 20] 10 meq PO DAILY@1700 03/19/23 03/19/23 History Potassium Chloride ER [K-Dur 20] 20 meq PO BID@0500,1100 03/19/23 03/19/23 History Pro-T 1 dose PO BID 03/19/23 03/19/23 History Renafood 1 dose PO BID 03/19/23 03/19/23 History Therafood 1 dose PO BID 03/19/23 03/19/23 History Torsemide [Demadex] 20 mg PO DAILY 03/19/23 03/19/23 History Triamcinolone 0.1% Cream [Kenalog 1 applic TOPICAL BID 03/19/23 03/19/23 History 0.1% Cream] Allergies Allergy/AdvReac Type Severity Reaction Status Date / Time codeine Allergy Unknown Verified 03/19/23 15:30 ticagrelor [From Brilinta] AdvReac ASHISH Verified 03/19/23 15:30 Physical Exam Vitals: Vital Signs Temp Pulse Pulse Resp BP BP Pulse Ox 03/20/23 08:00 97.5 F L 122 H 18 120/91 95 03/20/23 03:36 97.7 F 112 H 18 108/72 97 03/19/23 23:28 97.8 F 112 H 20 105/69 94 L 03/19/23 20:30 97.5 F L 97 22 109/76 96 03/19/23 19:51 101 H 16 93/56 97 03/19/23 14:45 110 H 18 109/87 95 03/19/23 14:08 131 H 20 03/19/23 13:59 121 H 03/19/23 12:55 124 H 94 L 03/19/23 12:45 97.9 F 18 109/93 Intake and Output 03/19/23 03/20/23 03/20/23 22:59 06:59 14:59 Intake Total 240 30 Balance 240 30 Intake: Oral 240 30 Other: Voiding Method Diaper Diaper Diaper External Catheter External Catheter External Catheter # Voids 2 # Bowel Movements 1 Weight 86.636 kg Results CBC & Chem 7: 03/20/23 08:44 03/20/23 08:44 Labs: Abnormal Lab Results - Last 24 Hours (Table) 03/19/23 03/19/23 03/19/23 Range/Units 13:38 13:38 13:38 MCHC 30.8 L (31.0-37.0) g/dL RDW 19.9 H (11.5-15.5) % PT 14.8 H (10.0-12.5) sec INR 1.4 H (<1.2) Potassium 5.6 H (3.5-5.1) mmol/L Chloride (98-107) mmol/L Carbon Dioxide (22-30) mmol/L BUN 39 H (7-17) mg/dL Glucose 150 H (74-99) mg/dL Plasma Lactic Acid Arturo (0.7-2.0) mmol/L Total Bilirubin 1.6 H (0.2-1.3) mg/dL AST 37 H (14-36) U/L Alkaline Phosphatase 204 H (38-126) U/L Albumin 3.2 L (3.5-5.0) g/dL Urine Protein (Negative) Ur Leukocyte Esterase (Negative) Urine WBC (0-5) /hpf Urine Bacteria (None) /hpf Urine Mucus (None) /hpf 03/19/23 03/19/23 03/20/23 Range/Units 13:38 22:50 08:44 MCHC 30.3 L (31.0-37.0) g/dL RDW 19.9 H (11.5-15.5) % PT (10.0-12.5) sec INR (<1.2) Potassium (3.5-5.1) mmol/L Chloride (98-107) mmol/L Carbon Dioxide (22-30) mmol/L BUN (7-17) mg/dL Glucose (74-99) mg/dL Plasma Lactic Acid Arturo 2.5 H* (0.7-2.0) mmol/L Total Bilirubin (0.2-1.3) mg/dL AST (14-36) U/L Alkaline Phosphatase (38-126) U/L Albumin (3.5-5.0) g/dL Urine Protein 1+ H (Negative) Ur Leukocyte Esterase Moderate H (Negative) Urine WBC 11 H (0-5) /hpf Urine Bacteria Rare H (None) /hpf Urine Mucus Rare H (None) /hpf 03/20/23 Range/Units 08:44 MCHC (31.0-37.0) g/dL RDW (11.5-15.5) % PT (10.0-12.5) sec INR (<1.2) Potassium (3.5-5.1) mmol/L Chloride 108 H (98-107) mmol/L Carbon Dioxide 21 L (22-30) mmol/L BUN 36 H (7-17) mg/dL Glucose 123 H (74-99) mg/dL Plasma Lactic Acid Arturo (0.7-2.0) mmol/L Total Bilirubin 2.5 H (0.2-1.3) mg/dL AST (14-36) U/L Alkaline Phosphatase 169 H (38-126) U/L Albumin 2.9 L (3.5-5.0) g/dL Urine Protein (Negative) Ur Leukocyte Esterase (Negative) Urine WBC (0-5) /hpf Urine Bacteria (None) /hpf Urine Mucus (None) /hpf Thrombosis Risk Factor Assmnt - Choose All That Apply Any of the Below Risk Factors Present?: Yes Each Factor Represents 1 point: Medical pt on bed rest, Obesity (BMI >25), Serious lung disease incl. pneumonia (< 1month), Swollen legs (current) Other Risk Factors: Yes Each Risk Factor Represents 3 Points: Age 75 years or older Other congenital or acquired thrombophilia - If yes, enter type in comment: No Thrombosis Risk Factor Assessment Total Risk Factor Score: 7 Thrombosis Risk Factor Assessment Level: High Risk
--- NOTE | 2023-03-20 19:37 | P.CRDCN ---
History of Present Illness Consult date: 03/20/23 History of present illness: HISTORY OF PRESENTING ILLNESS 87-year-old with PMH of CAD, cardiac myopathy, hypertension, dyslipidemia, permanent atrial fibrillation, CHF presented to the hospital because of worsening shortness of breath over last few days. She gets short of breath with minimal activity. Initial lab work done in the ER showed WBC 8.9, hemoglobin 13.1, platelet count 253, sodium 137, potassium 5.6, BUN 39, creatinine 1.01, glucose 150, lactate 2.5, bilirubin 1.6, before meals 37, alk phos 204 UA done showed moderate amount of leukocyte Estrace, urine WBC 11 EKG done in the ER showed heart rate of 122, afib, Chest x-ray done in the ER moderate to large sized right pleural effusion with basilar consolidation Cardiac cath July 2022: [facility], distal OM 95% stenosis status post PCI REVIEW OF SYSTEMS 14 point review of system is negative except what is mentioned above in HPI. PHYSICAL EXAMINATION Neck: Mildly elevated JVD Lungs: Reduced air entry bilateral lung erickson Heart: Irregularly irregular,, S1-S2, no S3, no murmur or rub. Abdomen: Soft nontender, Extremities: No edema, intact distal pulses. Neuro: Alert, oritented, no focal deficits ASSESSMENT Shortness of breath Moderate right-sided pleural effusion, unchanged from last time Chronic heart failure with reduced ejection fraction, EF 40-45% CAD status post PCI to OM in 2022 Permanent atrial fibrillation not on anticoagulation due to rectal bleeding Hypertension Dyslipidemia PLAN IV Lasix 40 mg twice a day. Monitor renal function and urine output If no improvement in pleural effusion may need thoracentesis. We will hold Plavix in view of possible thoracentesis Continue aspirin Not on anticoagulation for a defibrillation due to prior GI bleeding Case discussed with family at bedside. Patient's family understands the overall long component. 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" according to the daughter, history of rectal bleeding r/t hemrrhoids Last Myocardial Infarction Date:: august 13, 2022 History of Any Multi-Drug Resistant Organisms: None Reported Past Surgical History: Adenoidectomy, Heart Catheterization, Tonsillectomy Additional Past Surgical History / Comment(s): had blood clot removed from aorta in July of this year Past Anesthesia/Blood Transfusion Reactions: No Reported Reaction Past Psychological History: No Psychological Hx Reported Smoking Status: Never smoker Past Alcohol Use History: None Reported Past Drug Use History: None Reported - Past Family History Mother Family Medical History: No Reported History Father Family Medical History: Myocardial Infarction ([place]) Medications and Allergies Home Medications Medication Instructions Recorded Confirmed Type Ascorbic Acid [Vitamin C] 500 mg PO BID 03/19/23 03/19/23 History B-Core 1 dose PO BID 03/19/23 03/19/23 History Cardio Plus 1 dose PO BID 03/19/23 03/19/23 History Chlorophyll 1 dose PO BID 03/19/23 03/19/23 History Lifeblood 1 dose PO BID 03/19/23 03/19/23 History Metoprolol Succinate (ER) [Toprol 25 mg PO DAILY 03/19/23 03/19/23 History Xl] Nystatin 100,000 Unit/gm Oint 1 applic TOPICAL BID 03/19/23 03/19/23 History [Mycostatin Oint] Nystatin 100,000 Unit/gm Powd 1 applic TOPICAL BID PRN 03/19/23 03/19/23 History [Mycostatin Powder] Potassium Chloride ER [K-Dur 20] 10 meq PO DAILY@1700 03/19/23 03/19/23 History Potassium Chloride ER [K-Dur 20] 20 meq PO BID@0500,1100 03/19/23 03/19/23 History Pro-T 1 dose PO BID 03/19/23 03/19/23 History Renafood 1 dose PO BID 03/19/23 03/19/23 History Therafood 1 dose PO BID 03/19/23 03/19/23 History Torsemide [Demadex] 20 mg PO DAILY 03/19/23 03/19/23 History Triamcinolone 0.1% Cream [Kenalog 1 applic TOPICAL BID 03/19/23 03/19/23 History 0.1% Cream] Allergies Allergy/AdvReac Type Severity Reaction Status Date / Time codeine Allergy Unknown Verified 03/19/23 15:30 ticagrelor [From Brilinta] AdvReac ASHISH Verified 03/19/23 15:30 Physical Exam Vitals: Vital Signs Temp Pulse Pulse Resp BP BP Pulse Ox 03/20/23 15:46 97.8 F 106 H 16 122/86 94 L 03/20/23 11:28 117 H 16 111/77 93 L 03/20/23 08:00 97.5 F L 122 H 18 120/91 95 03/20/23 03:36 97.7 F 112 H 18 108/72 97 03/19/23 23:28 97.8 F 112 H 20 105/69 94 L 03/19/23 20:30 97.5 F L 97 22 109/76 96 03/19/23 19:51 101 H 16 93/56 97 Intake and Output 03/20/23 03/20/23 03/20/23 06:59 14:59 22:59 Intake Total 270 360 Output Total 225 1600 Balance 45 -1240 Intake: Oral 270 360 Output: Urine 225 1600 Other: Voiding Method Diaper Diaper External Catheter External Catheter # Voids 2 1 # Bowel Movements 1 1 1 Results 03/20/23 08:44 03/20/23 08:44 Cardiac Enzymes 03/19/23 03/20/23 Range/Units 20:33 08:44 AST 32 (14-36) U/L Troponin I <0.012 (0.000-0.034) ng/mL CBC 03/20/23 Range/Units 08:44 WBC 8.2 (3.8-10.6) k/uL RBC 4.17 (3.80-5.40) m/uL Hgb 11.8 (11.4-16.0) gm/dL Hct 38.9 (34.0-46.0) % Plt Count 263 (150-450) k/uL Comprehensive Metabolic Panel 03/20/23 Range/Units 08:44 Sodium 137 (137-145) mmol/L Potassium 5.1 (3.5-5.1) mmol/L Chloride 108 H (98-107) mmol/L Carbon Dioxide 21 L (22-30) mmol/L BUN 36 H (7-17) mg/dL Creatinine 0.85 (0.52-1.04) mg/dL Glucose 123 H (74-99) mg/dL Calcium 8.9 (8.4-10.2) mg/dL AST 32 (14-36) U/L ALT 24 (4-34) U/L Alkaline Phosphatase 169 H (38-126) U/L Total Protein 6.4 (6.3-8.2) g/dL Albumin 2.9 L (3.5-5.0) g/dL Current Medications Generic Name Dose Route Start Last Admin Trade Name Freq PRN Reason Stop Dose Admin Ascorbic Acid 500 mg 03/20/23 21:00 Ascorbic Acid 500 Mg Tab PO BID [facility] Aspirin 81 mg 03/20/23 19:45 Aspirin 81 Mg PO DAILY [facility]ARINO Furosemide 40 mg 03/20/23 10:00 03/20/23 15:28 Furosemide 10 Mg/Ml 4 Ml Vial IV 40 mg Q8HR CATARINO Administration Metoprolol Tartrate 25 mg 03/20/23 10:00 03/20/23 10:10 Metoprolol Tartrate 25 Mg Tab PO 25 mg BID CATARINO Administration Morphine Sulfate 4 mg 03/19/23 15:44 Morphine Sulfate 4 Mg/Ml Syringe IV Q4HR PRN Severe Pain (Scale 7 to 10) Naloxone HCl 0.2 mg 03/19/23 15:44 Naloxone 0.4 Mg/Ml 1 Ml Vial IV Q2M PRN Opioid Reversal Ondansetron HCl 4 mg 03/19/23 15:44 Ondansetron 4 Mg/2 Ml Vial IVP Q8HR PRN Nausea And Vomiting Pantoprazole Sodium 40 mg 03/20/23 09:00 03/20/23 08:30 Pantoprazole 40 Mg/10 Ml Vial IV 40 mg DAILY CATARINO Administration Intake and Output 03/20/23 03/20/23 03/20/23 06:59 14:59 22:59 Intake Total 270 360 Output Total 225 1600 Balance 45 -1240 Intake: Oral 270 360 Output: Urine 225 1600 Other: Voiding Method Diaper Diaper External Catheter External Catheter # Voids 2 1 # Bowel Movements 1 1 1 03/20/23 08:44 03/20/23 08:44
[2023-03-20] MEDS: ASPIRIN 81 MG PO SCH (19:44)
[2023-03-20] MEDS: ASCORBIC ACID 500 MG TAB PO SCH (19:44)
[2023-03-20] MEDS ORDERED: CLOPIDOGREL 75 MG TAB PO SCH (19:45)
[2023-03-21] MEDS ORDERED: ZINC OXIDE PASTE (Z-GUARD) 1 APPLIC TOPICAL PRN (05:34)
[2023-03-21] MEDS: FUROSEMIDE 10 MG/ML 4 ML VIAL IV SCH ×2 (09:02→15:23)
[2023-03-21] MEDS: PANTOPRAZOLE 40 MG/10 ML VIAL IV SCH (09:02)
[2023-03-21] MEDS: METOPROLOL TARTRATE 25 MG TAB PO SCH ×2 (09:03→21:48)
[2023-03-21] MEDS: ASPIRIN 81 MG PO SCH (09:03)
[2023-03-21] MEDS: ASCORBIC ACID 500 MG TAB PO SCH ×2 (09:06→21:48)
--- NOTE | 2023-03-21 12:37 | P.PN ---
Subjective Progress Note Date: 03/21/23 patient is a 87-year-old lady with past medical history significant for acute coronary syndrome secondary to embolization, cardiomyopathy, hypertension, hyperlipidemia, permanent atrial fibrillation, and congestive heart failure who presented to the ER because of worsening shortness of breath. Patient stated that for the last few days she has been noticing that she's getting short of breath on exertion. Patient unable to carry on normal activities of daily living. States he gets short of breath on minimal exertion. Denies any chest pain. Denied palpitations. Patient also complaining of swelling of lower extremities. Patient was complaining of weight gain. Complaining of orthopnea but denies PND. There was no complain of any fever or chills. Denies any nausea, vomiting abdominal pain. Because of the symptoms, patient presented to the ER. Initial lab work done in the ER showed WBC 8.9, hemoglobin 13.1, platelet count 253, sodium 137, potassium 5.6, BUN 39, creatinine 1.01, glucose 150, lactate 2.5, bilirubin 1.6, before meals 37, alk phos 204 UA done showed moderate amount of leukocyte Estrace, urine WBC 11 EKG done in the ER showed heart rate of 122, irregular in rhythm , no ST segment elevation or depression seen, no T-wave inversions seen. Chest x-ray done in the ER moderate to large sized right pleural effusion with basilar consolidation Patient admitted to internal medicine service 03/27. Patient seen and examined. States breathing has slightly improved. Labs done this morning showed WBC 8.2, hemoglobin 11.8, sodium 137 potassium 5.1, BUN 36, creatinine 0.85. Shortness of breath is improved. Currently on room air. REVIEW OF SYSTEMS: CONSTITUTIONAL: No fever, no malaise,. CARDIOVASCULAR: No chest pain, no palpitations, no syncope. PULMONARY: No shortness of breath, no cough, GASTROINTESTINAL: No diarrhea, no nausea, no vomiting, no abdominal pain. NEUROLOGICAL: No headaches, no weakness, PHYSICAL EXAMINATION: GENERAL: The patient is alert and oriented x3, not in any acute distress. Chronically ill-looking HEENT: Pupils are round and equally reacting to light. EOMI. No scleral icterus .extremely hard of hearing. CARDIOVASCULAR: S1 and S2 present. No murmurs, rubs, or gallops. PULMONARY: Diminished breath sounds at the right lung base ABDOMEN: Soft, nontender, nondistended, normoactive bowel sounds. No palpable organomegaly. MUSCULOSKELETAL: No joint swelling or deformity. EXTREMITIES: No cyanosis, clubbing, or pedal edema. NEUROLOGICAL: Gross neurological examination did not reveal any focal deficits. SKIN: No rashes. Assessment and plan Acute hypoxic respiratory failure Moderate right-sided pleural effusion Acute on Chronic heart failure with reduced ejection fraction, 43% Hyperkalemia Lactic acidosis History of ACS due to embolization of distal OM with 95% stenosis with thrombectomy Permanent atrial fibrillation, not on anticoagulation on an outpatient basis secondary to history of rectal bleeding per family Hypertension Hyperlipidemia Monitor vital signs Monitor CBC Monitor CMP Continue telemetry monitoring Encourage use of I-S Strict I's and O's Daily weights Continue IV Lasix 40 mg every 8 hourly Continue Lopressor, not on anticoagulation because of history of GI bleeding Cardiology following Pulmonary following, recommending doing thoracentesis but family and patient's not very keen for that Labs and medication were reviewed.. Continue same treatment. Continue with symptomatic treatment. Resume home medication. Monitor labs and vitals. DVT and GI prophylaxis. Further recommendations as per clinical course of the patient Dictation was produced using [employer] dictation software. please excuse any grammatical, word or spelling errors. Objective - Vital Signs Vital signs: Vital Signs Temp 97.4 F L 03/21/23 08:00 Pulse 117 H 03/21/23 08:00 Resp 18 03/21/23 08:00 BP 114/78 03/21/23 08:00 Pulse Ox 96 03/21/23 08:00 FiO2 Intake & Output 03/20/23 03/21/23 03/21/23 18:59 06:59 18:59 Intake Total 630 240 Output Total 1825 1250 600 Balance -1195 -1250 -360 Intake: Oral 630 240 Output: Urine 1825 1250 600 Other: Voiding Method Diaper Diaper Diaper External Catheter External Catheter External Catheter # Voids 1 2 # Bowel Movements 1 1 1 - Labs CBC & Chem 7: 03/20/23 08:44 03/20/23 08:44
--- NOTE | 2023-03-21 13:50 | P.PN ---
Subjective Progress Note Date: 03/21/23 87-year-old. Patient has less for worsening shortness of breath and a large right-sided pleural effusion. Her last hospitalization for the same was in December 2022. At that time, thoracentesis was offered in the family declined due to her age and comorbidities. I was consulted for the same today. I see that the patient is on 3 L of Oxymizer nasal cannula. The patient is known to have CAD, CHF, hypertension hyperlipidemia and chronic atrial fibrillation. The patient is coming in for increased lower extremity edema, presacral edema and shortness of breath. The patient has been taken Demadex on outpatient basis. Her last cardiac catheterization was done in July 2022. This was done at [facility]. The patient has distal OM lesion 95% and the patient is undergone coronary thrombectomy with no significant residual disease. She denies having any chest pain. No cough or sputum production. She is not in favor of doing a thoracentesis of this point in time. She wants to be treated medically. He had DNR/DNI CODE STATUS. On 03/21/2023, the patient is stable on room air oxygen. No significant respiratory difficulty speech is responding nicely to the diuretics and the patient is on Lasix 40 mg IV every 8 hours. Fluid balance is -2.7 L over the past 24 hours. She is also metoprolol 25 mg by mouth twice a day. Blood pressure is soft. The patient is not hypotensive. She remains in atrial fibrillation. A. fib is under better control for now. The patient was echoes at 8.2 with a hemoglobin 11.8. Awaiting labs from today. Yesterday's creatinine was 0.8 with a BUN of 35. UA was negative. Objective - Vital Signs Vital signs: Vital Signs Temp 98.1 F 03/21/23 03:27 Pulse 74 03/21/23 03:27 Resp 15 03/21/23 03:27 BP 96/61 03/21/23 03:27 Pulse Ox 94 L 03/21/23 03:27 FiO2 Intake & Output 03/20/23 03/21/23 03/21/23 18:59 06:59 18:59 Intake Total 630 Output Total 1825 1250 Balance -1195 -1250 Intake: Oral 630 Output: Urine 1825 1250 Other: Voiding Method Diaper Diaper External Catheter External Catheter # Voids 1 2 # Bowel Movements 1 1 - Exam GENERAL EXAM: Alert, pleasant 87-year-old female, up in a chair, room air oxygen comfortable in no apparent distress. HEAD: Normocephalic. EYES: Normal reaction of pupils, equal size. NOSE: Clear with pink turbinates. THROAT: No erythema or exudates. NECK: No masses, no JVD. CHEST: No chest wall deformity. LUNGS: Equal air entry with crackles, diminished in the bilateral bases right greater than left. CVS: Irregular rhythm consistent with atrial fibrillation and the patient has a murmur 3/6 over the left apex. ABDOMEN: No hepatosplenomegaly, normal bowel sounds, no guarding or rigidity. SPINE: No scoliosis or deformity SKIN: No rashes CENTRAL NERVOUS SYSTEM: No focal deficits, tone is normal in all 4 extremities. EXTREMITIES: There is no peripheral edema. No clubbing, no cyanosis. Peripheral pulses are intact. - Labs CBC & Chem 7: 03/20/23 08:44 03/20/23 08:44 Assessment and Plan Plan: Acute on chronic dyspnea likely on the basis of CHF. The patient has obvious signs of fluid overload with positive JVD, presacral edema, and a large right- sided pleural effusion. The patient is being subject diuretics and the patient is currently on Lasix 40 mg IV every 8 hours and she is producing excellent urine output Acute hypoxic respiratory failure , 3 L of oxygen by nasal cannula, improved and currently she is on room air Acute on chronic systolic congestive heart failure, improved Chronic systolic congestive heart failure Coronary artery disease with previous thrombectomy of OM, as the patient has an acute coronary syndrome 3 years back due to embolization to the distal OM and posterior thrombectomy, the patient had no residual stenosis Chronic atrial fibrillation, not on anticoagulation therapy because of previous history of rectal bleeding, slightly tachycardic on today's evaluation Benign essential hypertension Dyslipidemia Impaired hearing Plan I offered thoracentesis. The family and the patient were not in favor that the procedure done. Continue the patient on Lasix 40 g IV every 8 hours Continue metoprolol 25 mg twice a day No anticoagulants for now for the above-mentioned reasons. The patient has not been taken anticoagulation no patient basis. Cardiology consultation We'll continue to follow DNR/DNI CODE STATUS
--- NOTE | 2023-03-21 15:38 | P.PN ---
Subjective Progress Note Date: 03/21/23 Progress note Patient is stable. Denies any chest pain chest pressure. Blood pressure and heart rate in kidney function reviewed and are stable. Good urine output on IV diuretic HISTORY OF PRESENTING ILLNESS 87-year-old with PMH of CAD, cardiac myopathy, hypertension, dyslipidemia, permanent atrial fibrillation, CHF presented to the hospital because of worsening shortness of breath over last few days. She gets short of breath with minimal activity. Initial lab work done in the ER showed WBC 8.9, hemoglobin 13.1, platelet count 253, sodium 137, potassium 5.6, BUN 39, creatinine 1.01, glucose 150, lactate 2.5, bilirubin 1.6, before meals 37, alk phos 204 UA done showed moderate amount of leukocyte Estrace, urine WBC 11 EKG done in the ER showed heart rate of 122, afib, Chest x-ray done in the ER moderate to large sized right pleural effusion with basilar consolidation Cardiac cath July 2022: [facility], distal OM 95% stenosis status post PCI REVIEW OF SYSTEMS 14 point review of system is negative except what is mentioned above in HPI. PHYSICAL EXAMINATION Neck: Mildly elevated JVD Lungs: Reduced air entry bilateral lung erickson Heart: Irregularly irregular,, S1-S2, no S3, no murmur or rub. Abdomen: Soft nontender, Extremities: No edema, intact distal pulses. Neuro: Alert, oritented, no focal deficits ASSESSMENT Shortness of breath Moderate right-sided pleural effusion, unchanged from last time Chronic heart failure with reduced ejection fraction, EF 40-45% CAD status post PCI to OM in 2022 Permanent atrial fibrillation not on anticoagulation due to rectal bleeding Hypertension Dyslipidemia PLAN IV Lasix 40 mg twice a day. Monitor renal function and urine output If no improvement in pleural effusion may need thoracentesis. We will hold Plavix in view of possible thoracentesis Continue aspirin Not on anticoagulation for a defibrillation due to prior GI bleeding Case discussed with family at bedside. Patient's family understands the overall long component. There in favor of comfort measures and possible hospice. Family is contemplating if thoracentesis is a very painful procedure or not and if it would help her feel comfortable. Objective - Vital Signs Vital signs: Vital Signs Temp 97.4 F L 03/21/23 08:00 Pulse 115 H 03/21/23 12:00 Resp 16 03/21/23 12:00 BP 106/69 03/21/23 12:00 Pulse Ox 92 L 03/21/23 12:00 FiO2 Intake & Output 03/20/23 03/21/23 03/21/23 18:59 06:59 18:59 Intake Total 630 240 Output Total 1825 1250 1000 Balance -1195 -1250 -760 Weight 84.2 kg Intake: Oral 630 240 Output: Urine 1825 1250 1000 Other: Voiding Method Diaper Diaper Diaper External Catheter External Catheter External Catheter # Voids 1 2 # Bowel Movements 1 1 1 - Labs CBC & Chem 7: 03/20/23 08:44 03/20/23 08:44
[2023-03-21 16:26] LABS: Glucose,Whole Blood 174 mg/dL (70-110)
[2023-03-21 20:27] LABS: Glucose,Whole Blood 179 mg/dL (70-110)
[2023-03-22] MEDS: FUROSEMIDE 10 MG/ML 4 ML VIAL IV SCH ×4 (00:27→23:06)
[2023-03-22 06:15] LABS: Glucose,Whole Blood 105 mg/dL (70-110)
[2023-03-22 08:29] LABS: Anisocytosis Slight; Basophils % (A) 0 %; Eosinophils # (A) 0.1 k/uL (0-0.7); Eosinophils % (A) 1 %; HCT 35.6 % (34.0-46.0); HGB 11.3 gm/dL (11.4-16.0); Hypochromasia Slight; Lymphocytes # (A) 1.3 k/uL (1.0-4.8); Lymphocytes % (A) 17 %; MCH 28.3 pg (25.0-35.0); MCHC 31.8 g/dL (31.0-37.0); Monocytes # (A) 0.9 k/uL (0-1.0); Monocytes % (A) 11 %; Neutrophils # (A) 5.5 k/uL (1.3-7.7); Neutrophils % (A) 69 %; Platelet Count 246 k/uL (150-450); RDW 19.7 % (11.5-15.5)
[2023-03-22 08:50] LABS: ALT 20 U/L (4-34); AST 27 U/L (14-36); African American GFR (CKD) 80 (>60 ml/min/1.73 sqM); Albumin 2.7 g/dL (3.5-5.0); Alkaline Phosphatase 150 U/L (38-126); Anion Gap 8 mmol/L; Blood Urea Nitrogen 33 mg/dL (7-17); Calcium 8.3 mg/dL (8.4-10.2); Carbon Dioxide 32 mmol/L (22-30); Chloride 98 mmol/L (98-107); Glucose 100 mg/dL (74-99); Non-African American GFR(CKD) 70 (>60 ml/min/1.73 sqM); Sodium 138 mmol/L (137-145); Total Bilirubin 2.2 mg/dL (0.2-1.3); Total Protein 6.2 g/dL (6.3-8.2)
[2023-03-22] MEDS ORDERED: Potassium Replacement Protocol 1 EACH MISC MISCELLANE PRN (09:05)
[2023-03-22] MEDS ORDERED: Magnesium Replacement Protocol 1 EACH MISC MISCELLANE PRN (09:07)
[2023-03-22] MEDS: ASPIRIN 81 MG PO SCH (09:42)
[2023-03-22] MEDS: ASCORBIC ACID 500 MG TAB PO SCH ×2 (09:42→20:58)
[2023-03-22] MEDS: METOPROLOL TARTRATE 25 MG TAB PO SCH ×2 (09:42→20:58)
[2023-03-22] MEDS: PANTOPRAZOLE 40 MG/10 ML VIAL IV SCH (09:42)
[2023-03-22] MEDS: POTASSIUM CHLORIDE ER 20 MEQ TAB.ER PO SCH ×5 (09:43→16:54)
[2023-03-22] MEDS: ACETAMINOPHEN TAB 325 MG TAB PO PRN (09:44)
[2023-03-22 11:56] LABS: Glucose,Whole Blood 147 mg/dL (70-110)
[2023-03-22] MEDS: SPIRONOLACTONE 25 MG TAB PO SCH (13:00)
[2023-03-22] MEDS: MAGNESIUM SULFATE-D5W PMX 1 GM in DEXTROSE/WATER 1 100ML.BAG IVPB SCH ×2 (13:00→14:20)
--- NOTE | 2023-03-22 13:38 | P.PN ---
Subjective HISTORY OF PRESENT ILLNESS: This is an 87-year-old female who follows in the office with Dr. Paredes. Patient examined this morning. She is sitting up in the chair. Patient is complaining of leg cramps this morning. Patient's potassium was found to be low at 2.0. She is currently receiving supplementation. Telemetry reveals atrial fibrillation with controlled ventricular rate. PHYSICAL EXAM: VITAL SIGNS: Reviewed. GENERAL: Well-developed in no acute distress. NECK: Supple. No JVD or thyromegaly LUNGS: Respirations even and unlabored. Lungs essentially clear to auscultation bilaterally. HEART: Irregular rate and rhythm. S1 and S2 heard. EXTREMITIES: Normal range of motion. No clubbing or cyanosis. Peripheral pulses intact. 1+ bilateral lower extremity edema ASSESSMENT: Shortness of breath Moderate right-sided pleural effusion Chronic heart failure with reduced ejection fraction, EF 40-45% CAD status post PCI to OM in 2022, at [facility] Permanent atrial fibrillation not on anticoagulation due to rectal bleeding Hypertension Dyslipidemia Hypokalemia PLAN: Replace potassium Continue IV Lasix Daily weights, accurate I&O, monitor kidney function Add Aldactone 25 mg daily Patient is not on anticoagulation secondary to history of GI bleeding Further recommendations pending patient's course Nurse practitioner note has been reviewed by physician. Signing provider agrees with the documented findings, assessment, and plan of care. Objective - Vital Signs Vital signs: Vital Signs Temp 98 F 03/22/23 08:00 Pulse 97 03/22/23 08:00 Resp 16 03/22/23 08:00 BP 108/67 03/22/23 08:00 Pulse Ox 98 03/22/23 08:00 FiO2 Intake & Output 03/21/23 03/22/23 03/22/23 18:59 06:59 18:59 Intake Total 480 118 Output Total 1900 1600 Balance -1420 -1600 118 Weight 84.2 kg Intake: Oral 480 118 Output: Urine 1900 1600 Other: Voiding Method Diaper Diaper Diaper External Catheter External Catheter External Catheter # Bowel Movements 1 - Labs CBC & Chem 7: 03/22/23 07:32 03/22/23 07:32 Labs: Abnormal Lab Results - Last 24 Hours (Table) 03/21/23 03/21/23 03/22/23 Range/Units 16:24 20:22 07:32 Hgb 11.3 L (11.4-16.0) gm/dL RDW 19.7 H (11.5-15.5) % Potassium (3.5-5.1) mmol/L Carbon Dioxide (22-30) mmol/L BUN (7-17) mg/dL Glucose (74-99) mg/dL POC Glucose (mg/dL) 174 H 179 H (70-110) mg/dL Calcium (8.4-10.2) mg/dL Magnesium (1.6-2.3) mg/dL Total Bilirubin (0.2-1.3) mg/dL Alkaline Phosphatase (38-126) U/L Total Protein (6.3-8.2) g/dL Albumin (3.5-5.0) g/dL 03/22/23 03/22/23 03/22/23 Range/Units 07:32 07:32 11:51 Hgb (11.4-16.0) gm/dL RDW (11.5-15.5) % Potassium 2.0 L* (3.5-5.1) mmol/L Carbon Dioxide 32 H (22-30) mmol/L BUN 33 H (7-17) mg/dL Glucose 100 H (74-99) mg/dL POC Glucose (mg/dL) 147 H (70-110) mg/dL Calcium 8.3 L (8.4-10.2) mg/dL Magnesium 1.5 L (1.6-2.3) mg/dL Total Bilirubin 2.2 H (0.2-1.3) mg/dL Alkaline Phosphatase 150 H (38-126) U/L Total Protein 6.2 L (6.3-8.2) g/dL Albumin 2.7 L (3.5-5.0) g/dL
--- NOTE | 2023-03-22 14:34 | P.PN ---
Subjective Progress Note Date: 03/22/23 [id number] female admitted with acute on chronic CHF exacerbation, systolic dysfunction, multifactorial with large right-sided pleural effusion and multiple other medical issues. Family declined thoracentesis, patient continues on IV push diuretics. Potassium 2 and magnesium 1.5, receiving multiple supplements. Denies chest pain, palpitations or shortness of breath. Maintaining O2 sats in my 90s on room air currently. Objective - Vital Signs Vital signs: Vital Signs Temp 98 F 03/22/23 08:00 Pulse 97 03/22/23 08:00 Resp 16 03/22/23 08:00 BP 108/67 03/22/23 08:00 Pulse Ox 98 03/22/23 08:00 FiO2 Intake & Output 03/21/23 03/22/23 03/22/23 18:59 06:59 18:59 Intake Total 480 236 Output Total 1900 1600 500 Balance -0970 -1600 -314 Weight 84.2 kg Intake: Oral 480 236 Output: Urine 1900 1600 500 Other: Voiding Method Diaper Diaper Diaper External Catheter External Catheter External Catheter # Bowel Movements 1 - Exam PHYSICAL EXAM: VITAL SIGNS: As above GENERAL: Sitting up in chair, no acute distress, [place] HEENT: Normocephalic Conjunctivae normal. eyes normal. NECK: Supple, No JVD. No thyroid enlargement. No LNs CARDIOVASCULAR: S1, S2.irregular. Systolic murmur RESPIRATION: Unlabored, essentially clear with bilateral base crackles. ABDOMEN: Soft, nondistended, nontender . No guarding. no masses palpable. No ascites, No hepatosplenomegaly.Bowel sounds heard. LEGS: Positive edema PSYCHIATRY: Alert and oriented X2, mood and affect normal. NERVOUS SYSTEM: Cranial N 2-12 grossly normal. Skin: Warm and dry, no rash - Labs CBC & Chem 7: 03/22/23 07:32 03/22/23 07:32 Labs: Abnormal Lab Results - Last 24 Hours (Table) 03/21/23 03/21/23 03/22/23 Range/Units 16:24 20:22 07:32 Hgb 11.3 L (11.4-16.0) gm/dL RDW 19.7 H (11.5-15.5) % Potassium (3.5-5.1) mmol/L Carbon Dioxide (22-30) mmol/L BUN (7-17) mg/dL Glucose (74-99) mg/dL POC Glucose (mg/dL) 174 H 179 H (70-110) mg/dL Calcium (8.4-10.2) mg/dL Magnesium (1.6-2.3) mg/dL Total Bilirubin (0.2-1.3) mg/dL Alkaline Phosphatase (38-126) U/L Total Protein (6.3-8.2) g/dL Albumin (3.5-5.0) g/dL 03/22/23 03/22/23 03/22/23 Range/Units 07:32 07:32 11:51 Hgb (11.4-16.0) gm/dL RDW (11.5-15.5) % Potassium 2.0 L* (3.5-5.1) mmol/L Carbon Dioxide 32 H (22-30) mmol/L BUN 33 H (7-17) mg/dL Glucose 100 H (74-99) mg/dL POC Glucose (mg/dL) 147 H (70-110) mg/dL Calcium 8.3 L (8.4-10.2) mg/dL Magnesium 1.5 L (1.6-2.3) mg/dL Total Bilirubin 2.2 H (0.2-1.3) mg/dL Alkaline Phosphatase 150 H (38-126) U/L Total Protein 6.2 L (6.3-8.2) g/dL Albumin 2.7 L (3.5-5.0) g/dL Assessment and Plan Assessment: Dyspnea, secondary to moderate right-sided pleural effusion, acute on chronic CHF systolic dysfunction secondary to fluid overload. Acute hypoxic respiratory failure secondary to the above, improving Chronic atrial fibrillation not on anticoagulation secondary to history of rectal bleeding Hyperkalemia on admission Hypokalemia Hypomagnesemia Acute Metabolic encephalopathy secondary to the above and electrolyte abnorm. CAD, history of [place], status post PCI to OM in 2022 Benign essential hypertension Dyslipidemia Obesity, BMI 30 No code Plan:: Continue on current medication regime ,monitoring and symptomatic treatment. Diuretics as per pulmonary. Family declined thoracentesis. Magnesium and potassium supplementation ordered with repeat levels later this afternoon. Prognosis guarded given multiple complex medical issues. The impression and plan of care has been dictated as directed. : I performed a history and examination of this patient, discussed the same with the dictator. I agree with the dictator's note ,documented as a scribe. Any additional findings or plans will be noted.
--- NOTE | 2023-03-22 15:27 | P.PN ---
Subjective Progress Note Date: 03/22/23 87-year-old. Patient has less for worsening shortness of breath and a large right-sided pleural effusion. Her last hospitalization for the same was in December 2022. At that time, thoracentesis was offered in the family declined due to her age and comorbidities. I was consulted for the same today. I see that the patient is on 3 L of Oxymizer nasal cannula. The patient is known to have CAD, CHF, hypertension hyperlipidemia and chronic atrial fibrillation. The patient is coming in for increased lower extremity edema, presacral edema and shortness of breath. The patient has been taken Demadex on outpatient basis. Her last cardiac catheterization was done in July 2022. This was done at [facility] [place]. The patient has distal OM lesion 95% and the patient is undergone coronary thrombectomy with no significant residual disease. She denies having any chest pain. No cough or sputum production. She is not in favor of doing a thoracentesis of this point in time. She wants to be treated medically. He had DNR/DNI CODE STATUS. On 03/21/2023, the patient is stable on room air oxygen. No significant respiratory difficulty speech is responding nicely to the diuretics and the patient is on Lasix 40 mg IV every 8 hours. Fluid balance is -2.7 L over the past 24 hours. She is also metoprolol 25 mg by mouth twice a day. Blood pressure is soft. The patient is not hypotensive. She remains in atrial fibrillation. A. fib is under better control for now. The patient was echoes at 8.2 with a hemoglobin 11.8. Awaiting labs from today. Yesterday's creatinine was 0.8 with a BUN of 35. UA was negative. The patient is seen today 03/22/2023 in follow-up on the selective care unit. She is currently resting in bed. Awake and alert in no acute distress. She remains on IV diuretics. The family had declined thoracentesis. White count 8.0. Hemoglobin 11.3. Platelets 246. Sodium 138. Potassium 2.0. Bicarb 32. BUN 32 3. Creatinine 0.77. Glucose 100. She is currently in a -3 L balance. Potassium is being replaced. Then initiated on Aldactone. Objective - Vital Signs Vital signs: Vital Signs Temp 98 F 03/22/23 08:00 Pulse 97 03/22/23 08:00 Resp 16 03/22/23 08:00 BP 108/67 03/22/23 08:00 Pulse Ox 98 03/22/23 08:00 FiO2 Intake & Output 03/21/23 03/22/23 03/22/23 18:59 06:59 18:59 Intake Total 480 236 Output Total 1900 1600 500 Balance -1420 -1600 -264 Weight 84.2 kg Intake: Oral 480 236 Output: Urine 1900 1600 500 Other: Voiding Method Diaper Diaper Diaper External Catheter External Catheter External Catheter # Bowel Movements 1 - Exam GENERAL EXAM: Alert, pleasant 87-year-old female, on 2 L nasal cannula, comfortable in no apparent distress. HEAD: Normocephalic. EYES: Normal reaction of pupils, equal size. NOSE: Clear with pink turbinates. THROAT: No erythema or exudates. NECK: No masses, no JVD. CHEST: No chest wall deformity. LUNGS: Equal air entry with crackles, diminished in the bilateral bases right greater than left. CVS: Irregular rhythm consistent with atrial fibrillation and the patient has a murmur 3/6 over the left apex. ABDOMEN: No hepatosplenomegaly, normal bowel sounds, no guarding or rigidity. SPINE: No scoliosis or deformity SKIN: No rashes CENTRAL NERVOUS SYSTEM: No focal deficits, tone is normal in all 4 extremities. EXTREMITIES: There is no peripheral edema. No clubbing, no cyanosis. Peripheral pulses are intact. - Labs CBC & Chem 7: 03/22/23 07:32 03/22/23 07:32 Labs: Abnormal Lab Results - Last 24 Hours (Table) 03/21/23 03/21/23 03/22/23 Range/Units 16:24 20:22 07:32 Hgb 11.3 L (11.4-16.0) gm/dL RDW 19.7 H (11.5-15.5) % Potassium (3.5-5.1) mmol/L Carbon Dioxide (22-30) mmol/L BUN (7-17) mg/dL Glucose (74-99) mg/dL POC Glucose (mg/dL) 174 H 179 H (70-110) mg/dL Calcium (8.4-10.2) mg/dL Magnesium (1.6-2.3) mg/dL Total Bilirubin (0.2-1.3) mg/dL Alkaline Phosphatase (38-126) U/L Total Protein (6.3-8.2) g/dL Albumin (3.5-5.0) g/dL 03/22/23 03/22/23 03/22/23 Range/Units 07:32 07:32 11:51 Hgb (11.4-16.0) gm/dL RDW (11.5-15.5) % Potassium 2.0 L* (3.5-5.1) mmol/L Carbon Dioxide 32 H (22-30) mmol/L BUN 33 H (7-17) mg/dL Glucose 100 H (74-99) mg/dL POC Glucose (mg/dL) 147 H (70-110) mg/dL Calcium 8.3 L (8.4-10.2) mg/dL Magnesium 1.5 L (1.6-2.3) mg/dL Total Bilirubin 2.2 H (0.2-1.3) mg/dL Alkaline Phosphatase 150 H (38-126) U/L Total Protein 6.2 L (6.3-8.2) g/dL Albumin 2.7 L (3.5-5.0) g/dL Assessment and Plan Assessment: Acute on chronic dyspnea likely on the basis of CHF. The patient has obvious signs of fluid overload with positive JVD, presacral edema, and a large right- sided pleural effusion. The patient is being subject diuretics and the patient is currently on Lasix 40 mg IV every 8 hours and she is producing excellent urine output Acute hypoxic respiratory failure, 2 L of oxygen by nasal cannula Acute on chronic systolic congestive heart failure, improved Chronic systolic congestive heart failure Coronary artery disease with previous thrombectomy of OM, as the patient has an acute coronary syndrome 3 years back due to embolization to the distal OM and posterior thrombectomy, the patient had no residual stenosis Chronic atrial fibrillation, not on anticoagulation therapy because of previous history of rectal bleeding Benign essential hypertension Dyslipidemia Impaired hearing Plan: The patient was seen and evaluated Labs and medications reviewed Remains in a negative balance Replacing potassium Aldactone was added Patient family declined thoracentesis Titrate the FiO2 as tolerated DO NOT INTUBATE/DO NOT RESUSCITATE CODE STATUS We'll continue to follow I have personally seen and examined the patient, performed the documentation and the assessment and plan as written. Number of minutes spent on the visit: 10.
[2023-03-22] MEDS: POTASSIUM CHLORIDE ER 10 MEQ TAB.ER.PRT PO SCH (16:54)
[2023-03-22 17:11] LABS: Glucose,Whole Blood 187 mg/dL (70-110)
[2023-03-22 20:25] LABS: Glucose,Whole Blood 283 mg/dL (70-110)
[2023-03-23 05:58] LABS: Glucose,Whole Blood 136 mg/dL (70-110)
[2023-03-23] MEDS: POTASSIUM CHLORIDE ER 20 MEQ TAB.ER PO SCH ×2 (06:38→08:51)
[2023-03-23 07:53] LABS: African American GFR (CKD) 79 (>60 ml/min/1.73 sqM); Anion Gap 7 mmol/L; Blood Urea Nitrogen 33 mg/dL (7-17); Calcium 8.2 mg/dL (8.4-10.2); Carbon Dioxide 34 mmol/L (22-30); Chloride 98 mmol/L (98-107); Glucose 124 mg/dL (74-99); Non-African American GFR(CKD) 68 (>60 ml/min/1.73 sqM); Sodium 139 mmol/L (137-145)
[2023-03-23] MEDS: ASCORBIC ACID 500 MG TAB PO SCH ×2 (08:51→20:19)
[2023-03-23] MEDS: SPIRONOLACTONE 25 MG TAB PO SCH (08:51)
[2023-03-23] MEDS: ASPIRIN 81 MG PO SCH (08:51)
[2023-03-23] MEDS: FUROSEMIDE 10 MG/ML 4 ML VIAL IV SCH (08:51)
[2023-03-23] MEDS: PANTOPRAZOLE 40 MG/10 ML VIAL IV SCH (08:51)
[2023-03-23] MEDS: METOPROLOL TARTRATE 25 MG TAB PO SCH ×3 (08:51→20:14)
[2023-03-23] MEDS: ACETAMINOPHEN TAB 325 MG TAB PO PRN (08:53)
[2023-03-23] MEDS ORDERED: POTASSIUM CHLORIDE ER 20 MEQ TAB.ER PO STA (09:21)
[2023-03-23] MEDS ORDERED: METOPROLOL TARTRATE 25 MG TAB PO STA (10:03)
[2023-03-23 11:24] LABS: Glucose,Whole Blood 264 mg/dL (70-110)
--- NOTE | 2023-03-23 11:24 | P.PN ---
Subjective HISTORY OF PRESENT ILLNESS: This is an 87-year-old female who follows in the office with Dr. Paredes. Patient examined this morning. She is sitting up in the chair. Patient is complaining of leg cramps this morning. Patient's potassium was found to be low at 2.0. She is currently receiving supplementation. Telemetry reveals atrial fibrillation with controlled ventricular rate. March 23, 2023 Patient examined this morning. Patient is sitting up in the chair. Patient currently denies shortness of breath. Telemetry reveals atrial fibrillation with a heart rate between [id number]. Patients potassium remains low today at 3.0. PHYSICAL EXAM: VITAL SIGNS: Reviewed. GENERAL: Well-developed in no acute distress. NECK: Supple. No JVD or thyromegaly LUNGS: Respirations even and unlabored. Lungs essentially clear to auscultation bilaterally. HEART: Irregular rate and rhythm. S1 and S2 heard. EXTREMITIES: Normal range of motion. No clubbing or cyanosis. Peripheral pulses intact. 1+ bilateral lower extremity edema ASSESSMENT: Shortness of breath Moderate right-sided pleural effusion Chronic heart failure with reduced ejection fraction, EF 40-45% CAD status post PCI to OM in 2022, at [facility] Permanent atrial fibrillation not on anticoagulation due to rectal bleeding Hypertension Dyslipidemia Hypokalemia PLAN: Replace potassium Discontinue IV Lasix. Begin oral Lasix 40 mg twice a day Increase metoprolol to tartrate to 25 mg 3 times a day Continue telemetry monitoring Patient is not on anticoagulation secondary to history of GI bleeding Further recommendations pending patient's course Nurse practitioner note has been reviewed by physician. Signing provider agrees with the documented findings, assessment, and plan of care. Objective - Vital Signs Vital signs: Vital Signs Temp 97.5 F L 03/23/23 08:00 Pulse 122 H 03/23/23 08:00 Resp 16 03/23/23 08:00 BP 97/61 03/23/23 08:00 Pulse Ox 96 03/23/23 08:00 FiO2 Intake & Output 03/22/23 03/23/23 03/23/23 18:59 06:59 18:59 Intake Total 476 240 Output Total 500 750 Balance -24 -750 240 Weight 84.1 kg Intake: Oral 476 240 Output: Urine 500 750 Other: Voiding Method Diaper Diaper Diaper External Catheter External Catheter External Catheter - Labs CBC & Chem 7: 03/22/23 07:32 03/23/23 07:07 Labs: Abnormal Lab Results - Last 24 Hours (Table) 03/22/23 03/22/23 03/22/23 Range/Units 11:51 17:03 20:20 Potassium (3.5-5.1) mmol/L Carbon Dioxide (22-30) mmol/L BUN (7-17) mg/dL Glucose (74-99) mg/dL POC Glucose (mg/dL) 147 H 187 H 283 H (70-110) mg/dL Calcium (8.4-10.2) mg/dL 03/23/23 03/23/23 Range/Units 05:52 07:07 Potassium 3.0 L (3.5-5.1) mmol/L Carbon Dioxide 34 H (22-30) mmol/L BUN 33 H (7-17) mg/dL Glucose 124 H (74-99) mg/dL POC Glucose (mg/dL) 136 H (70-110) mg/dL Calcium 8.2 L (8.4-10.2) mg/dL
--- NOTE | 2023-03-23 11:52 | P.PN ---
Subjective Progress Note Date: 03/23/23 87-year-old. Patient has less for worsening shortness of breath and a large right-sided pleural effusion. Her last hospitalization for the same was in December 2022. At that time, thoracentesis was offered in the family declined due to her age and comorbidities. I was consulted for the same today. I see that the patient is on 3 L of Oxymizer nasal cannula. The patient is known to have CAD, CHF, hypertension hyperlipidemia and chronic atrial fibrillation. The patient is coming in for increased lower extremity edema, presacral edema and shortness of breath. The patient has been taken Demadex on outpatient basis. Her last cardiac catheterization was done in July 2022. This was done at [facility]. The patient has distal OM lesion 95% and the patient is undergone coronary thrombectomy with no significant residual disease. She denies having any chest pain. No cough or sputum production. She is not in favor of doing a thoracentesis of this point in time. She wants to be treated medically. He had DNR/DNI CODE STATUS. On 03/21/2023, the patient is stable on room air oxygen. No significant respiratory difficulty speech is responding nicely to the diuretics and the patient is on Lasix 40 mg IV every 8 hours. Fluid balance is -2.7 L over the past 24 hours. She is also metoprolol 25 mg by mouth twice a day. Blood pressure is soft. The patient is not hypotensive. She remains in atrial fibrillation. A. fib is under better control for now. The patient was echoes at 8.2 with a hemoglobin 11.8. Awaiting labs from today. Yesterday's creatinine was 0.8 with a BUN of 35. UA was negative. The patient is seen today 03/22/2023 in follow-up on the selective care unit. She is currently resting in bed. Awake and alert in no acute distress. She remains on IV diuretics. The family had declined thoracentesis. White count 8.0. Hemoglobin 11.3. Platelets 246. Sodium 138. Potassium 2.0. Bicarb 32. BUN 32 3. Creatinine 0.77. Glucose 100. She is currently in a -3 L balance. Potassium is being replaced. Then initiated on Aldactone. The patient is seen today March 23, 2023 in follow-up on the selective care unit. She is currently sitting up in a chair at the bedside. She is awake and alert in no acute distress. Family is present. She denies any worsening shortness of breath, cough or congestion. She is maintaining O2 saturations in the 90s on room air. She remains on oral diuretics. Potassium is being replaced. Sodium 139. Potassium 3.0. Bicarb 34. BUN 33. Creatinine 0.79. Glucose 124. Objective - Vital Signs Vital signs: Vital Signs Temp 97.5 F L 03/23/23 08:00 Pulse 122 H 03/23/23 08:00 Resp 16 03/23/23 08:00 BP 97/61 03/23/23 08:00 Pulse Ox 96 03/23/23 08:00 FiO2 Intake & Output 03/22/23 03/23/23 03/23/23 18:59 06:59 18:59 Intake Total 476 240 Output Total 500 750 Balance -24 -750 240 Weight 84.1 kg Intake: Oral 476 240 Output: Urine 500 750 Other: Voiding Method Diaper Diaper Diaper External Catheter External Catheter External Catheter - Exam GENERAL EXAM: Alert, 87-year-old female, on room air, up in a chair, comfortable in no apparent distress. HEAD: Normocephalic. EYES: Normal reaction of pupils, equal size. NOSE: Clear with pink turbinates. THROAT: No erythema or exudates. NECK: No masses, no JVD. CHEST: No chest wall deformity. LUNGS: Equal air entry with crackles, diminished in the bilateral bases right greater than left. CVS: Irregular rhythm consistent with atrial fibrillation and the patient has a murmur 3/6 over the left apex. ABDOMEN: No hepatosplenomegaly, normal bowel sounds, no guarding or rigidity. SPINE: No scoliosis or deformity SKIN: No rashes CENTRAL NERVOUS SYSTEM: No focal deficits, tone is normal in all 4 extremities. EXTREMITIES: There is no peripheral edema. No clubbing, no cyanosis. Periphera l pulses are intact. - Labs CBC & Chem 7: 03/22/23 07:32 03/23/23 07:07 Labs: Abnormal Lab Results - Last 24 Hours (Table) 03/22/23 03/22/23 03/22/23 Range/Units 11:51 17:03 20:20 Potassium (3.5-5.1) mmol/L Carbon Dioxide (22-30) mmol/L BUN (7-17) mg/dL Glucose (74-99) mg/dL POC Glucose (mg/dL) 147 H 187 H 283 H (70-110) mg/dL Calcium (8.4-10.2) mg/dL 03/23/23 03/23/23 03/23/23 Range/Units 05:52 07:07 11:23 Potassium 3.0 L (3.5-5.1) mmol/L Carbon Dioxide 34 H (22-30) mmol/L BUN 33 H (7-17) mg/dL Glucose 124 H (74-99) mg/dL POC Glucose (mg/dL) 136 H 264 H (70-110) mg/dL Calcium 8.2 L (8.4-10.2) mg/dL Assessment and Plan Assessment: Acute on chronic dyspnea likely on the basis of CHF. The patient has obvious signs of fluid overload with positive JVD, presacral edema, and a large right- sided pleural effusion. The patient is receiving diuretics and the patient is currently on room air Acute hypoxic respiratory failure, recovered and on room air Acute on chronic systolic congestive heart failure, improved Chronic systolic congestive heart failure Coronary artery disease with previous thrombectomy of OM, as the patient has an acute coronary syndrome 3 years back due to embolization to the distal OM and posterior thrombectomy, the patient had no residual stenosis Chronic atrial fibrillation, not on anticoagulation therapy because of previous history of rectal bleeding Benign essential hypertension Dyslipidemia Impaired hearing Plan: The patient was seen and evaluated Labs and medications reviewed Replacing potassium Aldactone was added Improved and on room air DO NOT INTUBATE/DO NOT RESUSCITATE CODE STATUS Plan is for home with home care per family request This patient was seen independently by the pulmonary nurse practitioner addressing pulmonary issues I have personally seen and examined the patient, performed the documentation and the assessment and plan as written. Number of minutes spent on the visit: 24.
--- NOTE | 2023-03-23 15:03 | P.PN ---
Subjective Progress Note Date: 03/23/23 03/22/2023 This is a 87-year-old female admitted with acute on chronic CHF exacerbation, systolic dysfunction, multifactorial with large right-sided pleural effusion and multiple other medical issues. Family declined thoracentesis, patient continues on IV push diuretics. Potassium 2 and magnesium 1.5, receiving multiple supplements. Denies chest pain, palpitations or shortness of breath. Maintaining O2 sats in my 90s on room air currently. 03/23/2023 reports she is breathing better .continues on oral diuretics ,sitting up in chair, maintaining O2 sats in the 90s on room air. Received potassium supplements throughout the day yesterday, currently 3. Additional supplements ordered. Creatinine stable Objective - Vital Signs Vital signs: Vital Signs Temp 97.5 F L 03/23/23 08:00 Pulse 98 03/23/23 14:00 Resp 16 03/23/23 14:00 BP 86/59 03/23/23 12:00 Pulse Ox 98 03/23/23 12:00 FiO2 Intake & Output 03/22/23 03/23/23 03/23/23 18:59 06:59 18:59 Intake Total 476 358 Output Total 500 750 Balance -24 -750 358 Weight 84.1 kg Intake: Oral 476 358 Output: Urine 500 750 Other: Voiding Method Diaper Diaper Diaper External Catheter External Catheter External Catheter - Exam PHYSICAL EXAM: VITAL SIGNS: As above GENERAL: Alert and oriented x 2-3 ,sitting up in chair, no acute distress, TUOLUMNE HEENT: Normocephalic Conjunctivae normal. eyes normal. NECK: Supple, No JVD. CARDIOVASCULAR: S1, S2.irregular. Systolic murmur RESPIRATION: Unlabored, equal air entry with bilateral base crackles. ABDOMEN: Soft, nondistended, nontender . No guarding. no masses palpable. +BS LEGS: minimal edema, positive DP pulses. NERVOUS SYSTEM: Cranial N 2-12 grossly normal. Skin: Warm and dry, no rash - Labs CBC & Chem 7: 03/22/23 07:32 03/23/23 07:07 Labs: Abnormal Lab Results - Last 24 Hours (Table) 03/22/23 03/22/23 03/23/23 Range/Units 17:03 20:20 05:52 Potassium (3.5-5.1) mmol/L Carbon Dioxide (22-30) mmol/L BUN (7-17) mg/dL Glucose (74-99) mg/dL POC Glucose (mg/dL) 187 H 283 H 136 H (70-110) mg/dL Calcium (8.4-10.2) mg/dL 03/23/23 03/23/23 Range/Units 07:07 11:23 Potassium 3.0 L (3.5-5.1) mmol/L Carbon Dioxide 34 H (22-30) mmol/L BUN 33 H (7-17) mg/dL Glucose 124 H (74-99) mg/dL POC Glucose (mg/dL) 264 H (70-110) mg/dL Calcium 8.2 L (8.4-10.2) mg/dL Assessment and Plan Assessment: Dyspnea, secondary to moderate right-sided pleural effusion, acute on chronic CHF systolic dysfunction secondary to fluid overload. Family declined thoracentesis. Acute hypoxic respiratory failure secondary to the above, improving Chronic atrial fibrillation not on anticoagulation secondary to history of rectal bleeding Hyperkalemia on admission Hypokalemia Hypomagnesemia Acute Metabolic encephalopathy secondary to the above and electrolyte abnorm. CAD, history of TX, status post PCI to OM in 2022 Benign essential hypertension Dyslipidemia Obesity, BMI 30 No code Plan:: Continue on current medication regime ,monitoring and symptomatic treatment. Potassium replacements ordered. diuretics as per pulmonary. Discharge planning in progress for home with home care tomorrow, declining subacute rehab. Prognosis guarded given multiple complex medical issues. The impression and plan of care has been dictated as directed. : I performed a history and examination of this patient, discussed the same with the dictator. I agree with the dictator's note ,documented as a scribe. Any additional findings or plans will be noted.
[2023-03-23] MEDS: POTASSIUM CHLORIDE ER 10 MEQ TAB.ER.PRT PO SCH (15:43)
[2023-03-23] MEDS: FUROSEMIDE 40 MG TAB PO SCH (15:44)
[2023-03-23 16:36] LABS: Glucose,Whole Blood 217 mg/dL (70-110)
[2023-03-23 20:14] LABS: Glucose,Whole Blood 185 mg/dL (70-110)
[2023-03-24 01:10] LABS: Glucose,Whole Blood 143 mg/dL (70-110)
[2023-03-24 05:47] LABS: Glucose,Whole Blood 133 mg/dL (70-110)
[2023-03-24] MEDS: POTASSIUM CHLORIDE ER 20 MEQ TAB.ER PO SCH ×2 (06:49→10:11)
[2023-03-24 08:12] VITALS: TEMP 97.3
[2023-03-24 08:53] LABS: African American GFR (CKD) 74 (>60 ml/min/1.73 sqM); Anion Gap 6 mmol/L; Blood Urea Nitrogen 35 mg/dL (7-17); Calcium 8.4 mg/dL (8.4-10.2); Carbon Dioxide 33 mmol/L (22-30); Chloride 96 mmol/L (98-107); Glucose 138 mg/dL (74-99); Magnesium 2.1 mg/dL (1.6-2.3); Non-African American GFR(CKD) 64 (>60 ml/min/1.73 sqM); Potassium 4.4 mmol/L (3.5-5.1); Sodium 135 mmol/L (137-145)
[2023-03-24] MEDS: PANTOPRAZOLE 40 MG/10 ML VIAL IV SCH (10:10)
[2023-03-24] MEDS: SPIRONOLACTONE 25 MG TAB PO SCH (10:10)
[2023-03-24] MEDS: ASPIRIN 81 MG PO SCH (10:10)
[2023-03-24] MEDS: FUROSEMIDE 40 MG TAB PO SCH (10:11)
[2023-03-24] MEDS: METOPROLOL TARTRATE 25 MG TAB PO SCH (10:11)
[2023-03-24] MEDS: ASCORBIC ACID 500 MG TAB PO SCH (10:11)
[2023-03-24] MEDS: ACETAMINOPHEN TAB 325 MG TAB PO PRN (10:22)
--- NOTE | 2023-03-24 11:16 | P.PN ---
Subjective Progress Note Date: 03/24/23 87-year-old. Patient has less for worsening shortness of breath and a large right-sided pleural effusion. Her last hospitalization for the same was in December 2022. At that time, thoracentesis was offered in the family declined due to her age and comorbidities. I was consulted for the same today. I see that the patient is on 3 L of Oxymizer nasal cannula. The patient is known to have CAD, CHF, hypertension hyperlipidemia and chronic atrial fibrillation. The patient is coming in for increased lower extremity edema, presacral edema and shortness of breath. The patient has been taken Demadex on outpatient basis. Her last cardiac catheterization was done in July 2022. This was done at [facility]. The patient has distal OM lesion 95% and the patient is undergone coronary thrombectomy with no significant residual disease. She denies having any chest pain. No cough or sputum production. She is not in favor of doing a thoracentesis of this point in time. She wants to be treated medically. He had DNR/DNI CODE STATUS. On 03/21/2023, the patient is stable on room air oxygen. No significant respiratory difficulty speech is responding nicely to the diuretics and the patient is on Lasix 40 mg IV every 8 hours. Fluid balance is -2.7 L over the past 24 hours. She is also metoprolol 25 mg by mouth twice a day. Blood pressure is soft. The patient is not hypotensive. She remains in atrial fibrillation. A. fib is under better control for now. The patient was echoes at 8.2 with a hemoglobin 11.8. Awaiting labs from today. Yesterday's creatinine was 0.8 with a BUN of 35. UA was negative. The patient is seen today 03/22/2023 in follow-up on the selective care unit. She is currently resting in bed. Awake and alert in no acute distress. She remains on IV diuretics. The family had declined thoracentesis. White count 8.0. Hemoglobin 11.3. Platelets 246. Sodium 138. Potassium 2.0. Bicarb 32. BUN 32 3. Creatinine 0.77. Glucose 100. She is currently in a -3 L balance. Potassium is being replaced. Then initiated on Aldactone. The patient is seen today March 23, 2023 in follow-up on the selective care unit. She is currently sitting up in a chair at the bedside. She is awake and alert in no acute distress. Family is present. She denies any worsening shortness of breath, cough or congestion. She is maintaining O2 saturations in the 90s on room air. She remains on oral diuretics. Potassium is being replaced. Sodium 139. Potassium 3.0. Bicarb 34. BUN 33. Creatinine 0.79. Glucose 124. The patient is seen today March 24, 2023 and follow-up on the selective care unit. She is awake and alert in no acute distress. Sitting up in a chair at the bedside. Family is at the bedside. She is maintaining good O2 saturations in the 90s on room air. She has been afebrile. Sodium 135. Potassium 4.4. Bicarb 33. BUN 35. Creatinine 0.83. Glucose 138. She remains on Demadex and Aldactone. Remains in a negative balance. Objective - Vital Signs Vital signs: Vital Signs Temp 97.3 F L 03/24/23 08:00 Pulse 135 H 03/24/23 08:00 Resp 18 03/24/23 08:00 BP 100/62 03/24/23 08:00 Pulse Ox 97 03/24/23 08:00 FiO2 Intake & Output 03/23/23 03/24/23 03/24/23 18:59 06:59 18:59 Intake Total 476 Output Total 525 Balance 476 -525 Intake: Oral 476 Output: Urine 525 Other: Voiding Method Diaper Diaper Diaper External Catheter External Catheter External Catheter # Bowel Movements 1 - Exam GENERAL EXAM: Alert, pleasant 87-year-old female, up in a chair, in no apparent distress. HEAD: Normocephalic. EYES: Normal reaction of pupils, equal size. NOSE: Clear with pink turbinates. THROAT: No erythema or exudates. NECK: No masses, no JVD. CHEST: No chest wall deformity. LUNGS: Equal air entry with crackles, diminished in the bilateral bases right g reater than left. On room air. CVS: Irregular rhythm consistent with atrial fibrillation and the patient has a murmur 3/6 over the left apex. ABDOMEN: No hepatosplenomegaly, normal bowel sounds, no guarding or rigidity. SPINE: No scoliosis or deformity SKIN: No rashes CENTRAL NERVOUS SYSTEM: No focal deficits, tone is normal in all 4 extremities. EXTREMITIES: There is no peripheral edema. No clubbing, no cyanosis. Peripheral pulses are intact. - Labs CBC & Chem 7: 03/22/23 07:32 03/24/23 07:33 Labs: Abnormal Lab Results - Last 24 Hours (Table) 03/23/23 03/23/23 03/23/23 Range/Units 11:23 16:34 20:08 Sodium (137-145) mmol/L Chloride (98-107) mmol/L Carbon Dioxide (22-30) mmol/L BUN (7-17) mg/dL Glucose (74-99) mg/dL POC Glucose (mg/dL) 264 H 217 H 185 H (70-110) mg/dL 03/24/23 03/24/23 03/24/23 Range/Units 01:08 05:41 07:33 Sodium 135 L (137-145) mmol/L Chloride 96 L (98-107) mmol/L Carbon Dioxide 33 H (22-30) mmol/L BUN 35 H (7-17) mg/dL Glucose 138 H (74-99) mg/dL POC Glucose (mg/dL) 143 H 133 H (70-110) mg/dL Assessment and Plan Assessment: Acute on chronic dyspnea likely on the basis of CHF. Large right-sided pleural effusion. The patient is receiving diuretics and the patient is currently on room air Acute hypoxic respiratory failure, recovered and on room air Acute on chronic systolic congestive heart failure, improved Chronic systolic congestive heart failure Coronary artery disease with previous thrombectomy of OM, as the patient has an acute coronary syndrome 3 years back due to embolization to the distal OM and posterior thrombectomy, the patient had no residual stenosis Chronic atrial fibrillation, not on anticoagulation therapy because of previous history of rectal bleeding Benign essential hypertension Dyslipidemia Impaired hearing Plan: The patient was seen and evaluated Labs and medications reviewed To be on Demadex and Aldactone Continue potassium replacement Improved and on room air Plan is for home with home care at discharge This patient was seen independently by the pulmonary nurse practitioner addressing pulmonary issues I have personally seen and examined the patient, performed the documentation and the assessment and plan as written. Number of minutes spent on the visit: 22.
[2023-03-24 11:33] LABS: Glucose,Whole Blood 207 mg/dL (70-110)
[2023-03-24 11:35] VITALS: BP 94/68; PULSE 109; RESP 16
--- NOTE | 2023-03-24 13:17 | P.PN ---
Subjective HISTORY OF PRESENT ILLNESS: This is an 87-year-old female who follows in the office with Dr. Paredes. Patient examined this morning. She is sitting up in the chair. Patient is complaining of leg cramps this morning. Patient's potassium was found to be low at 2.0. She is currently receiving supplementation. Telemetry reveals atrial fibrillation with controlled ventricular rate. March 23, 2023 Patient examined this morning. Patient is sitting up in the chair. Patient currently denies shortness of breath. Telemetry reveals atrial fibrillation with a heart rate between [id number]. Patients potassium remains low today at 3.0. March 24, 2023 Patient examined this morning. She is sitting up in the chair. She currently denies chest pain or pressure. She denies shortness of breath. She reports feeling tired this morning and states she has been up since 3 AM. Patient's blood pressures remain soft with a systolic blood pressure in the 90s. Telemetry reveals atrial fibrillation with heart rate ranging between [id number]. She is currently on metoprolol 25 mg 3 times a day. PHYSICAL EXAM: VITAL SIGNS: Reviewed. GENERAL: Well-developed in no acute distress. NECK: Supple. No JVD or thyromegaly LUNGS: Respirations even and unlabored. Lungs essentially clear to auscultation bilaterally. HEART: Irregular rate and rhythm. S1 and S2 heard. EXTREMITIES: Normal range of motion. No clubbing or cyanosis. Peripheral pulses intact. 1+ bilateral lower extremity edema ASSESSMENT: Shortness of breath Moderate right-sided pleural effusion Chronic heart failure with reduced ejection fraction, EF 40-45% CAD status post PCI to OM in 2022, at [facility] Permanent atrial fibrillation not on anticoagulation due to rectal bleeding Hypertension Dyslipidemia Hypokalemia PLAN: Continue metoprolol tartrate 25 mg 3 times a day Continue additional cardiac medications Change Lasix to Demadex 40 mg daily Continue Aldactone Decrease potassium supplementation at discharge secondary to addition of Aldactone Patient is not on anticoagulation secondary to history of GI bleeding Further recommendations pending patient's course Nurse practitioner note has been reviewed by physician. Signing provider agrees with the documented findings, assessment, and plan of care. Objective - Vital Signs Vital signs: Vital Signs Temp 97.3 F L 03/24/23 11:16 Pulse 109 H 03/24/23 11:16 Resp 16 03/24/23 11:16 BP 94/68 03/24/23 11:16 Pulse Ox 97 03/24/23 11:16 FiO2 Intake & Output 03/23/23 03/24/23 03/24/23 18:59 06:59 18:59 Intake Total 476 Output Total 525 Balance 476 -525 Intake: Oral 476 Output: Urine 525 Other: Voiding Method Diaper Diaper Diaper External Catheter External Catheter External Catheter # Bowel Movements 1 - Labs CBC & Chem 7: 03/22/23 07:32 03/24/23 07:33 Labs: Abnormal Lab Results - Last 24 Hours (Table) 03/23/23 03/23/23 03/24/23 Range/Units 16:34 20:08 01:08 Sodium (137-145) mmol/L Chloride (98-107) mmol/L Carbon Dioxide (22-30) mmol/L BUN (7-17) mg/dL Glucose (74-99) mg/dL POC Glucose (mg/dL) 217 H 185 H 143 H (70-110) mg/dL 03/24/23 03/24/23 03/24/23 Range/Units 05:41 07:33 11:31 Sodium 135 L (137-145) mmol/L Chloride 96 L (98-107) mmol/L Carbon Dioxide 33 H (22-30) mmol/L BUN 35 H (7-17) mg/dL Glucose 138 H (74-99) mg/dL POC Glucose (mg/dL) 133 H 207 H (70-110) mg/dL
--- NOTE | 2023-03-24 14:10 | P.DS ---
Providers Date of admission: 03/19/23 15:48 Expected date of discharge: 03/24/23 Attending physician: Akin Hopper MD Consults: 03/19/23 15:44 Consult Physician Routine Consulting Provider: Warren Lim Consult Reason/Comments: pleuralEffusion Do you want consulting provider notified?: Yes Consult Physician Routine Consulting Provider: Gabriella Gallegos Consult Reason/Comments: chf Do you want consulting provider notified?: Yes Primary care physician: Akin Hopper MD Hospital Course: Final Diagnoses: Dyspnea, secondary to moderate right-sided pleural effusion, acute on chronic CHF systolic dysfunction secondary to fluid overload. Family declined thoracentesis. Acute hypoxic respiratory failure secondary to the above, improving Chronic atrial fibrillation not on anticoagulation secondary to history of rectal bleeding Hyperkalemia on admission Hypokalemia Hypomagnesemia Acute Metabolic encephalopathy secondary to the above and electrolyte abnorm. CAD, history of ND, status post PCI to OM in 2022 Benign essential hypertension Dyslipidemia Obesity, BMI 30 No code Hospital course:This is a 87-year-old female admitted with acute on chronic CHF exacerbation, systolic dysfunction, multifactorial with large right-sided pleural effusion and multiple other medical issues. Family declined thoracentesis, patient continues on IV push diuretics. Potassium 2 and magnesium 1.5, receiving multiple supplements. Denies chest pain, palpitations or shortness of breath. Maintaining O2 sats in my 90s on room air currently. 03/23/2023 reports she is breathing better .continues on oral diuretics ,sitting up in chair, maintaining O2 sats in the 90s on room air. Received potassium supplements throughout the day yesterday, currently 3. Additional supplements ordered. Creatinine stable Evaluated by PT, subacute rehab recommended, family declined. IV push Lasix transitioned to oral, metoprolol increased. Continues on Demadex and Aldactone. 24-hour I&O reflecting a negative fluid balance .potassium 4.4, magnesium 2.1. Bicarb 33, renal function stable. sitting up in chair, denies chest pain, palpitations or shortness of breath. Maintaining O2 sats in the 90s on room air. afebrile. Patient will be discharged home today with home care in a stable condition with guarded prognosis pending final DC recommendations and clearance per both cardiology and pulmonary. Repeat BMP on 03/26/2023. The impression and plan of care has been dictated as directed. : I performed a history and examination of this patient, discussed the same with the dictator. I agree with the dictator's note ,documented as a scribe. Any additional findings or plans will be noted. Patient Condition at Discharge: Stable Plan - Discharge Summary Discharge Rx Participant: No New Discharge Prescriptions: New Torsemide [Demadex] 40 mg PO DAILY #60 tab Acetaminophen Tab [Tylenol] 650 mg PO Q6HR PRN tab PRN Reason: Fever And/ Or Pain Metoprolol Tartrate [Lopressor] 25 mg PO TID #90 tab Spironolactone [Aldactone] 25 mg PO DAILY #30 tab Continue Potassium Chloride ER [K-Dur 20] 20 meq PO BID@0500,1100 Therafood 1 dose PO BID Ascorbic Acid [Vitamin C] 500 mg PO BID Renafood 1 dose PO BID Pro-T 1 dose PO BID Lifeblood 1 dose PO BID Chlorophyll 1 dose PO BID Cardio Plus 1 dose PO BID Triamcinolone 0.1% Cream [Kenalog 0.1% Cream] 1 applic TOPICAL BID B-Core 1 dose PO BID Nystatin 100,000 Unit/gm Powd [Mycostatin Powder] 1 applic TOPICAL BID PRN PRN Reason: thigh/stomach rash Nystatin 100,000 Unit/gm Oint [Mycostatin Oint] 1 applic TOPICAL BID Discontinued Potassium Chloride ER [K-Dur 20] 10 meq PO DAILY@1700 Torsemide [Demadex] 20 mg PO DAILY Metoprolol Succinate (ER) [Toprol XL] 25 mg PO DAILY Discharge Medication List Ascorbic Acid [Vitamin C] 500 mg PO BID 03/19/23 [History] B-Core 1 dose PO BID 03/19/23 [History] Cardio Plus 1 dose PO BID 03/19/23 [History] Chlorophyll 1 dose PO BID 03/19/23 [History] Lifeblood 1 dose PO BID 03/19/23 [History] Nystatin 100,000 Unit/gm Oint [Mycostatin Oint] 1 applic TOPICAL BID 03/19/23 [History] Nystatin 100,000 Unit/gm Powd [Mycostatin Powder] 1 applic TOPICAL BID PRN 03/19/23 [History] Potassium Chloride ER [K-Dur 20] 20 meq PO BID@0500,1100 03/19/23 [History] Pro-T 1 dose PO BID 03/19/23 [History] Renafood 1 dose PO BID 03/19/23 [History] Therafood 1 dose PO BID 03/19/23 [History] Triamcinolone 0.1% Cream [Kenalog 0.1% Cream] 1 applic TOPICAL BID 03/19/23 [History] Acetaminophen Tab [Tylenol] 650 mg PO Q6HR PRN tab 03/24/23 [Rx] Metoprolol Tartrate [Lopressor] 25 mg PO TID #90 tab 03/24/23 [Rx] Spironolactone [Aldactone] 25 mg PO DAILY #30 tab 03/24/23 [Rx] Torsemide [Demadex] 40 mg PO DAILY #60 tab 03/24/23 [Rx] Follow up Appointment(s)/Referral(s): Akin Hopper MD [Primary Care Provider] - 03/30/23 1:00 pm (Wednesday at [facility]) Ousmane Paredes MD [STAFF PHYSICIAN] - 03/30/23 2:30 pm (Wednesday-previously sche duled appointment) [facility] [NON-STAFF] - Ambulatory/Diagnostic Orders: Basic Metabolic Panel [LAB.AMB] Time Frame: 03/26/23, Location: None Selected Patient Instructions/Handouts: A-fib (Atrial Fibrillation) (DC), Pleural Effusion (DC) Activity/Diet/Wound Care/Special Instructions: Compression stockings Declined subacute rehab at this time Discharge Disposition: HOME WITH HOME HEALTH SERVICES
[2023-03-25] MEDS ORDERED: TORSEMIDE 20 MG TAB PO SCH (09:00)
== END 2023-03-24 13:28 | disposition home health service (06) | DRG 291 ==
LOC: EC 12:34 → 3SCARD 15:48
PROVIDERS: ADMIT Family Medicine; ATTEND Family Medicine
DX: I11.0 Hypertensive heart disease with heart failure (principal); G93.41 Metabolic encephalopathy; I50.23 Acute on chronic systolic (congestive) heart failure; J96.01 Acute respiratory failure with hypoxia; E87.20 Acidosis, unspecified; I48.21 Permanent atrial fibrillation; N17.9 Acute kidney failure, unspecified; E78.5 Hyperlipidemia, unspecified; I42.9 Cardiomyopathy, unspecified; Z51.5 Encounter for palliative care; I25.10 Atherosclerotic heart disease of native coronary artery without angina pectoris; E66.9 Obesity, unspecified; E83.42 Hypomagnesemia; E87.5 Hyperkalemia; E87.6 Hypokalemia; H91.90 Unspecified hearing loss, unspecified ear; I25.2 Old myocardial infarction; Z68.30 Body mass index [BMI] 30.0-30.9, adult; Z79.899 Other long term (current) drug therapy; Z82.49 Family history of ischemic heart disease and other diseases of the circulatory system; Z98.61 Coronary angioplasty status; Z88.5 Allergy status to narcotic agent; Z87.19 Personal history of other diseases of the digestive system
CPT/HCPCS: 36415; 71045; 80048; 80053; 81001; 83605; 83735; 83880; 84100; 84132; 84443; 84484; 85025; 85610; 85730; 93005; 94640; 96374; 99291